=== PATIENT | female | born 2000 | race Caucasian/White ===

== ENCOUNTER 2020-01-30 04:03 | Inpatient (IN) | payer OTHER ==
--- OUTSIDE RECORDS SUMMARY | 2020-01-30 04:05 | XMS REPORT | Continuity of Care Document ---
:2000 Author Organization [facility] t Address [address]. [address] [place] [address] Care Team Providers Name Role Phone Pcp, Does Not Have A Attending Clinician Donnell Mota MD Attending Clinician [place], Sherita Main Attending Clinician Unavailable Doctor Unassigned, Name Attending Clinician Unavailable 2, Lab Attending Clinician Unavailable Nurse, Women's Health Attending Clinician Unavailable Eliecer FAULKNER Attending Clinician Problems This patient has no known problems. Allergies, Adverse Reactions, Alerts This patient has no known allergies or adverse reactions. Medications This patient has no known medications. Procedures This patient has no known procedures. Encounters Start End Encounter Admission Attending Care Care Encounter Source Date/Time Date/Time Type Type Clinicians Facility Department ID 2019-06-13 2019-06-13 Telephone Pcp, [facility] [id number] 00:00:00 00:00:00 Patient [place] [id number] Does Not [place] [id number] Have A Professio [phone] [address] 2019-06-13 2019-06-13 Case Verena Mota [facility] [id number] 00:00:00 00:00:00 Management Cam [place] [id number] [place] [id number] Professio [phone] [address] 2019-06-11 2019-06-11 [employer] Bhavna Narayanan [facility] [id number] 10:45:08 11:00:08 Visit Lab Main [place] [id number] [place] [id number] Professio [phone] [address] 2019-06-11 2019-06-11 Orders Doctor JENNIFER [id number] 00:00:00 00:00:00 Only Unassigned, [place] [id number] [facility] [id number] 2019-06-09 2019-06-09 [employer] 2, [facility] [place] [id number] 13:04:36 13:19:36 Visit Julien [id number] [place] [id number] Professio [phone] [address] 2019-06-09 2019-06-09 Telemedici Verena Mota [facility] [id number] 08:07:08 10:52:20 ne Visit Donnell [place] [id number] [place] [id number] Professio [phone] [address] 2019-05-31 2019-05-31 Telephone Nurse, [facility] [id number] 00:00:00 00:00:00 Women's Julien [id number] Health [place] [id number] Professio [phone] [address] 2019-05-03 2019-05-03 Office Eliecer [facility] [id number] 10:44:19 11:28:14 Visit Nano [place] [id number] [place] [id number] Professio [phone] [address] Results This patient has no known results.
[2020-01-30] MEDS ORDERED: MEPERIDINE HCL 25 MG/ML SYR IV PRN (04:09)
[2020-01-30] MEDS ORDERED: Ringers Lactate 1,000 ML IV PRN (04:09)
[2020-01-30] MEDS ORDERED: PROMETHAZINE INJ 25 MG/ML AMP IM PRN (04:09)
[2020-01-30] MEDS ORDERED: BUTORPHANOL 1 MG/ML INJ IV PRN (04:09)
[2020-01-30] MEDS ORDERED: CARBOPROST TROME 250 MCG/ML IM PRN (04:09)
[2020-01-30] MEDS ORDERED: METHYLERGONOVINE 0.2MG/ML AMP IM PRN (04:09)
[2020-01-30] MEDS ORDERED: OXYTOCIN/LR 20 UNIT/1,000 ML BAG IV SCH (05:00)
[2020-01-30] MEDS ORDERED: Ringers Lactate 1,000 ML IV SCH (05:00)
[2020-01-30 05:56] LABS: Urine Appearance TURBID; Urine Bilirubin NEGATIVE (NEG); Urine Blood NEGATIVE (NEG); Urine Color YELLOW; Urine Glucose NEGATIVE (NEG); Urine Protein 1+ (NEG)
[2020-01-30 05:57] LABS: Basophils % 0.2 % (0-1.3); Hematocrit 40.4 % (36.0-45.0); Lymphocytes % 39.1 % (15.3-44.8); RBC Red Blood Cell Count 4.53 M/uL (3.86-4.86)
[2020-01-30 06:18] LABS: Urine Bacteria >50 /HPF (<20); Urine RBC <5 /HPF (NONE SEEN); Urine Urothelial Cells <5 /HPF (NONE SEEN)
[2020-01-30 06:32] VITALS: BMI 4780.4
[2020-01-30 07:47] LABS: Urine Appearance CLEAR; Urine Bilirubin NEGATIVE (NEG); Urine Blood NEGATIVE (NEG); Urine Color YELLOW; Urine Glucose NEGATIVE (NEG); Urine Protein NEGATIVE (NEG); Urine Specific Gravity <=1.005 (1.005-1.030); Urine Urobilinogen 0.2 mg/dL (0.2-1.0); Urine pH 7.5 (5.0-7.0)
[2020-01-30 08:02] LABS: Urine Bacteria <20 /HPF (<20); Urine RBC <5 /HPF (NONE SEEN)
[2020-01-30 08:03] LABS: Urine Urothelial Cells <5 /HPF (NONE SEEN)
--- NOTE | 2020-01-30 11:47 | PREOPHP ---
Date of Admission: 01/30/2020 History Of Present Illness: A 19-year-old 2, para 0, now at 39 weeks, followed antepartum wi thout complications. Family History: The patient is a twin, but otherwise no significant family history. Past Medical History: She has had her wisdom teeth removed. Had chlamydia in the past, but that was treated. Medications: She is on vitamins. Social History: Does not smoke. Allergies: NO ALLERGIES. Physical Examination: HEENT: Clear. Pupils equal, round, reactive to light and accommodation. Conjunctivae well perfused . No oral, lingual, or buccal lesions. Chest and Lungs: Clear. Heart: Without murmurs, thrills, heaves, or rubs. Breasts: Not examined. Abdomen: Term size. Baby is vertex. Cervix is 2 cm, possibly 2.5, 60 to 70% effaced, vertex well a pplied, -1 station. FHTs normal reactive. Rupture of membranes, clear fluid. Assessment And Plan: The patient is COVID positive. She will merit wearing her mask throughout the labor. She has absolutely no symptoms. Thorough discussion today. Labor talk given. Anticipate delivery sometime later today. LUIS ARMANDO/WISAM Voice ID: [id number]
[2020-01-30] MEDS ORDERED: FENTANYL/BUPIVACAINE/NS/PF 200 MCG/100 ML BAG EP PRN (11:54)
[2020-01-30] MEDS ORDERED: FENTANYL CITR 100 MCG/2 ML IV ONE (11:54)
[2020-01-30] MEDS ORDERED: BUPIVACAINE 0.25% PF 10 ML VIAL IV PRN (11:54)
--- NOTE | 2020-01-30 12:33 | PN ---
The patient is now on 18 milliunits, jose regularly. FHTs normal. She has had 1 dose of stad ol. The patient is now 3 to possibly 3.5 cm, 60%, -1 station. She is requesting epidural. We will start hydration and begin her preparation for the epidural. Blood pressures are normal at this point . When she came in, she had +1 protein on the urine, but that was plain catheterized specimen showed negative. I do not believe she has preeclampsia at this point. Follow closely, but I think while s he reaches 5 cm, she will start making more rapid progress. LUIS ARMANDO/WISAM Voice ID: [id number] Report ID: [id number]
[2020-01-30] MEDS ORDERED: FENTANYL CITR 100 MCG/2 ML ONE (18:46)
[2020-01-30] MEDS ORDERED: BUPIVACAINE 0.25% PF 10 ML VIAL ONE (18:47)
--- NOTE | 2020-01-30 20:28 | PN ---
Bridgette aKt is jose every 2-3 minutes. She is on 20 milliunits of Pitocin. We will move her to 22. She is so numb she cannot feel her contractions, can barely move her legs, will go from 10 to 8 on the epidural maintenance. Baby looks good. Vital signs are all normal, well within the n ormal range. No suspicion of preeclampsia. Pelvic rocks suggested, but since the patient is unable to tell when she is having contractions, this may be somewhat problematic. She knows that if she guy s not make progress in the next 2-3 hours, then we will consider , but she does not have a re ally large baby and at this point, there is no castellanos, so we will see what happens over the next 2-3 ho felix. LUIS ARMANDO/WISAM Voice ID: [id number] Report ID: [id number]
[2020-01-30] MEDS ORDERED: LIDOCAINE 1% MPF 30 ML VIAL ONE (21:34)
[2020-01-30] MEDS ORDERED: CARBOPROST TROME 250 MCG/ML IM ONE (21:34)
[2020-01-30] MEDS ORDERED: METHYLERGONOVINE 0.2MG/ML AMP IM ONE (21:34)
[2020-01-30] MEDS ORDERED: METOCLOPRAMIDE 10 MG/2mL INJ ONE (23:25)
[2020-01-30] MEDS ORDERED: FAMOTIDINE 20 MG/2 ML VIAL IV ONE (23:25)
[2020-01-30] MEDS ORDERED: CEFAZOLIN/SWI 2gm 2 GM/20 ML SYR ONE (23:25)
[2020-01-30] MEDS ORDERED: NA CIT/CITRIC AC 30 ML ORAL UDC ONE (23:25)
[2020-01-30] MEDS ORDERED: LIDOCAINE 2% W/EPI 1:200,000 MPF 20 ML VIAL IM ONE (23:48)
[2020-01-30 23:49] LABS: RPR (Rapid Plasma Reagin) NON-REACT (NON-REACT)
--- NOTE | 2020-01-31 00:02 | PN ---
The patient has been re-dosed with her epidural. She is now comfortable, in fact again a little bit too comfortable. She has progressed to 8 cm. I think the baby is still posterior. She was having m inimal firm contractions as the Pitocin was earlier turned off and never turned back on. I put on a scalp electrode. Baby reacted very well, good variability, probably sleeping, but we have to have brown rder contractions. We will start the contraction pattern back and see if she makes progress. Otherw ise, we will talk about operative delivery. Right now, I think she has a good chance of vaginal deli very if we can just get some good firm contractions. LUIS ARMANDO/WISAM Voice ID: [id number] Report ID: [id number]
[2020-01-31] MEDS ORDERED: OXYTOCIN 10 UNIT/ML ML IV ONE (00:05)
[2020-01-31] MEDS ORDERED: MORPHINE SULFATE/PF 1 MG/ML (10 ML AMP) ONE (00:21)
--- NOTE | 2020-01-31 00:22 | PN ---
The patient has progressed to 7.5 to 8. Baby is straight occiput posterior. She is requesting maty tracie at this point. Baby is showing tachycardia, still has good variability. I suggested the patient wait another hour to see if she dilates rest of the way and she says no, she wishes to proceed. Inf ection, blood loss, anesthetic complications, injury to bladder, bowel, ureter discussed. We will tr y to use the epidural. Dr. Garcia will be notified. Will start preparations now for at ma ternal request. A 2 g of Ancef ordered for prophylaxis. MEAGANC/MODL Voice ID: [id number] Report ID: [id number]
[2020-01-31] MEDS ORDERED: Oxycodone HCl/Acetaminophen 1 TAB TAB PO PRN ×2 (00:41)
[2020-01-31] MEDS ORDERED: KETOROLAC 30 MG/ML INJ IM PRN (00:41)
[2020-01-31] MEDS ORDERED: METHYLERGONOVINE 0.2MG/ML AMP IM PRN (00:41)
[2020-01-31] MEDS ORDERED: BISACODYL 10 MG RECTAL SUPP PR PRN (00:41)
[2020-01-31] MEDS ORDERED: ONDANSETRON 4 MG/2 ML VIAL IV PRN (00:41)
[2020-01-31] MEDS ORDERED: DIPHENHYDRAMINE 25 MG TAB/CAP PO PRN (00:41)
[2020-01-31] MEDS ORDERED: CEFAZOLIN 1GM (PREMIX IV) 50 ML IV ONE (00:41)
[2020-01-31] MEDS ORDERED: ONDANSETRON 4 MG (ODT) TAB PO PRN (00:41)
[2020-01-31] MEDS ORDERED: IBUPROFEN 600 MG TAB PO PRN (00:41)
[2020-01-31] MEDS ORDERED: ACETAMINOPHEN 500 MG TAB PO PRN ×2 (00:41)
[2020-01-31] MEDS ORDERED: OXYTOCIN/LR 20 UNIT/1,000 ML BAG IV SCH (01:00)
[2020-01-31] MEDS ORDERED: D5LR 1,000 ML with OXYTOCIN 20 UNIT IV SCH ×2 (01:00)
[2020-01-31] MEDS ORDERED: METHYLERGONOVINE 0.2 MG TAB PO ONE ×3 (02:30→12:10)
[2020-01-31] MEDS ORDERED: OXYTOCIN/LR 20 UNIT/1,000 ML BAG IV ONE (05:01)
--- NOTE | 2020-01-31 05:25 | OP ---
Surgeon: Mati Johnson MD Indication And Procedure: Pippa Kat, 19-year-old 2, para 0, at 39 weeks came in for induction this morning, noted to be 3 cm rupture of membranes, clear fluid. Had Stadol and Phen ergan initially followed by epidural anesthesia at her request at approximately 3.5 to 4 cm. Progres sed slowly during the day. Finally, achieved approximately 7 cm. Baby was noted to be occiput poste rior. After approximately 2 hours to 2.5 hours with no progress, the patient requested . S he was informed that she could wait another hour if she wish because the baby was in good shape and e verything was normal, but she insisted on at that point. Infection; blood loss; anesthetic complications; injury to bladder, bowel, ureter; postoperative complications; clots in legs; and pne umonia discussed. The patient knows fully well this does not constitute all the possible problems th at could occur during or following the surgery. Dr. Garcia, who had done the epidural prior was andreina led Dr. 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 The epidural was reinjected and was very effective. Time-out was performed. After prepping and draping, a Pfannenstiel incision was created. The incision was c arried to the fascia. The fascia was incised and incision carried transversely bilaterally. Anterio r and posterior fascial planes were developed with both blunt and sharp dissections underlying rectus muscle, peritoneum, and entered. Low transverse bladder flap developed. Low transverse u terine incision created. An approximately 7-pound male infant was delivered straight occiput posteri or with molding of the head. Apgars 9 and 9. Cord blood specimen obtained. Placenta was removed ma nually. Uterus cleared of clot and blood and exteriorized. Uterus mildly hypotonic. 0.2 mg of Meth ergine as well as IV drip Pitocin and massage. Estimated blood loss during the procedure 1000 cc. U terus was closed with a running lock stitch of 1 chromic. Inspection of the suture line showed no fu rther bleeding. The cul-de-sac was cleared of clot and blood. The uterus was replaced in the perito trenton cavity and gutters were cleared of any clot and blood which was minimal. The incision line was again reinspected, no further bleeding. Muscles were reapproximated with 2 stitches of 0 Vicryl. Th e fascia was closed with 1 Vicryl running from either angle to the midline. Subcutaneous tissue clos ed with 2-0 plain. Dario used for the skin. The patient had been given 2 g of Ancef prior to the procedure. Tolerated all procedures well. Transferred back to her room in good condition. Final Diagnoses: Term intrauterine . Failure to progress in labor. Maternal request, prim wliliam section. Epidural anesthesia. Mild uterine hypotonus. Straight occiput posterior posi tion of baby. MEAGANC/MODL Voice ID: [id number] Report ID: [id number]
[2020-01-31 06:29] LABS: Urine Appearance CLEAR; Urine Bilirubin NEGATIVE (NEG); Urine Blood 2+ (NEG); Urine Color YELLOW; Urine Glucose NEGATIVE (NEG); Urine Protein TRACE (NEG); Urine Specific Gravity <=1.005 (1.005-1.030); Urine pH 7.5 (5.0-7.0)
[2020-01-31 06:36] LABS: Urine Bacteria NONE SEEN /HPF (<20); Urine RBC <5 /HPF (NONE SEEN)
[2020-01-31] MEDS ORDERED: CEFAZOLIN/SWI 1gm 1 GM/10 ML SYR IV ONE (08:00)
--- NOTE | 2020-01-31 08:02 | PN ---
Postoperatively, patient has done well. Output is good. H and H with basically no change. She has no AUDIT CONTROL CLERK symptoms. No post spinal block. No post epidural problems. Full postop talk given. I have offered to discontinue patient's [place] at noon or 4 p.m. she says she may want it in until tomorrow. We will let her decide herself. We will put her on liquids at this point. We will start regular fo od tomorrow. Her blood pressures have been elevated at times. Admission urine showed +1 protein, bu t that was a clean-catch catheterized specimen during the labor was negative. Specimen from her Fole y bag last night showed trace. I think that the chance for significant preeclampsia is minimal, but we will start her on phenobarbital every 8 hours for the time she is here and maybe for 2-3 days when she goes home. Full postoperative talk given. I will go over it again tomorrow. The patient shoul d be eligible to go home tomorrow afternoon if she continues to progress well. She is nonimmune to r ubella and will offer rubella immunization before she leaves. LUIS ARMANDO/ANUJAL Voice ID: [id number] Report ID: [id number]
[2020-01-31] MEDS: KETOROLAC 30 MG/ML INJ IV PRN ×2 (09:20→18:25)
[2020-01-31] MEDS: METHYLERGONOVINE 0.2 MG TAB PO PRN ×2 (12:00→16:00)
[2020-01-31] MEDS: PHENOBARBITAL 32.4 MG TABLET PO SCH (22:09)
[2020-02-01] MEDS: PHENOBARBITAL 32.4 MG TABLET PO SCH (06:09)
--- NOTE | 2020-02-01 07:24 | PN ---
The patient had her catheter removed last night and is voiding well. IV is out. She is ambulating. Full postop talk given because she delivered around midnight. We will keep her until course tomorro w, the locum physician will dismiss her at that point. We have gone over full dismissal instructions . She knows to call the office, come back and see me Thursday if next week for incision inspection, to report any temperature elevation of 100 degrees or greater, severe pain, bleeding problems, or any o ther type of difficulties. Blood pressures this morning slightly elevated, but all the others have b een normal. Her protein was negative even in the urine, I do not think she has preeclampsia. No com plaints or problems this morning. Tdap and flu shots again suggested. She is nonimmune to rubella a nd this has been discussed with the patient and nurses been instructed to offer patient immunization before she leaves. LUIS ARMANDO/WISAM Voice ID: [id number] Report ID: [id number]
--- NOTE | 2020-02-01 09:28 | PN ---
Patient told the nurses she does not want to go home this afternoon. If the baby is dismissed and if the patient's blood pressures are good today, and she is ambulating and voiding, which so far she is , she can go home around 4 or 5 this afternoon. She will let the nurses know if she wishes to go [place] e today. Otherwise, she will go home tomorrow morning when the on-call doctor sees her at that point . LUIS ARMANDO/WISAM Voice ID: [id number] Report ID: [id number]
[2020-02-01] MEDS ORDERED: PHENOBARBITAL 32.4 MG TABLET PO SCH ×2 (14:00→17:00)
[2020-02-01] MEDS ORDERED: MEASLES,MUMPS,RUBELLA VAC 0.5ML SQVAC ONE ×2 (16:25→16:30)
[2020-02-01 17:58] VITALS: BP 153/96; TEMP 97.3
[2020-02-02 20:37] LABS: HBsAG Nonreactive (Nonreactive)
--- NOTE | 2020-02-09 12:11 | DS ---
Date of Discharge: 02/01/2020 Hospital Course: 19-year-old 2, para 0, at 39 weeks, underwent primary section for failure to progress. Epidural anesthesia was used. Mild uterine hypotonus. Estimated blood loss 10 00 cc. Postoperatively, did well, was dismissed to return to my office in 1 week for followup to rep ort any temperature elevation of 100 degrees or greater, severe pain, heavy bleeding, or any other ty pe of abnormalities. Dismissed with tramadol for analgesia. She knows this goes through the breast milk. Offered Tdap and flu shots. No post epidural problems. Final Diagnoses: Term intrauterine 39 weeks. Primary section. Mild uterine hype rtonus. Epidural anesthesia. Tdap and flu shots offered. LUIS ARMANDO/WISAM Voice ID: [id number] Report ID: [id number]
== END 2020-02-01 17:25 | disposition home or self-care (01) | DRG 786 ==
LOC: 2ND-WC 04:03
PROVIDERS: ADMIT Specialist; ATTEND Specialist
PROC: 10907ZC Drainage of Amniotic Fluid, Therapeutic from Products of Conception, Via Natural or Artificial Opening (ICD-10-PCS; 2020-01-31)
PROC: 10D00Z1 Extraction of Products of Conception, Low, Open Approach (ICD-10-PCS; principal; 2020-01-31 00:05)
DX: O61.0 Failed medical induction of labor (principal); U07.1 COVID-19; O98.52 Other viral diseases complicating childbirth; O62.2 Other uterine inertia; Z3A.39 39 weeks gestation of pregnancy; Z37.0 Single live birth; Z23 Encounter for immunization
CPT/HCPCS: 36415; 81001; 85014; 85025; 86592; 86901; 87086; 87088; 87340; 88307; 90471; 90707; J0595; J0690; J2210; J2550; J2590; J2765; J3010; J7120; J7121; U0003

== ENCOUNTER 2021-06-27 11:54 | Emergency (ER) | payer OTHER ==
[2021-06-27] MEDS ORDERED: MORPHINE 4 MG/ML SYR ONE (12:22)
[2021-06-27] MEDS ORDERED: FAMOTIDINE 20 MG/2 ML VIAL IV ONE (12:22)
[2021-06-27] MEDS ORDERED: NA CHLORIDE 0.9% 1,000 ML ONE ×2 (12:22→14:19)
[2021-06-27] MEDS ORDERED: ONDANSETRON 4 MG/2 ML VIAL ONE (12:22)
[2021-06-27 12:45] LABS: Absolute Lymphocytes (CBC) 1.1 K/uL (0.7-4.9); Hematocrit 42.4 % (36.0-45.0); Lymphocytes % 31.5 % (15.3-44.8); MPV 7.7 fL (7.6-11.3); RBC Red Blood Cell Count 4.89 M/uL (3.86-4.86)
[2021-06-27 13:08] LABS: ALT/SGPT 28 U/L (12-78); AST/SGOT 15 U/L (15-37); Albumin 3.5 g/dL (3.4-5.0); Alkaline Phosphatase 83 U/L (45-117); BUN Blood Urea Nitrogen 11 mg/dL (7-18); Bicarbonate 24 mmol/L (21-32); Bilirubin Total 0.5 mg/dL (0.2-1.0); Glucose Level 88 mg/dL (74-106); Lipase 99 U/L (73-393); Potassium 3.5 mmol/L (3.5-5.1); Protein, Total 7.2 g/dL (6.4-8.2); Sodium Level 137 mmol/L (136-145)
[2021-06-27 14:47] LABS: Urine Blood Negative (Negative); Urine Glucose Negative (Negative); Urine Protein Negative (Negative); Urine Specific Gravity 1.015 (1.005-1.030); Urine pH 6.5 (5.0-7.0)
[2021-06-27 14:49] LABS: Urine Specific Gravity/Preg 1.015 (1.005-1.030)
[2021-06-27 14:58] LABS: Urine Bacteria <20 /HPF (<20); Urine RBC NONE SEEN /HPF (NONE SEEN)
--- NOTE | 2021-06-27 15:21 | RAD REPORT ---
EXAM DESCRIPTION: CTAbdomen Pelvis W Contrast - 06/27/2021 3:14 pm CLINICAL HISTORY: Epigastric pain COMPARISON: No comparisons TECHNIQUE: CT of the abdomen and pelvis was performed. All CT scans are performed using dose optimization technique as appropriate and may include automated exposure control or mA/KV adjustment according to patient size. FINDINGS: Lower chest: No acute abnormality. Liver: No acute abnormality or suspicious lesions. Biliary: No biliary ductal dilatation. Stomach: No significant focal abnormality. Duodenum: No significant focal abnormality. Pancreas: No significant abnormality. Spleen: No significant abnormality. Adrenal: No suspicious lesions. Kidney/ureter: No hydronephrosis. No renal calculi. Retroperitoneum: No retroperitoneal adenopathy. Vascular: No aneurysm. Bowel: No significant focal abnormality. Normal appendix. Peritoneum: No ascites or free air. Bladder: Grossly unremarkable. Reproductive: No adnexal masses. Bones: No acute fracture. Other: n/a IMPRESSION: No acute intra-abdominal or pelvic finding. Normal appendix.
[2021-06-27] MEDS ORDERED: LIDOCAINE VISCOUS 2% SOLN 15 ML UDC ONE (15:48)
[2021-06-27] MEDS ORDERED: MAGNES/ALUMIN/SIMET 30ML UCUP ONE (15:48)
--- NOTE | 2021-06-27 16:09 | ER ---
Nurse's Notes [facility] Name: Pippa Lopez Age: 21 yrs Sex: Female : 2000 Arrival Date: 06/27/2021 Time: 11:55 Bed 4 Private MD: Diagnosis: Nausea with vomiting, unspecified Presentation: 06/27 12:08 Chief complaint: Patient states: NV and Epigastric pain x 2 days; started Thursday night vg1 into Thursday, states noticed a fever as well and "not having any energy at all" ; also stated intolerance to food/fluids. Coronavirus screen: Vaccine status: Patient reports receiving the 2nd dose of the covid vaccine. Client denies travel out of the [place] in the last 14 days. Ebola Screen: Patient denies exposure to infectious person. Patient denies travel to an Ebola-affected area in the 21 days before illness onset. Initial Sepsis Screen: Does the patient meet any 2 criteria? No. Patient's initial sepsis screen is negative. Does the patient have a suspected source of infection? No. Patient's initial sepsis screen is negative. Risk Assessment: Do you want to hurt yourself or someone else? Patient reports no desire to harm self or others. Onset of symptoms was June 25, 2021. 12:08 Method Of Arrival: Ambulatory vg1 12:08 Acuity: ELVIRA 3 vg1 Triage Assessment: 12:10 General: Appears in no apparent distress. uncomfortable, Behavior is calm, cooperative. vg1 Pain: Complains of pain in epigastric area Pain currently is 6 out of 10 on a pain scale. Pain began 2-3 days ago. EENT: No signs and/or symptoms were reported regarding the EENT system. Neuro: Mckoen Agitation-Sedation Scale (RASS): 0 - Alert and Calm Level of Consciousness is awake, alert, obeys commands, Oriented to person, place, time, situation. Cardiovascular: Patient's skin is warm and dry. Respiratory: Airway is patent Respiratory effort is even, unlabored. GI: Abdomen is flat, non-distended, Last BM was June 24, 2021. Abdomen is tender to palpation in epigastric area Reports intolerance of fluids, intolerance of food, nausea, vomiting. : No signs and/or symptoms were reported regarding the genitourinary system. Derm: Skin is intact, is healthy with good turgor. Musculoskeletal: Circulation, motion, and sensation intact. 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 - Social history:: Smoking status: Reported history of juuling and/or vaping. Screenin:13 Abuse screen: Denies threats or abuse. Nutritional screening: No deficits noted. vg1 Tuberculosis screening: No symptoms or risk factors identified. Fall Risk No fall in past 12 months (0 pts). No secondary diagnosis (0 pts). IV access (20 points). Ambulatory Aid- None/Bed Rest/Nurse Assist (0 pts). Gait- Normal/Bed Rest/Wheelchair (0 pts) Mental Status- Oriented to own ability (0 pts). Total Vicente Fall Scale indicates No Risk (0-24 pts). Assessment: 12:13 Reassessment: SEE TRIAGE. vg1 13:15 Reassessment: Patient appears in no apparent distress at this time. Patient and/or vg1 family updated on plan of care and expected duration. Pain level reassessed. Patient is alert, oriented x 3, equal unlabored respirations, skin warm/dry/pink. 15:32 Reassessment: Patient appears in no apparent distress at this time. No changes from vg1 previously documented assessment. Patient and/or family updated on plan of care and expected duration. Pain level reassessed. Patient is alert, oriented x 3, equal unlabored respirations, skin warm/dry/pink. 17:03 Reassessment: Patient appears in no apparent distress at this time. Patient and/or vg1 family updated on plan of care and expected duration. Pain level reassessed. Patient is alert, oriented x 3, equal unlabored respirations, skin warm/dry/pink. Patient states feeling better. Vital Signs: 12:08 BP 128 / 87; Pulse 80; Resp 16; Temp 98.2(O); Pulse Ox 100% on R/A; Weight 70.76 kg; vg1 Height 5 ft. 1 in. (154.94 cm); Pain 6/10; 13:34 BP 108 / 74; Pulse 58; Resp 15; Pulse Ox 96% ; jl7 14:21 BP 102 / 67; Pulse 63; Resp 15; Pulse Ox 100% ; jl7 15:32 BP 106 / 68; Pulse 65; Resp 15; Pulse Ox 98% on R/A; vg1 12:08 Body Mass Index 29.48 (70.76 kg, 154.94 cm) vg1 ED Course: 11:55 Patient arrived in ED. as 12:00 Violet Puente FNP is PHCP. jh7 12:00 Carlos Rodriguez MD is Attending Physician. jh7 12:08 Cintia Ventura, CHITRA is Primary Nurse. vg1 12:10 Triage completed. vg1 12:10 Arm band placed on. vg1 12:13 Patient has correct armband on for positive identification. Bed in low position. Call vg1 light in reach. Side rails up X 1. 12:25 Initial lab(s) drawn, by ny, sent to lab. Inserted saline lock: 20 gauge in right vg1 antecubital area, using aseptic technique. Blood collected. 15:16 CT Abd/Pelvis - IV Contrast Only In Process Unspecified. EDMS 17:03 No provider procedures requiring assistance completed. IV discontinued, intact, vg1 bleeding controlled, No redness/swelling at site. Pressure dressing applied. Administered Medications: 12:27 Drug: NS 0.9% 1000 ml Route: IV; Rate: 1 bolus; Site: right antecubital; vg1 14:48 Follow up: IV Status: Completed infusion; IV Intake: 1000ml vg1 12:27 Drug: Zofran (Ondansetron) 4 mg Route: IVP; Site: right antecubital; vg1 14:48 Follow up: Response: No adverse reaction; Marked relief of symptoms vg1 12:29 Drug: Pepcid (famotidine) 20 mg Route: IVP; Site: right antecubital; vg1 14:48 Follow up: Response: No adverse reaction; Marked relief of symptoms vg1 12:31 Drug: morphine 4 mg {Note: RASS 0.} Route: IVP; Site: right antecubital; vg1 14:48 Follow up: Response: No adverse reaction; Pain is decreased vg1 14:17 Drug: NS 0.9% 1000 ml Route: IV; Rate: 1 bolus; Site: right antecubital; vg1 17:04 Follow up: IV Status: Completed infusion; IV Intake: 1000ml vg1 15:52 Drug: GI Cocktail without - (Maalox Suspension 30 ml, Lidocaine Liquid 2 % 15 vg1 ml) Route: PO; 17:04 Follow up: Response: No adverse reaction; Marked relief of symptoms vg1 Intake: 14:48 IV: 1000ml; Total: 1000ml. vg1 17:04 IV: 1000ml; Total: 2000ml. vg1 Outcome: 16:09 Discharge ordered by . [email or web address] 17:03 Discharged to home ambulatory, with family. vg1 17:03 Condition: good 17:03 Discharge instructions given to patient, Instructed on discharge instructions, follow up and referral plans. medication usage, Demonstrated understanding of instructions, follow-up care, medications, Prescriptions given X 1. 17:04 Patient left the ED. vg1 Signatures: Dispatcher [employer] Jaqueline Villa Jahala, RN RN 7 Cintia Ventura RN RN vg1 Violet Puente, OFFICE REP OFFICE REP [facility]
--- NOTE | 2021-06-27 16:10 | EDPHYS ---
Physician Documentation [facility] Name: Pippa Lopez Age: 21 yrs Sex: Female : 2000 Arrival Date: 06/27/2021 Time: 11:55 Bed 4 Private MD: ELENI Physician Carlos Rodriguez HPI: 06/27 12:58 This 21 yrs old Female presents to ER via Ambulatory with complaints of Epigastric Pain.jh7 12:58 The patient presents with abdominal pain in the epigastric area. Onset: The jh7 symptoms/episode began/occurred 2.5 day(s) ago. Associated signs and symptoms: Pertinent positives: nausea and vomiting, fever. Patient presents with nausea, vomiting, and intermittent fever for 2 1/2 days. She reports that she has not been able to hold anything down. Last BM 3 days ago. She is currently on her menstrual cycle now.. 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 - Social history:: Smoking status: Reported history of juuling and/or vaping. ROS: 12:58 Constitutional: Negative for fever, chills, and weight loss, Cardiovascular: Negative jh7 for chest pain, palpitations, and edema, Respiratory: Negative for shortness of breath, cough, wheezing, and pleuritic chest pain, Back: Negative for injury and pain, Skin: Negative for injury, rash, and discoloration, Neuro: Negative for headache, weakness, numbness, tingling, and seizure. 12:58 Abdomen/GI: Positive for abdominal pain, nausea and vomiting, Negative for diarrhea, black/tarry stool. 12:58 All other systems are negative. Exam: 13:15 Constitutional: This is a well developed, well nourished patient who is awake, alert, jh7 and in no acute distress. ENT: Oropharynx with no redness, swelling, or masses, exudates, or evidence of obstruction, uvula midline. Mucous membranes moist. Cardiovascular: Regular rate and rhythm with a normal S1 and S2. No gallops, murmurs, or rubs. Normal PMI, no JVD. No pulse deficits. Respiratory: Lungs have equal breath sounds bilaterally, clear to auscultation and percussion. No rales, rhonchi or wheezes noted. No increased work of breathing, no retractions or nasal flaring. Back: No spinal tenderness. No costovertebral tenderness. Full range of motion. Skin: Warm, dry with normal turgor. Normal color with no rashes, no lesions, and no evidence of cellulitis. Neuro: Awake and alert, GCS 15, oriented to person, place, time, and situation. Normal gait. 13:15 Abdomen/GI: Inspection: abdomen appears normal, Bowel sounds: normal, Palpation: soft, moderate abdominal tenderness, in the epigastric area. Vital Signs: 12:08 BP 128 / 87; Pulse 80; Resp 16; Temp 98.2(O); Pulse Ox 100% on R/A; Weight 70.76 kg; vg1 Height 5 ft. 1 in. (154.94 cm); Pain 6/10; 13:34 BP 108 / 74; Pulse 58; Resp 15; Pulse Ox 96% ; jl7 14:21 BP 102 / 67; Pulse 63; Resp 15; Pulse Ox 100% ; jl7 15:32 BP 106 / 68; Pulse 65; Resp 15; Pulse Ox 98% on R/A; vg1 12:08 Body Mass Index 29.48 (70.76 kg, 154.94 cm) 1 MDM: 12:00 Patient medically screened. [facility] 13:20 ED course: The patient reports feeling much better after medication administration. [facility] Informed her that her labs are all normal. Currently awaiting CT scan.. 16:00 Differential diagnosis: cholecystitis, gastritis, Peptic Ulcer Disease. Data reviewed: [facility] vital signs, nurses notes, lab test result(s), radiologic studies, CT scan. Data interpreted: Pulse oximetry: is 98 %. Interpretation: normal. Counseling: I had a detailed discussion with the patient and/or guardian regarding: the historical points, exam findings, and any diagnostic results supporting the discharge/admit diagnosis, lab results. Response to treatment: the patient's symptoms have markedly improved after treatment. Special discussion: I discussed with the patient/guardian in detail that at this point there is no indication for admission to the hospital. It is understood, however, that if the symptoms persist or worsen the patient needs to return immediately for re-evaluation. 16:00 ED course: The patient remained hemodynamically stable throughout the ER visit. Her [facility] labs and her CT scan were negative. Her symptoms significantly improved after medication, and the patient was able to drink water and eat a sandwich before discharge. She was advised to increase her p.o. fluid intake at home, rest, and take prescribed medication as directed. If her symptoms return, worsen, or any new concerning symptoms develop, she is to return to the ER. The patient understood the plan of care.. 06/27 12:11 Order name: CBC with Diff; Complete Time: 12:58 [facility] 06/27 12:11 Order name: CMP; Complete Time: 13:14 [facility] 06/27 12:11 Order name: Lipase; Complete Time: 13:14 [facility] 06/27 12:11 Order name: Urine Microscopic Only; Complete Time: 15:00 [facility] 06/27 14:47 Order name: Urine Dipstick-Ancillary; Complete Time: 14:53 [facility] 06/27 14:48 Order name: Urine --Ancillary (enter results) 06/27 12:11 Order name: CT Abd/Pelvis - IV Contrast Only [facility] 06/27 14:50 Order name: Urine --Ancillary; Complete Time: 14:53 [facility] 06/27 12:11 Order name: IV Saline Lock; Complete Time: 12:36 [facility] 06/27 12:11 Order name: Labs collected and sent; Complete Time: 12:36 [facility] 06/27 12:11 Order name: Urine Dipstick-Ancillary (obtain specimen); Complete Time: 14:48 [facility] 06/27 12:11 Order name: Urine Test (obtain specimen); Complete Time: 14:48 [facility] 06/27 15:41 Order name: PO challenge; Complete Time: 16:17 [facility] Administered Medications: 12:27 Drug: NS 0.9% 1000 ml Route: IV; Rate: 1 bolus; Site: right antecubital; vg1 14:48 Follow up: IV Status: Completed infusion; IV Intake: 1000ml vg1 12:27 Drug: Zofran (Ondansetron) 4 mg Route: IVP; Site: right antecubital; vg1 14:48 Follow up: Response: No adverse reaction; Marked relief of symptoms vg1 12:29 Drug: Pepcid (famotidine) 20 mg Route: IVP; Site: right antecubital; vg1 14:48 Follow up: Response: No adverse reaction; Marked relief of symptoms vg1 12:31 Drug: morphine 4 mg {Note: RASS 0.} Route: IVP; Site: right antecubital; vg1 14:48 Follow up: Response: No adverse reaction; Pain is decreased vg1 14:17 Drug: NS 0.9% 1000 ml Route: IV; Rate: 1 bolus; Site: right antecubital; vg1 17:04 Follow up: IV Status: Completed infusion; IV Intake: 1000ml vg1 15:52 Drug: GI Cocktail without - (Maalox Suspension 30 ml, Lidocaine Liquid 2 % 15 vg1 ml) Route: PO; 17:04 Follow up: Response: No adverse reaction; Marked relief of symptoms vg1 Disposition Summary: 06/27/21 16:09 Discharge Ordered Location: Home [facility] Problem: new [facility] Symptoms: are resolved [facility] Condition: Stable [facility] Diagnosis - Nausea with vomiting, unspecified [facility] Followup: [facility] - With: Private Physician - When: 2 - 3 days - Reason: Recheck today's complaints Discharge Instructions: - Discharge Summary Sheet [facility] - Nausea and Vomiting, Adult [facility] Forms: - Medication Reconciliation Form [facility] - Thank You Letter [facility] Prescriptions: - ondansetron 4 mg Oral tablet,disintegrating - place 1 tablet by TRANSLINGUAL route 4 times per day; 15 tablet; Refills: 0, jh7 Product Selection Permitted Signatures: Dispatcher [employer] Cintia Lima, RN RN vg1 Violet Puente, HEARING THERAPY TEACHER HEARING THERAPY TEACHER [facility]
[2021-06-27 17:24] VITALS: TEMP 98.2
[2021-06-27 17:27] VITALS: BP 106/68; O2SAT 98
== END 2021-06-27 17:04 | disposition home or self-care (01) ==
LOC: ER 11:54
DX: R11.2 Nausea with vomiting, unspecified (principal); R10.13 Epigastric pain; R50.9 Fever, unspecified
CPT/HCPCS: 96361; 85025; 36415; 81025; 83690; 80053; 74177; 96375; 96374; 99284; Q9967; J7030 ×2; J2405; J3490; 81003; 81015

== ENCOUNTER 2021-10-01 08:50 | Emergency (ER) | payer OTHER ==
--- OUTSIDE RECORDS SUMMARY | 2021-10-01 08:55 | XMS REPORT | Continuity of Care Document ---
:[address] [facility] t Address [address] [place] [address] Care Team Providers Name Role Phone NANO GONZÁLES Attending Clinician Unavailable Pcp, Patient Does Not Have A Attending Clinician [phone] Andreia James MD Attending Clinician Pob, [facility] Main Attending Clinician Unavailable Doctor Unassigned, [place] Attending Clinician Unavailable 2, [facility] Attending Clinician Unavailable ANDREIA JAMES Attending Clinician Unavailable Nurse, [facility] Attending Clinician Unavailable Nano Gonzáles PA-C Attending Clinician Payers Payer Name Policy Type Policy Number Effective Date Expiration Date S itzel [employer] CHOICE POS [id number] 2018 00:00:00 II Problems Condition Condition Condition Status Onset Resolution Last Treating Co mments Source Name Details Category Date Date Treatment Clinician Date Pelvic Pelvic Disease Active Univers cramping cramping 4-16 ity of in in 00:00: [place] antepartum antepartum 00 Me dical period period Branch Mild Mild Disease Active Univers intermitte intermitte 4-16 [place] of nt asthma [place] asthma [place] without [place] Medical complicati complicati Br anch on on Need for Need for Disease Active Unive rs HPV HPV 7-27 ity of vaccine vaccine 00:00: [place] 00 Medical Branch Vaginal Vaginal Disease Active Univers irritation irritation 7-27 it y of 00:00: [place] 00 Medical Branch History of History of Disease Active U nivers urinary urinary 7-27 ity of tract tract 00:00: [place] infection infection 00 [facility] Branch [facility] leslie use leslie use 00:00: [place] 00 Medical [place] Allergies, Adverse Reactions, Alerts Allergy Allergy Status Severity Reaction(s) Onset Inactive Treating Comm ents Source Name Type Date Date Clinician Sulfa Propensi Active Rash Univers (Sulfona ty to 3-28 ity of mide adverse 00:00: [place] Antibiot reaction 00 Medica l ics) s Branch SULFA Drug Active Rash Univers (SULFONA Class 3-28 ity of MIDE 00:00: [place] ANTIBIOT 00 Medical ICS) Branch Social History Social Habit Start Date Stop Date Quantity Comments Source ASSERTION 2019-05-15 [facility] 00:00:00 [facility] Sex Assigned At Universit y of [facility] Alcohol intake 2019-06-09 2019-06-09 [facility] 00:00:00 00:00:00 [facility] Alcohol Comment 2018-12-06 2018-12-06 every thursday [facility] 00:00:00 [facility] Smoking Status Start Date Stop Date Source Never smoker General acute hospital Medications Ordered Filled Start Stop Current Ordering Indication Dosage Frequency Signature Comments Components Source Medication Medication Date Date Medication? Clinician (SIG) Name Name 2020- No Take by Unive rs vits62/FA/o 4-16 04-16 mouth. ity o f m3/dha/epa 21:12: 00:00 [place] ( 59 :00 Medical GUMMY ORAL) Branch Yes Take by Univer s vits62/FA/o 4-16 mouth. ity of m3/dha/epa 14:00: [place] ( 08 Medical GUMMY ORAL) Branch 2020-0 Yes Take by Univer s vit 4-16 mouth. ity of calc,iron,f 14:00: [place] [address] Medical ( Branch VITAMIN ORAL) 2020-0 Yes Take by Univer s vit 4-16 mouth. ity of calc,iron,[facility] 2020-0 Yes Take by Univer s vit 4-16 mouth. ity of calc,iron,f 14:00: [place] [address] Medical ( Branch VITAMIN ORAL) 2020-0 Yes Take by Univer s vit 4-16 mouth. ity of calc,iron,f 14:00: [address] ( Branch VITAMIN ORAL) Yes Take by [facility] vit 4-16 mouth. ity of calc,iron,f 14:00: [address] ( Branch VITAMIN ORAL) Yes Take by [facility] vit 4-16 mouth. ity of calc,iron,f 14:00: [address] ( Branch VITAMIN ORAL) albuterol Yes [id number] 2{puff} Inhale 2 Univers 90 4-16 Puffs ity of mcg/actuati 00:00: every 6 Alber[place] as on inhaler 00 (six) Medical hours as Branch needed for Wheezing, Shortness of Breath, Bronchospa sm or Chest tightness. albuterol Yes [id number] 2{puff} Inhale 2 Univers 90 4-16 Puffs ity of mcg/actuati 00:00: every 6 [place] as on inhaler 00 (six) Medical hours as Branch needed for Wheezing, Shortness of Breath, Bronchospa sm or Chest tightness. albuterol Yes [id number] 2{puff} Inhale 2 Univers 90 4-16 Puffs ity of mcg/actuati 00:00: every 6 [place] as on inhaler 00 (six) Medical hours as Branch needed for Wheezing, Shortness of Breath, Bronchospa sm or Chest tightness. albuterol Yes [id number] 2{puff} Inhale 2 Univers 90 4-16 Puffs ity of mcg/actuati 00:00: every 6 [place] as on inhaler 00 (six) Medical hours as Branch needed for Wheezing, Shortness of Breath, Bronchospa sm or Chest tightness. albuterol Yes [id number] 2{puff} Inhale 2 Univers 90 4-16 Puffs ity of mcg/actuati 00:00: every 6 [place] as on inhaler 00 (six) Medical hours as Branch needed for Wheezing, Shortness of Breath, Bronchospa sm or Chest tightness. proMETHazin 2018-02 Yes 1 tablet Un rashmi e 25 mg 0-16 po 30 min ity of tablet 00:00: before azithromyc Medical in dose Branch proMETHazin 2018-02 Yes 1 tablet Un rashmi e 25 mg 0-16 po 30 min ity of tablet 00:00: before [place] azithromyc Medical in dose Branch proMETHazin 2018-02 Yes 1 tablet Un rashmi e 25 mg 0-16 po 30 min ity of tablet 00:00: before azithromyc Medical in dose Branch proMETHazin 2018-02 Yes 1 tablet Un rashmi e 25 mg 0-16 po 30 min ity of tablet 00:00: before azithromyc Medical in dose Branch proMETHazin 2018-02 Yes 1 tablet Un rashmi e 25 mg 0-16 po 30 min ity of tablet 00:00: before azithromyc Medical in dose Branch proMETHazin 2018-02 Yes 1 tablet Un rashmi e 25 mg 0-16 po 30 min ity of tablet 00:00: before [place] azithromyc Medical in dose Branch proMETHazin 2018-02 Yes 1 tablet Un rashmi e 25 mg 0-16 po 30 min ity of tablet 00:00: before [place] azithromyc Medical in dose Branch proMETHazin 2018-02 Yes 1 tablet Un rashmi e 25 mg 0-16 po 30 min ity of tablet 00:00: before azithromyc Medical in dose Branch proMETHazin 2018-02 Yes 1 tablet Un rashmi e 25 mg 0-16 po 30 min ity of tablet 00:00: before [place] azithromyc Medical in dose Branch norgestimat Yes [id number] 1{tbl} Take 1 Univers e-ethinyl 8-24 tablet by ity o f estradiol 00:00: mouth [place] (TRINESSA 00 daily. Medical LO) Branch 0.18/0.215/ 0.25 mg-25 mcg tablet norgestimat 2017- Yes [id number] 1{tbl} Take 1 Univers e-ethinyl 8-24 tablet by ity o f estradiol 00:00: mouth [place] (TRINESSA 00 daily. Medical LO) Branch 0.18/0.215/ 0.25 mg-25 mcg tablet norgestimat 2017- Yes [id number] 1{tbl} Take 1 Univers e-ethinyl 8-24 tablet by ity o f estradiol 00:00: mouth [place] (TRINESSA 00 daily. Medical LO) Branch 0.18/0.215/ 0.25 mg-25 mcg tablet norgestimat 2017- Yes [id number] 1{tbl} Take 1 Univers e-ethinyl 8-24 tablet by ity o f estradiol 00:00: mouth [place] (TRINESSA 00 daily. Medical LO) Branch 0.18/0.215/ 0.25 mg-25 mcg tablet norgestimat 2020- No [id number] 1{tbl} Take 1 Univers e-ethinyl 8-24 04-16 tablet by ity of estradiol 00:00: 00:00 mouth [place] (TRINESSA 00 :00 daily. Medical LO) Branch 0.18/0.215/ 0.25 mg-25 mcg tablet Immunizations Ordered Immunization Filled Immunization Date Status Commen ts Source Name Name HPV9 2019-05-03 Completed University of 00:00:00 [facility] HPV9 2019-05-03 Completed University of 00:00:00 [facility] HPV9 2019-05-03 Completed University of 00:00:00 [facility] HPV9 2019-05-03 Completed University of 00:00:00 [facility] HPV9 2019-05-03 Completed University of 00:00:00 [facility] HPV9 2019-05-03 Completed University of 00:00:00 [facility] HPV9 2019-05-03 Completed University of 00:00:00 [facility] HPV9 2019-05-03 Completed University of 00:00:00 [facility] HPV9 2019-05-03 Completed University of 00:00:00 [facility] HPV9 2018-12-06 Completed University of 00:00:00 [facility] HPV9 2018-12-06 Completed University of 00:00:00 [facility] HPV9 2018-12-06 Completed University of 00:00:00 [facility] HPV9 2018-12-06 Completed University of 00:00:00 [facility] HPV9 2018-12-06 Completed University of 00:00:00 [facility] HPV9 2018-12-06 Completed University of 00:00:00 [facility] HPV9 2018-12-06 Completed University of 00:00:00 [facility] HPV9 2018-12-06 Completed University of 00:00:00 [facility] HPV9 2018-12-06 Completed University of 00:00:00 [facility] HPV9 2015-09-19 Completed University of 00:00:00 [facility] Branch HPV9 2015-09-19 Completed University of 00:00:00 [place] [facility] HPV9 2015-09-19 Completed University of 00:00:00 [place] [facility] HPV9 2015-09-19 Completed University of 00:00:00 [facility] Branch HPV9 2015-09-19 Completed University of 00:00:00 [place] [facility] HPV9 2015-09-19 Completed University of 00:00:00 [place] [facility] HPV9 2015-09-19 Completed University of 00:00:00 [place] [facility] HPV9 2015-09-19 Completed University of 00:00:00 [facility] Branch HPV9 2015-09-19 Completed University of 00:00:00 [facility] Meningococcal 2011-07-16 Completed University of Polysaccharide 00:00:00 [place] Medi andreina (groups A, C, Y and Branc h W-135) conjugate vaccine (MCV4P) TDAP (ADACEL) VACCINE 2011-07-16 Completed Uni versity of 00:00:00 [facility] Meningococcal 2011-07-16 Completed University of Polysaccharide 00:00:00 [place] Medi andreina (groups A, C, Y and Branc h W-135) conjugate vaccine (MCV4P) TDAP (ADACEL) VACCINE 2011-07-16 Completed Uni versity of 00:00:00 [facility] TDAP (ADACEL) VACCINE 2011-07-16 Completed Uni versity of 00:00:00 [facility] Meningococcal 2011-07-16 Completed University of Polysaccharide 00:00:00 [place] Medi andreina (groups A, C, Y and Branc h W-135) conjugate vaccine (MCV4P) TDAP (ADACEL) VACCINE 2011-07-16 Completed Uni versity of 00:00:00 [facility] Meningococcal 2011-07-16 Completed University of Polysaccharide 00:00:00 [place] Medi andreina (groups A, C, Y and Branc h W-135) conjugate vaccine (MCV4P) TDAP (ADACEL) VACCINE 2011-07-16 Completed Uni versity of 00:00:00 [facility] Meningococcal 2011-07-16 Completed University of Polysaccharide 00:00:00 [place] Medi andreina (groups A, C, Y and Branc h W-135) conjugate vaccine (MCV4P) TDAP (ADACEL) VACCINE 2011-07-16 Completed Uni versity of 00:00:00 [facility] Meningococcal 2011-07-16 Completed University of Polysaccharide 00:00:00 [place] Medi andreina (groups A, C, Y and Branc h W-135) conjugate vaccine (MCV4P) Meningococcal 2011-07-16 Completed University of Polysaccharide 00:00:00 [place] Medi andreina (groups A, C, Y and Branc h W-135) conjugate vaccine (MCV4P) TDAP (ADACEL) VACCINE 2011-07-16 Completed Uni versity of 00:00:00 [facility] Meningococcal 2011-07-16 Completed University of Polysaccharide 00:00:00 [place] Medi andreina (groups A, C, Y and Branc h W-135) conjugate vaccine (MCV4P) TDAP (ADACEL) VACCINE 2011-07-16 Completed Uni versity of 00:00:00 [facility] Meningococcal 2011-07-16 Completed University of Polysaccharide 00:00:00 [place] Medi andreina (groups A, C, Y and Branc h W-135) conjugate vaccine (MCV4P) TDAP (ADACEL) VACCINE 2011-07-16 Completed Uni versity of 00:00:00 [facility] HEPATITIS A 2008-08-16 Completed University of 00:00:00 [facility] Varicella 2008-08-16 Completed University of (varivax)(chicken 00:00:00 [place] M edical pox) Branch HEPATITIS A 2008-08-16 Completed University of 00:00:00 [facility] Varicella 2008-08-16 Completed University of (varivax)(chicken 00:00:00 [place] M [facility]ical pox) Branch HEPATITIS A 2008-08-16 Completed University of 00:00:00 [facility] Varicella 2008-08-16 Completed University of (varivax)(chicken 00:00:00 [place] M [facility]ical pox) Branch HEPATITIS A 2008-08-16 Completed University of 00:00:00 [facility] Varicella 2008-08-16 Completed University of (varivax)(chicken 00:00:00 [place] M edical pox) Branch HEPATITIS A 2008-08-16 Completed University of 00:00:00 [facility] HEPATITIS A 2008-08-16 Completed University of 00:00:00 [facility] Varicella 2008-08-16 Completed University of (varivax)(chicken 00:00:00 [place] M [facility]ical pox) Branch HEPATITIS A 2008-08-16 Completed University of 00:00:00 [facility] Varicella 2008-08-16 Completed University of (varivax)(chicken 00:00:00 [place] M [facility]ical pox) Branch HEPATITIS A 2008-08-16 Completed University of 00:00:00 [facility] Varicella 2008-08-16 Completed University of (varivax)(chicken 00:00:00 [place] M [facility]ical pox) Branch Varicella 2008-08-16 Completed University of (varivax)(chicken 00:00:00 [place] M edical pox) Branch HEPATITIS A 2008-08-16 Completed University of 00:00:00 [facility] Varicella 2008-08-16 Completed University of (varivax)(chicken 00:00:00 [place] M edical pox) Branch MMR 2003-05-24 Completed University of 00:00:00 [facility] Polio (IPV/OPV) 2003-05-24 Completed Universit y of 00:00:00 [facility] Varicella 2003-05-24 Completed University of (varivax)(chicken 00:00:00 [place] M edical pox) Branch DTAP 2003-05-24 Completed University of 00:00:00 [facility] MMR 2003-05-24 Completed University of 00:00:00 [facility] Polio (IPV/OPV) 2003-05-24 Completed Universit y of 00:00:00 [facility] Varicella 2003-05-24 Completed University of (varivax)(chicken 00:00:00 [place] M [facility]ical pox) Branch DTAP 2003-05-24 Completed University of 00:00:00 [facility] MMR 2003-05-24 Completed University of 00:00:00 [facility] Polio (IPV/OPV) 2003-05-24 Completed Universit y of 00:00:00 [facility] Varicella 2003-05-24 Completed University of (varivax)(chicken 00:00:00 [place] M edical pox) Branch DTAP 2003-05-24 Completed University of 00:00:00 [facility] DTAP 2003-05-24 Completed University of 00:00:00 [facility] MMR 2003-05-24 Completed University of 00:00:00 [facility] Polio (IPV/OPV) 2003-05-24 Completed Universit y of 00:00:00 [facility] Varicella 2003-05-24 Completed University of (varivax)(chicken 00:00:00 [place] M [facility]ical pox) Branch DTAP 2003-05-24 Completed University of 00:00:00 [facility] MMR 2003-05-24 Completed University of 00:00:00 [facility] Polio (IPV/OPV) 2003-05-24 Completed Universit y of 00:00:00 [facility] Varicella 2003-05-24 Completed University of (varivax)(chicken 00:00:00 [place] M [facility]ical pox) Branch DTAP 2003-05-24 Completed University of 00:00:00 [facility] MMR 2003-05-24 Completed University of 00:00:00 [facility] Polio (IPV/OPV) 2003-05-24 Completed Universit y of 00:00:00 [facility] Varicella 2003-05-24 Completed University of (varivax)(chicken 00:00:00 [facility] edical pox) Branch MMR 2003-05-24 Completed University of 00:00:00 [facility] DTAP 2003-05-24 Completed University of 00:00:00 [facility] MMR 2003-05-24 Completed University of 00:00:00 [facility] Polio (IPV/OPV) 2003-05-24 Completed Universit y of 00:00:00 [facility] Varicella 2003-05-24 Completed University of (varivax)(chicken 00:00:00 [facility] edical pox) Branch Polio (IPV/OPV) 2003-05-24 Completed Universit y of 00:00:00 [facility] Varicella 2003-05-24 Completed University of (varivax)(chicken 00:00:00 [place] M edical pox) Branch DTAP 2003-05-24 Completed University of 00:00:00 [facility] MMR 2003-05-24 Completed University of 00:00:00 [facility] Polio (IPV/OPV) 2003-05-24 Completed Universit y of 00:00:00 [facility] Varicella 2003-05-24 Completed University of (varivax)(chicken 00:00:00 [facility] edical pox) Branch DTAP 2003-05-24 Completed University of 00:00:00 [facility] HIB 4 Dose Schedule 2001-01-22 Completed Unive rsity of 00:00:00 [facility] Pneumococcal 13 2001-01-22 Completed Universit y of Conjugate, PCV13 00:00:00 [place] Me dical (Prevnar 13) Branch HIB 4 Dose Schedule 2001-01-22 Completed Unive rsity of 00:00:00 [place] [facility] Pneumococcal 13 2001-01-22 Completed Universit y of Conjugate, PCV13 00:00:00 [place] Me dical (Prevnar 13) Branch HIB 4 Dose Schedule 2001-01-22 Completed Unive rsity of 00:00:00 [facility] Pneumococcal 13 2001-01-22 Completed Universit y of Conjugate, PCV13 00:00:00 [place] Me dical (Prevnar 13) Branch HIB 4 Dose Schedule 2001-01-22 Completed Unive rsity of 00:00:00 [facility] Pneumococcal 13 2001-01-22 Completed Universit y of Conjugate, PCV13 00:00:00 [place] Me dical (Prevnar 13) Branch HIB 4 Dose Schedule 2001-01-22 Completed Unive rsity of 00:00:00 [facility] HIB 4 Dose Schedule 2001-01-22 Completed Unive rsity of 00:00:00 [facility] Pneumococcal 13 2001-01-22 Completed Universit y of Conjugate, PCV13 00:00:00 [place] Me dical (Prevnar 13) Branch HIB 4 Dose Schedule 2001-01-22 Completed Unive rsity of 00:00:00 [facility] Pneumococcal 13 2001-01-22 Completed Universit y of Conjugate, PCV13 00:00:00 [place] Me dical (Prevnar 13) Branch HIB 4 Dose Schedule 2001-01-22 Completed Unive rsity of 00:00:00 [facility] Pneumococcal 13 2001-01-22 Completed Universit y of Conjugate, PCV13 00:00:00 [place] Me dical (Prevnar 13) Branch Pneumococcal 13 2001-01-22 Completed Universit y of Conjugate, PCV13 00:00:00 [place] Me dical (Prevnar 13) Branch HIB 4 Dose Schedule 2001-01-22 Completed Unive rsity of 00:00:00 [facility] Pneumococcal 13 2001-01-22 Completed Universit y of Conjugate, PCV13 00:00:00 [place] Me dical (Prevnar 13) Branch Polio (IPV/OPV) 2000-11-27 Completed Universit y of 00:00:00 [facility] DTAP 2000-11-27 Completed University of 00:00:00 [facility] Polio (IPV/OPV) 2000-11-27 Completed Universit y of 00:00:00 [place] [facility] DTAP 2000-11-27 Completed University of 00:00:00 [place] [facility] Polio (IPV/OPV) 2000-11-27 Completed Universit y of 00:00:00 [place] [facility] DTAP 2000-11-27 Completed University of 00:00:00 [place] [facility] DTAP 2000-11-27 Completed University of 00:00:00 [place] [facility] Polio (IPV/OPV) 2000-11-27 Completed Universit y of 00:00:00 [place] [facility] DTAP 2000-11-27 Completed University of 00:00:00 [place] [facility] Polio (IPV/OPV) 2000-11-27 Completed Universit y of 00:00:00 [place] [facility] DTAP 2000-11-27 Completed University of 00:00:00 [place] [facility] Polio (IPV/OPV) 2000-11-27 Completed Universit y of 00:00:00 [place] [facility] DTAP 2000-11-27 Completed University of 00:00:00 [place] [facility] Polio (IPV/OPV) 2000-11-27 Completed Universit y of 00:00:00 [place] [facility] Polio (IPV/OPV) 2000-11-27 Completed Universit y of 00:00:00 [place] [facility] DTAP 2000-11-27 Completed University of 00:00:00 [place] [facility] Polio (IPV/OPV) 2000-11-27 Completed Universit y of 00:00:00 [facility] DTAP 2000-11-27 Completed University of 00:00:00 [place] [facility] MMR 2000-08-20 Completed University of 00:00:00 [place] [facility] MMR 2000-08-20 Completed University of 00:00:00 [place] [facility] MMR 2000-08-20 Completed University of 00:00:00 [place] [facility] MMR 2000-08-20 Completed University of 00:00:00 [place] [facility] MMR 2000-08-20 Completed University of 00:00:00 [place] [facility] MMR 2000-08-20 Completed University of 00:00:00 [place] [facility] MMR 2000-08-20 Completed University of 00:00:00 [place] [facility] MMR 2000-08-20 Completed University of 00:00:00 [place] [facility] MMR 2000-08-20 Completed University of 00:00:00 [place] [facility] HIB 4 Dose Schedule 2000-06-03 Completed Unive rsity of 00:00:00 [facility] Hep B, Adol or Pedi 2000-06-03 Completed Unive rsity of Dosage 00:00:00 [facility] Pneumococcal 13 2000-06-03 Completed Universit y of Conjugate, PCV13 00:00:00 [place] Me [facility]ical (Prevnar 13) Branch HIB 4 Dose Schedule 2000-06-03 Completed Unive rsity of 00:00:00 [facility] Hep B, Adol or Pedi 2000-06-03 Completed Unive rsity of Dosage 00:00:00 [facility] Pneumococcal 13 2000-06-03 Completed Universit y of Conjugate, PCV13 00:00:00 [place] Me [facility]ical (Prevnar 13) Branch HIB 4 Dose Schedule 2000-06-03 Completed Unive rsity of 00:00:00 [facility] Hep B, Adol or Pedi 2000-06-03 Completed Unive rsity of Dosage 00:00:00 [facility] Pneumococcal 13 2000-06-03 Completed Universit y of Conjugate, PCV13 00:00:00 [place] Me [facility]ical (Prevnar 13) Branch HIB 4 Dose Schedule 2000-06-03 Completed Unive rsity of 00:00:00 [facility] Hep B, Adol or Pedi 2000-06-03 Completed Unive rsity of Dosage 00:00:00 [facility] Pneumococcal 13 2000-06-03 Completed Universit y of Conjugate, PCV13 00:00:00 [place] Me [facility]ical (Prevnar 13) Branch HIB 4 Dose Schedule 2000-06-03 Completed Unive rsity of 00:00:00 [facility] HIB 4 Dose Schedule 2000-06-03 Completed Unive rsity of 00:00:00 [facility] Hep B, Adol or Pedi 2000-06-03 Completed Unive rsity of Dosage 00:00:00 [facility] Pneumococcal 13 2000-06-03 Completed Universit y of Conjugate, PCV13 00:00:00 [place] Me [facility]ical (Prevnar 13) Branch HIB 4 Dose Schedule 2000-06-03 Completed Unive rsity of 00:00:00 [facility] Hep B, Adol or Pedi 2000-06-03 Completed Unive rsity of Dosage 00:00:00 [facility] Hep B, Adol or Pedi 2000-06-03 Completed Unive rsity of Dosage 00:00:00 [facility] Pneumococcal 13 2000-06-03 Completed Universit y of Conjugate, PCV13 00:00:00 [place] [facility] (Prevnar 13) Branch HIB 4 Dose Schedule 2000-06-03 Completed Unive rsity of 00:00:00 [facility] Hep B, Adol or Pedi 2000-06-03 Completed Unive rsity of Dosage 00:00:00 [facility] Pneumococcal 13 2000-06-03 Completed Universit y of Conjugate, PCV13 00:00:00 [place] Me [facility]ical (Prevnar 13) Branch Pneumococcal 13 2000-06-03 Completed Universit y of Conjugate, PCV13 00:00:00 [place] [facility] (Prevnar 13) Branch HIB 4 Dose Schedule 2000-06-03 Completed Unive rsity of 00:00:00 [facility] Hep B, Adol or Pedi 2000-06-03 Completed Unive rsity of Dosage 00:00:00 [facility] Pneumococcal 13 2000-06-03 Completed Universit y of Conjugate, PCV13 00:00:00 [place] Me [facility]ical (Prevnar 13) Branch Pneumococcal 13 2000-03-11 Completed Universit y of Conjugate, PCV13 00:00:00 [place] [facility] (Prevnar 13) Branch Pneumococcal 13 2000-03-11 Completed Universit y of Conjugate, PCV13 00:00:00 [place] [facility] (Prevnar 13) Branch Pneumococcal 13 2000-03-11 Completed Universit y of Conjugate, PCV13 00:00:00 [place] [facility] (Prevnar 13) Branch Pneumococcal 13 2000-03-11 Completed Universit y of Conjugate, PCV13 00:00:00 [place] [facility] (Prevnar 13) Branch Pneumococcal 13 2000-03-11 Completed Universit y of Conjugate, PCV13 00:00:00 [place] [facility] (Prevnar 13) Branch Pneumococcal 13 2000-03-11 Completed Universit y of Conjugate, PCV13 00:00:00 [place] [facility] (Prevnar 13) Branch Pneumococcal 13 2000-03-11 Completed Universit y of Conjugate, PCV13 00:00:00 [place] [facility] (Prevnar 13) Branch Pneumococcal 13 2000-03-11 Completed Universit y of Conjugate, PCV13 00:00:00 [place] [facility] (Prevnar 13) Branch Pneumococcal 13 2000-03-11 Completed Universit y of Conjugate, PCV13 00:00:00 [place] [facility] (Prevnar 13) Branch Pneumococcal 13 1999 Completed Universit y of Conjugate, PCV13 00:00:00 [facility] dical (Prevnar 13) Branch DTAP 1999 Completed University of 00:00:00 [facility] Pneumococcal 13 1999 Completed Universit y of Conjugate, PCV13 00:00:00 [facility] dical (Prevnar 13) Branch DTAP 1999 Completed University of 00:00:00 [facility] Pneumococcal 13 1999 Completed Universit y of Conjugate, PCV13 00:00:00 [facility] dical (Prevnar 13) Branch DTAP 1999 Completed University of 00:00:00 [facility] DTAP 1999 Completed University of 00:00:00 [facility] Pneumococcal 13 1999 Completed Universit y of Conjugate, PCV13 00:00:00 [facility] dical (Prevnar 13) Branch DTAP 1999 Completed University of 00:00:00 [facility] Pneumococcal 13 1999 Completed Universit y of Conjugate, PCV13 00:00:00 [facility] dical (Prevnar 13) Branch DTAP 1999 Completed University of 00:00:00 [facility] Pneumococcal 13 1999 Completed Universit y of Conjugate, PCV13 00:00:00 [facility] dical (Prevnar 13) Branch DTAP 1999 Completed University of 00:00:00 [facility] Pneumococcal 13 1999 Completed Universit y of Conjugate, PCV13 00:00:00 [facility] dical (Prevnar 13) Branch Pneumococcal 13 1999 Completed Universit y of Conjugate, PCV13 00:00:00 [facility] dical (Prevnar 13) Branch DTAP 1999 Completed University of 00:00:00 [facility] Pneumococcal 13 1999 Completed Universit y of Conjugate, PCV13 00:00:00 [facility] dical (Prevnar 13) Branch DTAP 1999 Completed University of 00:00:00 [facility] HIB 4 Dose Schedule 1999 Completed Unive rsity of 00:00:00 [facility] Hep B, Adol or Pedi 1999 Completed Unive rsity of Dosage 00:00:00 [facility] Polio (IPV/OPV) 1999 Completed Universit y of 00:00:00 [facility] DTAP 1999 Completed University of 00:00:00 [facility] HIB 4 Dose Schedule 1999 Completed Unive rsity of 00:00:00 [facility] Hep B, Adol or Pedi 1999 Completed Unive rsity of Dosage 00:00:00 [facility] Polio (IPV/OPV) 1999 Completed Universit y of 00:00:00 [facility] DTAP 1999 Completed University of 00:00:00 [facility] HIB 4 Dose Schedule 1999 Completed Unive rsity of 00:00:00 [facility] Hep B, Adol or Pedi 1999 Completed Unive rsity of Dosage 00:00:00 [facility] DTAP 1999 Completed University of 00:00:00 [facility] Polio (IPV/OPV) 1999 Completed Universit y of 00:00:00 [facility] DTAP 1999 Completed University of 00:00:00 [facility] HIB 4 Dose Schedule 1999 Completed Unive rsity of 00:00:00 [facility] Hep B, Adol or Pedi 1999 Completed Unive rsity of Dosage 00:00:00 [facility] Polio (IPV/OPV) 1999 Completed Universit y of 00:00:00 [facility] HIB 4 Dose Schedule 1999 Completed Unive rsity of 00:00:00 [facility] DTAP 1999 Completed University of 00:00:00 [facility] HIB 4 Dose Schedule 1999 Completed Unive rsity of 00:00:00 [facility] Hep B, Adol or Pedi 1999 Completed Unive rsity of Dosage 00:00:00 [facility] Polio (IPV/OPV) 1999 Completed Universit y of 00:00:00 [facility] DTAP 1999 Completed University of 00:00:00 [facility] Hep B, Adol or Pedi 1999 Completed Unive rsity of Dosage 00:00:00 [facility] HIB 4 Dose Schedule 1999 Completed Unive rsity of 00:00:00 [facility] Hep B, Adol or Pedi 1999 Completed Unive rsity of Dosage 00:00:00 [facility] Polio (IPV/OPV) 1999 Completed Universit y of 00:00:00 [facility] DTAP 1999 Completed University of 00:00:00 [facility] HIB 4 Dose Schedule 1999 Completed Unive rsity of 00:00:00 [facility] Hep B, Adol or Pedi 1999 Completed Unive rsity of Dosage 00:00:00 [facility] Polio (IPV/OPV) 1999 Completed Universit y of 00:00:00 [facility] Polio (IPV/OPV) 1999 Completed Universit y of 00:00:00 [facility] DTAP 1999 Completed University of 00:00:00 [facility] HIB 4 Dose Schedule 1999 Completed Unive rsity of 00:00:00 [facility] Hep B, Adol or Pedi 1999 Completed Unive rsity of Dosage 00:00:00 [facility] Polio (IPV/OPV) 1999 Completed Universit y of 00:00:00 [facility] DTAP 1999 Completed University of 00:00:00 [facility] Hep B, Adol or Pedi 1999 Completed Unive rsity of Dosage 00:00:00 [facility] Polio (IPV/OPV) 1999 Completed Universit y of 00:00:00 [facility] DTAP 1999 Completed University of 00:00:00 [facility] HIB 4 Dose Schedule 1999 Completed Unive rsity of 00:00:00 [facility] Hep B, Adol or Pedi 1999 Completed Unive rsity of Dosage 00:00:00 [facility] Polio (IPV/OPV) 1999 Completed Universit y of 00:00:00 [facility] DTAP 1999 Completed University of 00:00:00 [facility] DTAP 1999 Completed University of 00:00:00 [facility] HIB 4 Dose Schedule 1999 Completed Unive rsity of 00:00:00 [facility] Hep B, Adol or Pedi 1999 Completed Unive rsity of Dosage 00:00:00 [facility] Polio (IPV/OPV) 1999 Completed Universit y of 00:00:00 [facility] DTAP 1999 Completed University of 00:00:00 [facility] HIB 4 Dose Schedule 1999 Completed Unive rsity of 00:00:00 [facility] Hep B, Adol or Pedi 1999 Completed Unive rsity of Dosage 00:00:00 [facility] HIB 4 Dose Schedule 1999 Completed Unive rsity of 00:00:00 [facility] Polio (IPV/OPV) 1999 Completed Universit y of 00:00:00 [facility] DTAP 1999 Completed University of 00:00:00 [facility] HIB 4 Dose Schedule 1999 Completed Unive rsity of 00:00:00 [facility] Hep B, Adol or Pedi 1999 Completed Unive rsity of Dosage 00:00:00 [facility] Polio (IPV/OPV) 1999 Completed Universit y of 00:00:00 [facility] Hep B, Adol or Pedi 1999 Completed Unive rsity of Dosage 00:00:00 [facility] DTAP 1999 Completed University of 00:00:00 [facility] HIB 4 Dose Schedule 1999 Completed Unive rsity of 00:00:00 [facility] Hep B, Adol or Pedi 1999 Completed Unive rsity of Dosage 00:00:00 [facility] Polio (IPV/OPV) 1999 Completed Universit y of 00:00:00 [facility] DTAP 1999 Completed University of 00:00:00 [facility] HIB 4 Dose Schedule 1999 Completed Unive rsity of 00:00:00 [facility] Hep B, Adol or Pedi 1999 Completed Unive rsity of Dosage 00:00:00 [facility] Polio (IPV/OPV) 1999 Completed Universit y of 00:00:00 [facility] Polio (IPV/OPV) 1999 Completed Universit y of 00:00:00 [facility] DTAP 1999 Completed University of 00:00:00 [facility] HIB 4 Dose Schedule 1999 Completed Unive rsity of 00:00:00 [facility] Hep B, Adol or Pedi 1999 Completed Unive rsity of Dosage 00:00:00 [facility] Polio (IPV/OPV) 1999 Completed Universit y of 00:00:00 [facility] DTAP 1999 Completed University of 00:00:00 [facility] HIB 4 Dose Schedule 1999 Completed Unive rsity of 00:00:00 [facility] Vital Signs Vital Name Observation Time Observation Value Comments Source Body height 2019-06-09 13:56:00 154.9 cm Universi ty of [facility] Body weight 2019-06-09 13:56:00 61.236 kg Universi ty of [facility] BMI 2019-06-09 13:56:00 25.51 kg/m2 Universi ty of [facility] Body height 2019-06-09 13:56:00 154.9 cm Universi ty of [facility] Body weight 2019-06-09 13:56:00 61.236 kg Universi ty of [facility] BMI 2019-06-09 13:56:00 25.51 kg/m2 Universi ty of [facility] Systolic blood 2019-05-03 15:48:00 118 mm[Hg] Univer sity of pressure [facility] Diastolic blood 2019-05-03 15:48:00 76 mm[Hg] Unive rsity of pressure [facility] Heart rate 2019-05-03 15:48:00 68 /min Universi ty of [facility] Body temperature 2019-05-03 15:48:00 36.83 Shelley Univ ersity of [facility] Respiratory rate 2019-05-03 15:48:00 16 /min Univ ersity of [facility] Body weight 2019-05-03 15:48:00 61.236 kg Universi ty of [facility] Systolic blood 2019-05-03 15:48:00 118 mm[Hg] Univer sity of pressure [facility] Diastolic blood 2019-05-03 15:48:00 76 mm[Hg] Unive rsity of pressure [facility] Heart rate 2019-05-03 15:48:00 68 /min [facility] Body temperature 2019-05-03 15:48:00 36.83 [facility] [place] [place] Respiratory rate 2019-05-03 15:48:00 16 /min [facility] Body weight 2019-05-03 15:48:00 61.236 kg [facility] Procedures Procedure Date / Time Performed Performing Clinician [facility] e ASSIGNMENT OF BENEFITS 2019-06-11 15:41:03 Doctor Unassigned, No [facility] Name [facility] GARDASIL 9 (HPV 9V) 2019-05-03 16:26:[address] [facility] Encounters Start End Encounter Admission Attending Care Care Encounter Source Date/Time Date/Time Type Type Clinicians Facility Department ID 2020-01-02 2020-01-02 Outpatient Yu GONZÁLES [facility] [id number] Univers 10:00:00 10:00:[address] [facility] [place] [place] 2020-01-02 2020-01-02 Outpatient R JOLYNN [facility] [id number] Univers 10:00:00 10:00:[address] [facility] [place] [place] 2019-12-28 2019-12-28 Outpatient R JOLYNN [facility] [id number] Univers 13:45:00 13:45:[address] [facility] [place] [place] 2019-12-28 2019-12-28 Outpatient R JOLYNN [facility] [id number] Univers 13:45:00 13:45:[address] [facility] [place] [place] 2019-12-07 2019-12-07 Outpatient R JOLYNN [facility] [id number] Univers 13:00:00 13:00:[address] [facility] [place] [place] 2019-06-13 2019-06-13 Outpatient R [facility] [id number] Univers 14:00:00 14:00:[facility] [id number] [facility] 2019-06-13 Outpatient R [facility] [id number] Univers 14:00:00 [facility]-13 2019-06-13 Telephone Pcp, [facility] [id number] 00:00:00 00:00:00 Patient [place] [id number] Does Not [place] [id number] Have A Professio [phone] [address] 2019-06-13 2019-06-13 Case Andreia James [facility] [id number] 00:00:00 00:00:00 Management Cam [place] [id number] [place] [id number] Professio [phone] [address] 2019-06-13 2019-06-13 Telephone Pcp, [facility] [id number] Univers 00:00:00 00:00:00 Patient [place] [id number] i ty of Does Not [place] [id number] Alberto as Have A Professio [phone] Ma dical [address] 2019-06-13 2019-06-13 Case Andreia James [facility] [id number] Univers 00:00:00 00:00:00 Management Cam [place] [id number] [place]y [id number] [phone] [place] dical [address] 2019-06-11 2019-06-11 Outpatient R [facility] [id number] Univers 11:30:00 11:30:00 [id number] ity [facility] 2019-06-11 2019-06-11 Outpatient R [facility] [id number] Univers 11:30:00 11:30:00 ity [facility] 2019-06-11 2019-06-11 Director Of Home Care Hospice Bhavna Narayanan [facility] [id number] 10:45:08 11:00:08 Visit Lab Main [place] [id number] [place] [id number] Professio [phone] [address] 2019-06-11 2019-06-11 Director Of Home Care Hospice Bhavna Narayanan Lab Main [facility] [id number] Univers 10:45:08 11:00:08 Visit Andreia [place] [id number] ity [id number] [phone] Ma dic[address] 2019-06-11 2019-06-11 Orders Doctor JENNIFER [id number] 00:00:00 00:00:00 Only Unassigned, EDMUNDO [id number] [facility] [phone] [facility] 2019-06-11 2019-06-11 Orders Doctor JENNIFER [id number] Univers 00:00:00 00:00:00 Only Unassigned, EDMUNDO [id number] ity of [facility] [id number] Alberto as [phone] [address] 2019-06-09 2019-06-09 Director Of Home Care Hospice 2, Adc Lab [facility] [id number] 13:04:36 13:19:36 Visit [place] [id number] [place] [id number] Professio [phone] [address] 2019-06-09 2019-06-09 Director Of Home Care Hospice 2, Adc Lab [facility] [id number] [facility] 13:04:36 13:19:36 Visit Andreia [place] [id number] ity [id number] [phone] Ma dic[address] 2019-06-09 2019-06-09 Telemedici Andreia James [facility] [id number] 08:07:08 10:52:20 ne Visit Donnell [place] [id number] [place] [id number] Professio [phone] [address] 2019-06-09 2019-06-09 Telemedici Andreia James [facility] [id number] [facility] 08:07:08 10:52:20 ne Visit Donnell [place] [id number] ity of [place] [id number] [phone] [address] 2019-06-09 2019-06-09 Outpatient R ANDREIA JAMES [facility] [id number] Univers 10:00:00 10:00:[id number] [facility] [place] [place] 2019-06-09 2019-06-09 Outpatient R ANDREIA JAMES [facility] [id number] Univers 10:00:00 10:00:[address] [facility] [place] [place] 2019-05-31 2019-05-31 Telephone Nurse, [facility] [id number] 00:00:00 00:00:00 [facility] [place] [id number] Health [place] [id number] Professio [phone] [address] 2019-05-31 2019-05-31 Telephone Nurse, [facility] [id number] [facility] 00:00:00 00:00:00 [facility] [place] [id number] i ty of [facility] [id number] [phone] [address] 2019-05-03 2019-05-03 [facility] [id number] [facility] 10:44:19 11:28:14 Visit Nano [place] [id number] i ty [place] [id number] [phone] [address] 2019-05-03 2019-05-03 [facility] [id number] 10:44:19 11:28:14 Visit [facility] [id number] [place] [id number] Professio [phone] [address] 2019-05-03 2019-05-03 Outpatient R JOLYNN [facility] [id number] Univers 10:45:00 10:45:[id number] [facility] [place] [place] 2019-05-03 2019-05-03 Outpatient R JOLYNN [facility] [id number] Univers 10:45:00 10:45:[address] [facility] [place] [place] 2019-01-18 2019-01-18 Outpatient R ANDREIA JAMES [facility] [id number] Univers 15:00:00 15:29:[address] [facility] [place] [place] 2018-12-06 2018-12-06 Outpatient R JOLYNN [facility] [id number] Univers 10:30:00 12:05:[address] [facility] [place] [place] Results This patient has no known results.
[2021-10-01 09:33] LABS: Urine Blood 1+ (Negative); Urine Glucose Negative (Negative); Urine Protein Negative (Negative); Urine Specific Gravity 1.025 (1.005-1.030)
[2021-10-01 09:48] LABS: Absolute Lymphocytes (CBC) 1.8 K/uL (0.7-4.9); Hematocrit 41.4 % (36.0-45.0); Lymphocytes % 23.8 % (15.3-44.8); MCV 85.6 fL (80-100); MPV 7.8 fL (7.6-11.3); RBC Red Blood Cell Count 4.83 M/uL (3.86-4.86)
[2021-10-01] MEDS ORDERED: ONDANSETRON 4 MG/2 ML VIAL ONE (10:10)
[2021-10-01] MEDS ORDERED: CEFTRIAXONE 1000 MG/VIAL ONE (10:10)
[2021-10-01] MEDS ORDERED: MORPHINE 2 MG/ML SYR ONE (10:10)
[2021-10-01] MEDS ORDERED: NA CHLORIDE 0.9% 1,000 ML ONE (10:10)
[2021-10-01 10:12] LABS: Bilirubin Direct 0.1 mg/dL (0-0.2); Bilirubin Total 0.5 mg/dL (0.2-1.0); Potassium 3.6 mmol/L (3.5-5.1); Protein, Total 7.6 g/dL (6.4-8.2)
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
[2021-10-01 10:25] LABS: Urine Specific Gravity/Preg 1.025 (1.005-1.030)
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
[2021-10-01 12:50] VITALS: BP 118/76; TEMP 97.9; O2SAT 99
== END 2021-10-01 12:04 | disposition home or self-care (01) ==
LOC: ER 08:50
DX: S00.83XA Contusion of other part of head, initial encounter (principal); N39.0 Urinary tract infection, site not specified; V47.5XXA Car driver injured in collision with fixed or stationary object in traffic accident, initial encounter
CPT/HCPCS: 85025; 80048; 36415; 86900; 86850; 81025; 86901; 80076; 81003; 83690; 70450; 72125; 71260; 70486; 76377; 74177; Q9967; J2270; J7030; J2405; 96361; 96365; 96375; 99284

== ENCOUNTER 2022-02-21 15:41 | Emergency (ER) | payer OTHER ==
--- OUTSIDE RECORDS SUMMARY | 2022-02-21 15:45 | XMS REPORT | Continuity of Care Document ---
:2000 Author Organization [facility] t Address [address] [place] [address] Care Team Providers Name Role Phone NANO GONZÁLES Attending Clinician Unavailable Pcp, Patient Does Not Have A Attending Clinician [phone] Andreia James MD Attending Clinician Pob, [facility] Attending Clinician Unavailable Doctor Unassigned, [place] Attending Clinician Unavailable 2, [facility] Attending Clinician Unavailable ANDREIA JAMES Attending Clinician Unavailable Nurse, [facility] Attending Clinician Unavailable Nano Gonzáles PA-C Attending Clinician Payers Payer Name Policy Type Policy Number Effective Date Expiration Date S itzel [employer] CHOICE POS [id number] 2018 00:00:00 II Problems Condition Condition Condition Status Onset Resolution Last Treating Co mments Source Name Details Category Date Date Treatment Clinician Date Pelvic Pelvic Disease Active [facility] cramping cramping 4-16 ity of in in 00:00: [place] antepartum antepartum 00 Me dical period period [...] tract tract 00:00: [place] infection infection 00 [facility] Branch Oral Oral Disease Active [place] [facility] y of leslie use leslie use 00:00: [place] 00 Medical [place] Allergies, Adverse Reactions, Alerts Allergy Allergy Status [...] Stop Date Quantity Comments Source ASSERTION 2019-05-15 [facility] 00:00:00 [facility] Sex Assigned At Universit y of [facility] Alcohol intake 2019-06-09 2019-06-09 [facility] 00:00:00 00:00:00 [facility] Alcohol Comment 2018-12-06 2018-12-06 every thursday [facility] 00:[facility] 00:00:00 [facility] Smoking Status Start Date Stop Date Source Never smoker [facility] Medications Ordered Filled Start Stop Current Ordering Indication Dosage Frequency Signature Comments Components Source Medication Medication Date Date Medication? Clinician (SIG) Name Name 2020- No Take by Unive rs vits62/FA/o 4-16 04-16 mouth. ity o f m3/dha/epa 21:12: 00:00 [place] ( 59 :00 Medical GUMMY ORAL) Branch Yes Take by Univer s vits62/FA/o 4-16 mouth. ity of m3/dha/epa 14:00: [place] ( 08 Medical GUMMY ORAL) Branch 2020-0 Yes Take by Univer s vit 4-16 mouth. ity of calc,iron,f 14:00: [place] [address] Medical ( Branch VITAMIN ORAL) 2020-0 Yes Take by Univer s vit 4-16 mouth. ity of calc,iron,f 14:[facility]: [facility]) 2020-0 Yes Take by Univer s vit 4-16 mouth. ity of calc,iron,f 14:00: [place] [address] Medical ( Branch VITAMIN ORAL) 2020-0 Yes Take by Univer s vit 4-16 mouth. ity of calc,iron,f 14:00: [address] ( Branch VITAMIN ORAL) Yes Take by [facility] vit 4-16 mouth. ity of calc,iron,f 14:00: [address] ( Branch VITAMIN ORAL) Yes Take by [facility] vit 4-16 mouth. ity of calc,iron,f 14:00: [address] ( Branch VITAMIN ORAL) albuterol Yes [id number] 2{puff} Inhale 2 Univers 90 4-16 Puffs ity of mcg/actuati 00:00: every 6 Alberto as on inhaler 00 (six) Medical hours as Branch needed for Wheezing, Shortness of Breath, Bronchospa sm or Chest tightness. albuterol Yes [id number] 2{puff} Inhale 2 Univers 90 4-16 Puffs ity of mcg/actuati 00:00: every 6 [place] as on inhaler 00 (six) Medical hours as Branch needed for Wheezing, Shortness of Breath, Bronchospa sm or Chest tightness. albuterol Yes [id number] 2{puff} Inhale 2 Univers 90 4-16 Puffs ity of mcg/actuati 00:00: every 6 [place] as on inhaler 00 (six) Medical hours as Branch needed for Wheezing, Shortness of Breath, Bronchospa sm or Chest tightness. albuterol Yes [id number] 2{puff} Inhale 2 Univers 90 4-16 Puffs ity of mcg/actuati 00:00: every 6 [place] as on inhaler 00 (six) Medical hours as Branch needed for Wheezing, Shortness of Breath, Bronchospa sm or Chest tightness. albuterol Yes [id number] 2{puff} Inhale 2 Univers 90 4-16 Puffs [...] 30 min ity of tablet 00:00: before [place] azithromyc Medical in dose Branch proMETHazin 2018-02 [...] 30 min ity of tablet 00:00: before [place] azithromyc Medical in dose Branch proMETHazin 2018-02 Yes 1 tablet Un rashmi e 25 mg 0-16 po 30 min ity of tablet 00:00: before [place] azithromyc Medical in dose Branch proMETHazin 2018-02 Yes 1 tablet Un rashmi e 25 mg 0-16 po 30 min ity of tablet 00:00: before azithromyc Medical in dose Branch proMETHazin 2018-02 Yes 1 tablet Un rashmi e 25 mg 0-16 po 30 min ity of tablet 00:00: before [place] azithromyc Medical in dose Branch norgestimat Yes [id number] 1{tbl} Take 1 Univers e-ethinyl 8-24 tablet by ity o f estradiol 00:00: mouth [place] (TRINESSA 00 daily. Medical LO) Branch 0.18/0.215/ 0.25 mg-25 mcg tablet norgestimat 2017- Yes [id number] 1{tbl} Take 1 Univers e-ethinyl 8-24 tablet by ity o f estradiol 00:00: mouth [place] (TRINESSA 00 daily. Medical LO) Branch 0.18/0.215/ 0.25 mg-25 mcg tablet norgestimat 2017- Yes [id number] 1{tbl} Take 1 Univers e-ethinyl 8-24 tablet by ity o f estradiol 00:00: mouth [place] (TRINESSA 00 daily. Medical LO) Branch 0.18/0.215/ 0.25 mg-25 mcg tablet norgestimat 2017- Yes [id number] 1{tbl} Take 1 Univers e-ethinyl 8-24 tablet by ity o f estradiol 00:00: mouth [place] (TRINESSA 00 daily. Medical LO) Branch 0.18/0.215/ 0.25 mg-25 mcg tablet norgestimat 2020- No [id number] 1{tbl} Take 1 Univers e-ethinyl 8-24 04-16 tablet by ity of estradiol 00:00: 00:00 mouth [place] (TRINESSA 00 :00 daily. Medical LO) Branch 0.18/0.215/ 0.25 mg-25 mcg tablet Immunizations Ordered Immunization Filled Immunization Date Status Commen ts Source Name Name HPV9 2019-05-03 Completed University of 00:00:00 [facility] HPV9 2019-05-03 Completed University of 00:00:00 [facility] HPV9 2019-05-03 Completed University of 00:00:00 [facility] HPV9 2019-05-03 Completed University of 00:00:00 [facility] HPV9 2019-05-03 Completed University of 00:00:00 [facility] HPV9 2019-05-03 Completed University of 00:00:00 [facility] HPV9 2019-05-03 Completed University of 00:00:00 [facility] HPV9 2019-05-03 Completed University of 00:00:00 [facility] HPV9 2019-05-03 Completed University of 00:00:00 [facility] HPV9 2018-12-06 Completed University of 00:00:00 [facility] HPV9 2018-12-06 Completed University of 00:00:00 [facility] HPV9 2018-12-06 Completed University of 00:00:00 [facility] HPV9 2018-12-06 Completed University of 00:00:00 [facility] HPV9 2018-12-06 Completed University of 00:00:00 [facility] HPV9 2018-12-06 Completed University of 00:00:00 [facility] HPV9 2018-12-06 Completed University of 00:00:00 [facility] HPV9 2018-12-06 Completed University of 00:00:00 [facility] HPV9 2018-12-06 Completed University of 00:00:00 [facility] HPV9 2015-09-19 Completed University of 00:00:00 [facility] Branch HPV9 2015-09-19 Completed University of 00:00:00 [place] [facility] HPV9 2015-09-19 Completed University of 00:00:00 [place] [facility] HPV9 2015-09-19 Completed University of 00:00:[address] [facility] HPV9 2015-09-19 Completed University of 00:00:00 [place] [facility] HPV9 2015-09-19 Completed University of 00:00:00 [place] [facility] HPV9 2015-09-19 Completed University of 00:00:00 [place] [facility] HPV9 2015-09-19 Completed University of 00:00:[address] [facility] HPV9 2015-09-19 Completed University of 00:00:00 [facility] Meningococcal 2011-07-16 Completed University of Polysaccharide 00:00:00 [place] [facility]i andreina (groups A, C, Y and Branc h W-135) conjugate vaccine (MCV4P) TDAP (ADACEL) VACCINE 2011-07-16 Completed Uni versity of 00:00:00 [facility] Meningococcal 2011-07-16 Completed University of Polysaccharide 00:00:00 [place] Medi andreina (groups A, C, Y and Branc h W-135) conjugate vaccine (MCV4P) TDAP (ADACEL) VACCINE 2011-07-16 Completed Uni versity of 00:00:00 [facility] TDAP (ADACEL) VACCINE 2011-07-16 Completed Uni versity of 00:00:00 [facility] Meningococcal 2011-07-16 Completed University of Polysaccharide 00:00:00 [place] Medi andreina (groups A, C, Y and Branc h W-135) conjugate vaccine (MCV4P) TDAP (ADACEL) VACCINE 2011-07-16 Completed Uni versity of 00:00:00 [facility] Meningococcal 2011-07-16 Completed University of Polysaccharide 00:00:00 [place] Medi andreina (groups A, C, Y and Branc h W-135) conjugate vaccine (MCV4P) TDAP (ADACEL) VACCINE 2011-07-16 Completed Uni versity of 00:00:00 [facility] Meningococcal 2011-07-16 Completed University of Polysaccharide 00:00:00 [place] Medi andreina (groups A, C, Y and Branc h W-135) conjugate vaccine (MCV4P) TDAP (ADACEL) VACCINE 2011-07-16 Completed Uni versity of 00:00:00 [facility] Meningococcal 2011-07-16 Completed University of Polysaccharide 00:00:00 [place] Medi andreina (groups A, C, Y and Branc h W-135) conjugate vaccine (MCV4P) Meningococcal 2011-07-16 Completed University of Polysaccharide 00:00:00 [place] Medi andreina (groups A, C, Y and Branc h W-135) conjugate vaccine (MCV4P) TDAP (ADACEL) VACCINE 2011-07-16 Completed Uni versity of 00:00:00 [facility] Meningococcal 2011-07-16 Completed University of Polysaccharide 00:00:00 [place] Medi andreina (groups A, C, Y and Branc h W-135) conjugate vaccine (MCV4P) TDAP (ADACEL) VACCINE 2011-07-16 Completed Uni versity of 00:00:00 [facility] Meningococcal 2011-07-16 Completed University of Polysaccharide 00:00:00 [place] Medi andreina (groups A, C, Y and Branc h W-135) conjugate vaccine (MCV4P) TDAP (ADACEL) VACCINE 2011-07-16 Completed Uni versity of 00:00:00 [facility] HEPATITIS A 2008-08-16 Completed University of 00:00:00 [facility] Varicella 2008-08-16 Completed University of (varivax)(chicken 00:00:00 [place] M edical pox) Branch HEPATITIS A 2008-08-16 Completed University of 00:00:00 [facility] Varicella 2008-08-16 Completed University of (varivax)(chicken 00:00:00 [place] M edical pox) Branch HEPATITIS A 2008-08-16 Completed University of 00:00:00 [facility] Varicella 2008-08-16 Completed University of (varivax)(chicken 00:00:00 [place] M [facility]ical pox) Branch HEPATITIS A 2008-08-16 Completed University of 00:00:00 [facility] Varicella 2008-08-16 Completed University of (varivax)(chicken 00:00:00 [place] M edical pox) Branch HEPATITIS A 2008-08-16 Completed University of 00:00:00 [facility] HEPATITIS A 2008-08-16 Completed University of 00:00:00 [facility] Varicella 2008-08-16 Completed University of (varivax)(chicken 00:00:00 [place] M [facility]ical pox) Branch HEPATITIS A 2008-08-16 Completed University of 00:00:00 [facility] Varicella 2008-08-16 Completed University of (varivax)(chicken 00:00:00 [place] M [facility]ical pox) Branch HEPATITIS A 2008-08-16 Completed University of 00:00:00 [facility] Varicella 2008-08-16 Completed University of (varivax)(chicken 00:00:00 [place] M [facility]ical pox) Branch Varicella 2008-08-16 Completed University of (varivax)(chicken 00:00:00 [place] M [facility]ical pox) Branch HEPATITIS A 2008-08-16 Completed University of 00:00:00 [facility] Varicella 2008-08-16 Completed University of (varivax)(chicken 00:00:00 [place] M edical pox) Branch MMR 2003-05-24 Completed University of 00:00:00 [facility] Polio (IPV/OPV) 2003-05-24 Completed Universit y of 00:00:00 [facility] Varicella 2003-05-24 Completed University of (varivax)(chicken 00:00:00 [place] M edical pox) Branch DTAP 2003-05-24 Completed University of 00:00:00 [facility] MMR 2003-05-24 Completed University of 00:00:00 [facility] Polio (IPV/OPV) 2003-05-24 Completed Universit y of 00:00:00 [facility] Varicella 2003-05-24 Completed University of (varivax)(chicken 00:00:00 [place] M edical pox) Branch DTAP 2003-05-24 Completed University of 00:00:00 [facility] MMR 2003-05-24 Completed University of 00:00:00 [facility] Polio (IPV/OPV) 2003-05-24 Completed Universit y of 00:00:00 [facility] Varicella 2003-05-24 Completed University of (varivax)(chicken 00:00:00 [place] M edical pox) Branch DTAP 2003-05-24 Completed University of 00:00:00 [facility] DTAP 2003-05-24 Completed University of 00:00:00 [facility] MMR 2003-05-24 Completed University of 00:00:00 [facility] Polio (IPV/OPV) 2003-05-24 Completed Universit y of 00:00:00 [facility] Varicella 2003-05-24 Completed University of (varivax)(chicken 00:00:00 [place] M [facility]ical pox) Branch DTAP 2003-05-24 Completed University of 00:00:00 [facility] MMR 2003-05-24 Completed University of 00:00:00 [facility] Polio (IPV/OPV) 2003-05-24 Completed Universit y of 00:00:00 [facility] Varicella 2003-05-24 Completed University of (varivax)(chicken 00:00:00 [place] M edical pox) Branch DTAP 2003-05-24 Completed University of 00:00:00 [facility] MMR 2003-05-24 Completed University of 00:00:00 [facility] Polio (IPV/OPV) 2003-05-24 Completed Universit y of 00:00:00 [facility] Varicella 2003-05-24 Completed University of (varivax)(chicken 00:00:00 [facility] edical pox) Branch MMR 2003-05-24 Completed University of 00:00:00 [facility] DTAP 2003-05-24 Completed University of 00:00:00 [facility] MMR 2003-05-24 Completed University of 00:00:00 [facility] Polio (IPV/OPV) 2003-05-24 Completed Universit y of 00:00:00 [facility] Varicella 2003-05-24 Completed University of (varivax)(chicken 00:00:00 [facility] edical pox) Branch Polio (IPV/OPV) 2003-05-24 Completed Universit y of 00:00:00 [facility] Varicella 2003-05-24 Completed University of (varivax)(chicken 00:00:00 [place] M [facility]ical pox) Branch DTAP 2003-05-24 Completed University of 00:00:00 [facility] MMR 2003-05-24 Completed University of 00:00:00 [facility] Polio (IPV/OPV) 2003-05-24 Completed Universit y of 00:00:00 [facility] Varicella 2003-05-24 Completed University of (varivax)(chicken 00:00:00 [facility] edical pox) Branch DTAP 2003-05-24 Completed University of 00:00:00 [facility] HIB 4 Dose Schedule 2001-01-22 Completed Unive rsity of 00:00:00 [facility] Pneumococcal 13 2001-01-22 Completed Universit y of Conjugate, PCV13 00:00:00 [place] Me dical (Prevnar 13) Branch HIB 4 Dose Schedule 2001-01-22 Completed Unive rsity of 00:00:00 [place] [facility] Pneumococcal 13 2001-01-22 Completed Universit y of Conjugate, PCV13 00:00:00 [place] Me [facility]ical (Prevnar 13) Branch HIB 4 Dose Schedule 2001-01-22 Completed Unive rsity of 00:00:[address] [facility] Pneumococcal 13 2001-01-22 Completed Universit y of Conjugate, PCV13 00:00:00 [place] Me dical (Prevnar 13) Branch HIB 4 Dose Schedule 2001-01-22 Completed Unive rsity of 00:00:00 [facility] Pneumococcal 13 2001-01-22 Completed Universit y of Conjugate, PCV13 00:00:00 [place] Me dical (Prevnar 13) Branch HIB 4 Dose Schedule 2001-01-22 Completed Unive rsity of 00:00:00 [facility] HIB 4 Dose Schedule 2001-01-22 Completed Unive rsity of 00:00:00 [facility] Pneumococcal 13 2001-01-22 Completed Universit y of Conjugate, PCV13 00:00:00 [place] Me [facility]ical (Prevnar 13) Branch HIB 4 Dose Schedule 2001-01-22 Completed Unive rsity of 00:00:00 [facility] Pneumococcal 13 2001-01-22 Completed Universit y of Conjugate, PCV13 00:00:00 [place] Me dical (Prevnar 13) Branch HIB 4 Dose Schedule 2001-01-22 Completed Unive rsity of 00:00:00 [facility] Pneumococcal 13 2001-01-22 Completed Universit y of Conjugate, PCV13 00:00:00 [place] Me dical (Prevnar 13) Branch Pneumococcal 13 2001-01-22 Completed Universit y of Conjugate, PCV13 00:00:00 [place] Me [facility]ical (Prevnar 13) Branch HIB 4 Dose Schedule 2001-01-22 Completed Unive rsity of 00:00:00 [facility] Pneumococcal 13 2001-01-22 Completed Universit y of Conjugate, PCV13 00:00:00 [place] Me dical (Prevnar 13) Branch Polio (IPV/OPV) 2000-11-27 Completed Universit y of 00:00:00 [facility] DTAP 2000-11-27 Completed University of 00:00:00 [facility] Polio (IPV/OPV) 2000-11-27 Completed Universit y of 00:00:00 [place] [facility] DTAP 2000-11-27 Completed University of 00:00:00 [place] [facility] Polio (IPV/OPV) 2000-11-27 Completed Universit y of 00:00:00 [place] [facility] DTAP 2000-11-27 Completed University of 00:00:00 [place] [facility] DTAP 2000-11-27 Completed University of 00:00:00 [place] [facility] Polio (IPV/OPV) 2000-11-27 Completed Universit y of 00:00:00 [place] [facility] DTAP 2000-11-27 Completed University of 00:00:00 [place] [facility] Polio (IPV/OPV) 2000-11-27 Completed Universit y of 00:00:00 [place] [facility] DTAP 2000-11-27 Completed University of 00:00:00 [place] [facility] Polio (IPV/OPV) 2000-11-27 Completed Universit y of 00:00:00 [place] [facility] DTAP 2000-11-27 Completed University of 00:00:00 [place] [facility] Polio (IPV/OPV) 2000-11-27 Completed Universit y of 00:00:00 [place] [facility] Polio (IPV/OPV) 2000-11-27 Completed Universit y of 00:00:00 [place] [facility] DTAP 2000-11-27 Completed University of 00:00:00 [place] [facility] Polio (IPV/OPV) 2000-11-27 Completed Universit y of 00:00:00 [facility] DTAP 2000-11-27 Completed University of 00:00:00 [place] [facility] MMR 2000-08-20 Completed University of [...] Branch MMR 2000-08-20 Completed University of 00:00:00 [place] [facility] HIB 4 Dose Schedule 2000-06-03 Completed Unive rsity of 00:00:00 [facility] Hep B, Adol or Pedi 2000-06-03 Completed Unive rsity of Dosage 00:00:00 [facility] Pneumococcal 13 2000-06-03 Completed Universit y of Conjugate, PCV13 00:00:00 [place] Me [facility]ical (Prevnar 13) Branch HIB 4 Dose Schedule 2000-06-03 Completed Unive rsity of 00:00:00 [facility] Hep B, Adol or Pedi 2000-06-03 Completed Unive rsity of Dosage 00:00:00 [facility] Pneumococcal 13 2000-06-03 Completed Universit y of Conjugate, PCV13 00:00:00 [place] [facility]ical (Prevnar 13) Branch HIB 4 Dose Schedule 2000-06-03 Completed Unive rsity of 00:00:00 [facility] Hep B, Adol or Pedi 2000-06-03 Completed Unive rsity of Dosage 00:00:00 [facility] Pneumococcal 13 2000-06-03 Completed Universit y of Conjugate, PCV13 00:00:00 [place] [facility]ical (Prevnar 13) Branch HIB 4 Dose Schedule 2000-06-03 Completed Unive rsity of 00:00:00 [facility] Hep B, Adol or Pedi 2000-06-03 Completed Unive rsity of Dosage 00:00:00 [facility] Pneumococcal 13 2000-06-03 Completed Universit y of Conjugate, PCV13 00:00:00 [place] [facility]ical (Prevnar 13) Branch HIB 4 Dose Schedule 2000-06-03 Completed Unive rsity of 00:00:00 [facility] HIB 4 Dose Schedule 2000-06-03 Completed Unive rsity of 00:00:00 [facility] Hep B, Adol or Pedi 2000-06-03 Completed Unive rsity of Dosage 00:00:00 [facility] Pneumococcal 13 2000-06-03 Completed Universit y of Conjugate, PCV13 00:00:00 [place] [facility] (Prevnar 13) Branch HIB 4 Dose Schedule 2000-06-03 Completed Unive rsity of 00:00:00 [facility] Hep B, Adol or Pedi 2000-06-03 Completed Unive rsity of Dosage 00:00:00 [facility] Hep B, Adol or Pedi 2000-06-03 Completed Unive rsity of Dosage 00:00:00 [facility] Pneumococcal 13 2000-06-03 Completed Universit y of Conjugate, PCV13 00:00:00 [place] [facility] (Prevnar 13) Branch HIB 4 Dose Schedule 2000-06-03 Completed Unive rsity of 00:00:00 [facility] Hep B, Adol or Pedi 2000-06-03 Completed Unive rsity of Dosage 00:00:00 [facility] Pneumococcal 13 2000-06-03 Completed Universit y of Conjugate, PCV13 00:00:00 [place] [facility] (Prevnar 13) Branch Pneumococcal 13 2000-06-03 Completed Universit y of Conjugate, PCV13 00:00:00 [place] [facility] (Prevnar 13) Branch HIB 4 Dose Schedule 2000-06-03 Completed Unive rsity of 00:00:00 [facility] Hep B, Adol or Pedi 2000-06-03 Completed Unive rsity of Dosage 00:00:00 [facility] Pneumococcal 13 2000-06-03 Completed Universit y [...] Completed Universit y of Conjugate, PCV13 00:00:00 [facility] dical (Prevnar 13) Branch DTAP 1999 Completed University of 00:00:00 [facility] Pneumococcal 13 1999 Completed Universit y of Conjugate, PCV13 00:00:00 [facility] dical (Prevnar 13) Branch DTAP 1999 Completed University of 00:00:00 [facility] Pneumococcal 13 1999 Completed Universit y of Conjugate, PCV13 00:00:00 [facility] dical (Prevnar 13) Branch DTAP 1999 Completed University of 00:00:00 [facility] DTAP 1999 Completed University of 00:00:00 [facility] Pneumococcal 13 1999 Completed Universit y of Conjugate, PCV13 00:00:00 [facility] dical (Prevnar 13) Branch DTAP 1999 Completed University of 00:00:00 [facility] Pneumococcal 13 1999 Completed Universit y of Conjugate, PCV13 00:00:00 [facility] dical (Prevnar 13) Branch DTAP 1999 Completed University of 00:00:00 [facility] Pneumococcal 13 1999 Completed Universit y of Conjugate, PCV13 00:00:00 [facility] dical (Prevnar 13) Branch DTAP 1999 Completed University of 00:00:00 [facility] Pneumococcal 13 1999 Completed Universit y of Conjugate, PCV13 00:00:00 [facility] dical (Prevnar 13) Branch Pneumococcal 13 1999 Completed Universit y of Conjugate, PCV13 00:00:00 [facility] dical (Prevnar 13) Branch DTAP 1999 Completed University of 00:00:00 [facility] Pneumococcal 13 1999 Completed Universit y of Conjugate, PCV13 00:00:00 [facility] dical (Prevnar 13) Branch DTAP 1999 Completed University of 00:00:00 [facility] HIB 4 Dose Schedule 1999 Completed Unive rsity of 00:00:00 [facility] [facility] Hep B, Adol or Pedi 1999 Completed Unive rsity of Dosage 00:00:00 [facility] Polio (IPV/OPV) 1999 Completed [facility] y of 00:00:00 [facility] DTAP 1999 Completed University of 00:00:00 [facility] HIB 4 Dose Schedule 1999 Completed Unive rsity of 00:00:00 [facility] Hep B, Adol or Pedi 1999 Completed Unive rsity of Dosage 00:00:00 [facility] Polio (IPV/OPV) 1999 Completed [facility]it y of 00:00:00 [facility] DTAP 1999 Completed University of 00:00:00 [facility] HIB 4 Dose Schedule 1999 Completed Unive rsity of 00:00:00 [facility] Hep B, Adol or Pedi 1999 Completed Unive rsity of Dosage 00:00:00 [facility] DTAP 1999 Completed University of 00:00:00 [facility] Polio (IPV/OPV) 1999 Completed [facility]it y of 00:00:00 [facility] DTAP 1999 Completed University of 00:00:00 [facility] HIB 4 Dose Schedule 1999 Completed Unive rsity of 00:00:00 [facility] Hep B, Adol or Pedi 1999 Completed Unive rsity of Dosage 00:00:00 [facility] Polio (IPV/OPV) 1999 Completed [facility] 00:00:00 [facility] HIB 4 Dose Schedule 1999 Completed [facility]ive rsity of 00:00:00 [facility] DTAP 1999 Completed University of 00:00:00 [facility] HIB 4 Dose Schedule 1999 Completed Unive rsity of 00:00:00 [facility] Hep B, Adol or Pedi 1999 Completed Unive rsity of Dosage 00:00:00 [facility] Polio (IPV/OPV) 1999 Completed [facility] 00:00:00 [facility] DTAP 1999 Completed [facility] 00:00:00 [facility] Hep B, Adol or Pedi 1999 Completed Unive rsity of Dosage 00:00:00 [facility] HIB 4 Dose Schedule 1999 Completed Unive rsity of 00:00:00 [facility] Hep B, Adol or Pedi 1999 Completed Unive rsity of Dosage 00:00:00 [facility] Polio (IPV/OPV) 1999 Completed [facility]it [facility] 00:00:00 [facility] DTAP 1999 Completed [facility] of 00:00:00 [facility] HIB 4 Dose Schedule 1999 Completed [facility]ive rsity of 00:00:00 [facility] Hep B, Adol or Pedi 1999 Completed [facility]ive rsity of Dosage 00:00:00 [facility] Polio (IPV/OPV) 1999 Completed [facility] 00:00:00 [facility] Polio (IPV/OPV) 1999 Completed [facility] of 00:00:00 [facility] DTAP 1999 Completed [facility] of 00:00:00 [facility] HIB 4 Dose Schedule 1999 Completed [facility] rsity of 00:00:00 [facility] Hep B, Adol or Pedi 1999 Completed Unive rsity of Dosage 00:00:00 [facility] Polio (IPV/OPV) 1999 Completed [facility] 00:00:00 [facility] DTAP 1999 Completed [facility] of 00:00:00 [facility] Hep B, Adol or Pedi 1999 Completed [facility]ive rsity of Dosage 00:00:00 [facility] Polio (IPV/OPV) 1999 Completed [facility] 00:00:00 [facility] DTAP 1999 Completed [facility] of 00:00:00 [facility] HIB 4 Dose Schedule 1999 Completed [facility] rsity of 00:00:00 [facility] Hep B, Adol or Pedi 1999 Completed [facility]ive rsity of Dosage 00:00:00 [facility] Polio (IPV/OPV) 1999 Completed [facility] 00:00:00 [facility] DTAP 1999 Completed [facility] of 00:00:00 [facility] DTAP 1999 Completed [facility] of 00:00:00 [facility] HIB 4 Dose Schedule 1999 Completed [facility]ive rsity of 00:00:00 [facility] Hep B, Adol or Pedi 1999 Completed [facility]ive rsity of Dosage 00:00:00 [facility] Polio (IPV/OPV) 1999 Completed [facility] 00:00:[address] [facility] DTAP 1999 Completed [facility] of 00:00:00 [facility] HIB 4 Dose Schedule 1999 Completed [facility] rsity of 00:00:00 [facility] Hep B, Adol or Pedi 1999 Completed Unive rsity of Dosage 00:00:00 [facility] HIB 4 Dose Schedule 1999 Completed Unive rsity of 00:00:00 [facility] Polio (IPV/OPV) 1999 Completed [facility] of 00:00:00 [facility] DTAP 1999 Completed [facility] of 00:00:00 [facility] HIB 4 Dose Schedule 1999 Completed [facility] rsity of 00:00:00 [facility] Hep B, Adol or Pedi 1999 Completed Unive rsity of Dosage 00:00:00 [facility] Polio (IPV/OPV) 1999 Completed [facility] of 00:00:00 [facility] Hep B, Adol or Pedi 1999 Completed [facility]ive rsity of Dosage 00:00:00 [facility] DTAP 1999 Completed [facility] of 00:00:00 [facility] HIB 4 Dose Schedule 1999 Completed [facility]ive rsity of 00:00:00 [facility] Hep B, Adol or Pedi 1999 Completed [facility]ive rsity of Dosage 00:00:00 [facility] Polio (IPV/OPV) 1999 Completed [facility] 00:00:00 [facility] DTAP 1999 Completed University of 00:00:00 [facility] HIB 4 Dose Schedule 1999 Completed [facility]ive rsity of 00:00:00 [facility] Hep B, Adol or Pedi 1999 Completed [facility]ive rsity of Dosage 00:00:00 [facility] Polio (IPV/OPV) 1999 Completed [facility] 00:00:00 [facility] Polio (IPV/OPV) 1999 Completed [facility] 00:00:00 [facility] DTAP 1999 Completed [facility] 00:00:00 [facility] HIB 4 Dose Schedule 1999 Completed [facility]ive rsity of 00:00:00 [facility] Hep B, Adol or Pedi 1999 Completed [facility]ive rsity of Dosage 00:00:00 [facility] Polio (IPV/OPV) 1999 Completed [facility] 00:00:00 [facility] DTAP 1999 Completed [facility] of 00:00:00 [facility] HIB 4 Dose Schedule 1999 Completed Unive rsity of 00:00:00 [facility] Vital Signs Vital Name Observation Time Observation Value Comments Source Body height 2019-06-09 13:56:00 154.9 cm Universi ty of [facility] Body weight 2019-06-09 13:56:00 61.236 kg Universi ty of [facility] BMI 2019-06-09 13:56:00 25.51 kg/m2 Universi ty of [facility] Body height 2019-06-09 13:56:00 154.9 cm [facility] ty of [facility] Body weight 2019-06-09 13:56:00 61.236 kg Universi ty of [facility] BMI 2019-06-09 13:56:00 25.51 kg/m2 Universi ty of [facility] Systolic blood 2019-05-03 15:48:00 118 mm[Hg] Univer sity of pressure [facility] Diastolic blood 2019-05-03 15:48:00 76 mm[Hg] Unive rsity of pressure [facility] Heart rate 2019-05-03 15:48:00 68 /min Universi ty of [facility] Body temperature 2019-05-03 15:48:00 36.83 [address] [facility] Respiratory rate 2019-05-03 15:48:00 16 /min Univ ersity of [facility] Body weight 2019-05-03 15:48:00 61.236 kg Universi ty of [facility] Systolic blood 2019-05-03 15:48:00 118 mm[Hg] Univer sity of pressure [facility] Diastolic blood 2019-05-03 15:48:00 76 mm[Hg] Unive rsity of pressure [facility] Heart rate 2019-05-03 15:48:00 68 /min [facility] Body temperature 2019-05-03 15:48:00 36.83 Shelley [facility] rate 2019-05-03 15:48:00 16 /min [facility] Body weight 2019-05-03 15:48:00 61.236 kg [facility] Procedures Procedure Date / Time Performed Performing Clinician Sour e ASSIGNMENT OF BENEFITS 2019-06-11 15:41:03 Doctor Unassigned, No [facility] GARDASIL 9 (HPV 9V) 2019-05-03 16:26:10 [facility] Encounters Start End Encounter Admission Attending Care Care Encounter Source Date/Time Date/Time Type Type Clinicians Facility Department ID 2020-02-13 2020-02-13 Outpatient [facility] PDPFFIB QWI COH 00:00:00 00:00:00 [id number] 2020-01-02 2020-01-02 Outpatient R JOLYNN [facility] [id number] Univers 10:00:00 10:00:00 [facility] 2019-12-28 2019-12-28 [facility] [id number] Univers 13:45:00 13:45:00 [facility] 2019-12-07 2019-12-07 Outpatient R JOLYNN [facility] [id number] Univers 13:00:00 13:00:00 [facility] 2019-06-13 2019-06-13 Outpatient R [facility] [id number] Univers 14:00:00 14:00:00 [facility] 2019-06-13 2019-06-13 Telephone Pcp [facility] [id number] 00:00:00 00:00:00 Patient Julien [id number] Does Not Sahil [id number] Have A Professio [phone] [place] [address] Building 2019-06-13 2019-06-13 Case Andreia James [facility] [id number] 00:00:00 00:00:00 Management [place] [id number] [place] [id number] Professio [phone] [address] 2019-06-13 2019-06-13 Telephone Pcp, [facility] [id number] Univers 00:00:00 00:00:00 Patient [place] [id number] i ty of Does Not [place] 4.2.7.2.686 Alberto as Have A Professio [phone] Va dical [address] 2019-06-13 2019-06-13 Case Andreia James [facility] [id number] Univers 00:00:00 00:00:00 Management [place] [id number] [place] [phone] [address] 2019-06-11 2019-06-11 Outpatient R [facility] [id number] Univers 11:30:00 11:30:00 ity of [facility] 2019-06-11 2019-06-11 Delivery Helper Lady, [facility] [id number] 10:45:08 11:00:08 Visit Lab Main [place] [id number] [place] 4.2.7.2.[address] Profess[phone] 2019-06-11 2019-06-11 Delivery Helper Lady, Adc Lab Main [facility] [id number] [facility] 10:45:08 11:00:08 Visit Andreia James Donnell [place] [id number] [place]y [place] Profess[place] [phone] [address] dic[address] 2019-06-11 2019-06-11 Orders Doctor RODRIGUEZ [id number] 00:00:00 00:00:00 Only Unassigned, EDMUNDO 350.1.13.10 [facility] 4.2.7.2.686 [phone] [id number] 2019-06-11 2019-06-11 Orders Doctor RODRIGUEZ [id number] Univers 00:00:00 00:00:00 Only Unassigned, EDMUNDO 350.1.13.10 ity of [place] [facility] 4.2.7.2.686 Alberto as [phone] [address] 2019-06-09 2019-06-09 Delivery Helper 2, Adc Lab [facility] [id number] 13:04:36 13:19:36 Visit [place] 350.1.13.10 [place] 4.2.7.2.686 Professio [phone] [address] 2019-06-09 2019-06-09 Delivery Helper 2, [facility] [id number] [facility] 13:04:36 13:19:36 Visit Andreia James Donnell [place] 350.1.13.10 [place]y [place] [phone] [address] dic[address] 2019-06-09 2019-06-09 [facility] [id number] 08:07:08 10:52:20 ne Visit Donnell [place] 350.1.13.10 [place] 4.2.7.2.686 Professio [phone] [address] 2019-06-09 2019-06-09 Telemedici James Andreia [facility] [id number] [facility] 08:07:08 10:52:20 ne Visit Donnell [place] 350.1.13.10 [place]y [place] [phone] [address] 2019-06-09 2019-06-09 Outpatient R ERIKA ANDREIA [facility] [id number] Univers 10:00:00 10:00:00 ity of [facility] 2019-05-31 2019-05-31 Telephone Nurse, [facility] [id number] 00:00:00 00:00:00 Women's [place] 350.1.13.10 Health [place] 4.2.7.2.686 Professio [phone] [address] 2019-05-31 2019-05-31 Telephone Nurse, Bhavna [facility] [id number] [facility] 00:00:00 00:00:00 Women's [place] 350.1.13.10 i ty of Health [place] [phone] [address] 2019-05-03 2019-05-03 Office Jolynn [facility] [id number] 10:44:19 11:28:14 Visit Nano [place] [id number] [place] 4.2.7.2.686 Professio [phone] [address] 2019-05-03 2019-05-03 Office Jolynn [facility] [id number] [facility] 10:44:19 11:28:14 Visit Nano [place] 350.1.13.10 i ty [place] [phone] [address] 2019-05-03 2019-05-03 Outpatient R JOLYNN [facility] [id number] Univers 10:45:00 10:45:00 NANO maldonado [facility] 2019-01-18 2019-01-18 Outpatient R ANDREIA JAMES [facility] [id number] Univers 15:00:00 15:29:41 joel [facility] 2018-12-06 2018-12-06 Outpatient R JOLYNN [facility] [id number] Univers 10:30:00 12:05:26 NANO brant [facility] Results This patient has no known results.
[2022-02-21 16:28] LABS: Urine Blood Negative (Negative); Urine Glucose Negative (Negative); Urine Protein Negative (Negative)
[2022-02-21 16:36] LABS: Urine Bacteria <20 /HPF (<20); Urine Crystals Unidentified Few /HPF (None Seen); Urine Mucus Slight /HPF (None Seen); Urine RBC <5 /HPF (None Seen)
[2022-02-21 16:45] LABS: Urine Blood Negative (Negative); Urine Glucose Negative (Negative); Urine Protein Negative (Negative); Urine Specific Gravity 1.015 (1.005-1.030); Urine pH 7.5 (5.0-7.0)
--- NOTE | 2022-02-21 17:52 | RAD REPORT ---
EXAM DESCRIPTION: US - OB Limited - 02/21/2022 5:33 pm CLINICAL HISTORY: Abdominal pain/ COMPARISON: None FINDINGS: Limited ultrasound performed to assess for viability, placenta, amniotic fluid and c ervix Single live intrauterine is in cephalic presentation. The placenta is posterior. No subchorionic/retroplacental bleed Amniotic fluid within normal limits. Cardiac activity 135 beats per minute. The cervix is closed measuring 3.5 centimeters The right and left adnexal unremarkable BPD 4 centimeters 18 weeks 1 day HC 15.1 centimeters 18 weeks 1 day AC 12.4 centimeters 18 weeks 0 days FL 2.4 centimeters 17 weeks 2 days IMPRESSION: Single live intrauterine in cephalic presentation Estimated gestational age 17 weeks 6 days YARON 07/26/2022
--- NOTE | 2022-02-21 18:00 | ER ---
Nurse's Notes [facility] Name: Pippa Lopez Age: 21 yrs Sex: Female : 2000 Arrival Date: 02/21/2022 Time: 15:44 Bed 17 Private MD: Diagnosis: 18 weeks gestation of Presentation: 02/21 16:07 Chief complaint: Abdominal cramping since this morning. Pt is 18 weeks . hb Coronavirus screen: At this time, the client does not indicate any symptoms associated with coronavirus-19. Ebola Screen: No symptoms or risks identified at this time. Initial Sepsis Screen: Does the patient meet any 2 criteria? No. Patient's initial sepsis screen is negative. Does the patient have a suspected source of infection? No. Patient's initial sepsis screen is negative. Risk Assessment: Do you want to hurt yourself or someone else? Patient reports no desire to harm self or others. Onset of symptoms was February 21, 2022. 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 - Social history:: Smoking status: Reported history of juuling and/or vaping. Screenin:47 [facility] ED Fall Risk Assessment (Adult) History of falling in the last 3 months, mb9 including since admission No falls in past 3 months (0 pts) Confusion or Disorientation No (0 pts) Intoxicated or Sedated No (0 pts) Impaired Gait No (0 pts) Mobility Assist Device Used No (0 pt) Altered Elimination No (0 pt) Score/Fall Risk Level 0 - 2 = Low Risk Maintained a safe environment. Abuse screen: Denies threats or abuse. Nutritional screening: No deficits noted. Tuberculosis screening: No symptoms or risk factors identified. Assessment: 16:28 General: Appears in no apparent distress. Behavior is anxious. Pain: Complains of pain mb9 in abdomen Pain does not radiate. Quality of pain is described as aching. Neuro: Level of Consciousness is awake, alert, obeys commands, Oriented to person, place, time, situation, Appropriate for age. Cardiovascular: Rhythm is regular. Respiratory: Airway is patent Respiratory effort is even, unlabored, Respiratory pattern is regular, symmetrical, Breath sounds are clear bilaterally. GI: Abdomen is round non-distended, Bowel sounds present X 4 quads. Abdomen is tender to palpation in right lower quadrant and left lower quadrant Reports cramping. : Urine is clear. EENT: No signs and/or symptoms were reported regarding the EENT system. Derm: Skin is pink, warm \T\ dry. Musculoskeletal: Range of motion: intact in all extremities. 17:00 Reassessment: ultrasound at bedside. mb9 17:39 Reassessment: No changes from previously documented assessment. Respiratory: Airway is mb9 patent. Derm: Skin is pink, warm \T\ dry. 18:15 Neuro: Level of Consciousness is awake, alert, obeys commands, Oriented to person, mb9 place, time, situation. Respiratory: Airway is patent. Derm: Skin is pink, warm \T\ dry. Vital Signs: 16:07 BP 134 / 82; Pulse 83; Resp 16; Temp 98.1(TE); Pulse Ox 98% on R/A; Pain 4/10; hb 16:47 BP 114 / 65; Pulse 74; Resp 18; Pulse Ox 100% on R/A; mb9 17:53 BP 100 / 51; Pulse 86; Resp 18; Pulse Ox 100% on R/A; mb9 ED Course: 15:44 Patient arrived in ED. mr 15:44 [facility] kb 15:44 Oracio Russell MD is Attending Physician. kb 16:09 Triage completed. hb 16:09 Arm band placed on. hb 16:09 Placed in gown. Bed in low position. Call light in reach. Side rails up X 1. mb9 16:22 Shelby Chow RN is Primary Nurse. mb9 16:27 Urine Microscopic Only Sent. mb9 16:48 No provider procedures requiring assistance completed. mb9 17:35 US OB Limited In Process Unspecified. EDMS 18:15 Patient did not have IV access during this emergency room visit. mb9 Administered Medications: No medications were administered Medication: 16:48 VIS not applicable for this client. mb9 Outcome: 17:59 Discharge ordered by MD. moe 18:15 Discharged to home ambulatory. mb9 18:15 Condition: stable 18:15 Discharge instructions given to patient, Instructed on discharge instructions, follow up and referral plans. Demonstrated understanding of instructions, follow-up care. 18:16 Patient left the ED. mb9 Signatures: Dispatcher [employer] EDMS Camila Crum, LACE WINDER-Viktoriya LACE WINDER-Shelby Nava Heather RN RN Shelby Chow RN RN mb9 Corrections: (The following items were deleted from the chart) 16:10 16:07 BP 134 / 82; Pulse 77bpm; Resp 16bpm; Pulse Ox 98% RA; Temp 98.1F Temporal; hb hb 16:11 16:07 BP 134 / 82; Pulse 83bpm; Resp 16bpm; Pulse Ox 98% RA; Temp 98.1F Temporal; Pain hb 4/10; hb
--- NOTE | 2022-02-21 18:00 | EDPHYS ---
Physician Documentation [facility] Name: Pippa Lopez Age: 21 yrs Sex: Female : 2000 Arrival Date: 02/21/2022 Time: 15:44 Bed 17 Private MD: ED Physician Oracio Russell HPI: 02/21 17:27 This 21 yrs old Female presents to ER via Ambulatory with complaints of 18 wks kb , Abdominal Cramping. 17:27 The patient presents to the emergency department with abdominal pain, of the suprapubic kb area, that started 5 hour(s) ago, described as crampy. The estimated gestational age is 18 weeks. course: care: private OB physician. Previous pregnancies: in previous pregnancies patient has had. Associated signs and symptoms: Pertinent positives: abdominal pain, Pertinent negatives: vaginal bleeding. The patient has not experienced similar symptoms in the past. The patient has not recently seen a physician. 17:27 Pt reports lower abd cramping that started around 1130. 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 - Social history:: Smoking status: Reported history of juuling and/or vaping. ROS: 17:26 Constitutional: Negative for fever, chills, and weight loss. kb 17:26 Abdomen/GI: Positive for abdominal cramps, Negative for nausea, vomiting, and diarrhea. 17:26 All other systems are negative. Exam: 17:26 Constitutional: This is a well developed, well nourished patient who is awake, alert, kb and in no acute distress. Head/Face: Normocephalic, atraumatic. ENT: Moist Mucous membranes Cardiovascular: Regular rate and rhythm with a normal S1 and S2. No gallops, murmurs, or rubs. No pulse deficits. Respiratory: Respirations even and unlabored. No increased work of breathing. Talking in full sentences Abdomen/GI: Soft, non-tender. No distention Skin: Warm, dry with normal turgor. Normal color. MS/ Extremity: Pulses equal, no cyanosis. Neurovascular intact. Full, normal range of motion. Neuro: Awake and alert, GCS 15, oriented to person, place, time, and situation. Moves all extremities. Normal gait. Psych: Awake, alert, with orientation to person, place and time. Behavior, mood, and affect are within normal limits. Vital Signs: 16:07 BP 134 / 82; Pulse 83; Resp 16; Temp 98.1(TE); Pulse Ox 98% on R/A; Pain 4/10; hb 16:47 BP 114 / 65; Pulse 74; Resp 18; Pulse Ox 100% on R/A; mb9 17:53 BP 100 / 51; Pulse 86; Resp 18; Pulse Ox 100% on R/A; mb9 MDM: 16:05 Patient medically screened. kb 16:56 Data reviewed: vital signs, nurses notes. Data interpreted: Pulse oximetry: on room air kb is 100 %. Interpretation: normal. 17:59 Counseling: I had a detailed discussion with the patient and/or guardian regarding: the kb historical points, exam findings, and any diagnostic results supporting the discharge/admit diagnosis, lab results, radiology results, the need for outpatient follow up, an OB/Gyne specialist, to return to the emergency department if symptoms worsen or persist or if there are any questions or concerns that arise at home. 02/21 16:12 Order name: Urine Microscopic Only; Complete Time: 16:37 kb 02/21 16:28 Order name: Urine Dipstick-Ancillary; Complete Time: 16:31 EDMS 02/21 16:12 Order name: Urine Dipstick-Ancillary (obtain specimen); Complete Time: 16:27 kb 02/21 16:12 Order name: US OB Limited; Complete Time: 17:53 kb 02/21 16:45 Order name: Urine Dipstick-Ancillary; Complete Time: 16:50 EDMS Administered Medications: No medications were administered Disposition: 18:43 Co-signature as Attending Physician, Oracio Russell MD. rn Disposition Summary: 02/21/22 17:59 Discharge Ordered Location: Home kb Condition: Stable kb Diagnosis - 18 weeks gestation of kb Followup: kb - With: Emergency Department - When: As needed - Reason: Worsening of condition Followup: kb - With: Private Physician - When: 2 - 3 days - Reason: Recheck today's complaints, Continuance of care, Re-evaluation by your physician Discharge Instructions: - Discharge Summary Sheet kb - Abdominal Pain During kb Forms: - Medication Reconciliation Form kb - Thank You Letter kb - Antibiotic Education kb - Prescription Opioid Use kb Signatures: Dispatcher [employer] EDMS Radames Camila, SALT REFINER-C SALT REFINER-Oracio Yuan MD MD rn Baxter, Heather RN RN Shelby Chow RN RN mb9 Corrections: (The following items were deleted from the chart) 17:34 16:13 OB Complete+US.RAD.BRZ ordered. EDMS EDMS
[2022-02-21 18:51] VITALS: TEMP 98.1
[2022-02-21 18:52] VITALS: O2SAT 100
[2022-02-21 18:53] VITALS: BP 100/51
== END 2022-02-21 18:16 | disposition home or self-care (01) ==
LOC: ER 15:41
DX: O26.892 Other specified pregnancy related conditions, second trimester (principal); Z3A.18 18 weeks gestation of pregnancy
CPT/HCPCS: 76815; 81003; 81015; 99283

== ENCOUNTER 2022-02-28 20:27 | Emergency (ER) | payer OTHER ==
--- OUTSIDE RECORDS SUMMARY | 2022-02-28 20:51 | XMS REPORT | Continuity of Care Document ---
:2000 Author Organization [facility] t Address [address] [place] [address] Care Team Providers Name Role Phone NANO GONZÁLES Attending Clinician Unavailable Pcp, Patient Does Not Have A Attending Clinician [phone] Andreia James MD Attending Clinician Pob, [facility] Attending Clinician Unavailable Doctor Unassigned, [place] Attending Clinician Unavailable 2, [facility] Attending Clinician Unavailable ANDREIA JAMES Attending Clinician Unavailable Nurse, [facility] Attending Clinician Unavailable Nano Gonzáles PA-C Attending Clinician Payers Payer Name Policy Type Policy Number Effective Date Expiration Date S itzel [employer] CHOICE POS [id number] 2018 00:00:00 II Problems Condition Condition Condition Status Onset Resolution Last Treating Co mments Source Name Details Category Date Date Treatment Clinician Date Pelvic Pelvic Disease Active [facility] cramping cramping 4-16 ity of in in 00:00: [place] antepartum antepartum 00 Me dical period period [...] tract tract 00:00: [place] infection infection 00 [facility] Oral Oral Disease Active [facility] [place] [facility] [place] [facility] 7[facility]27 it y of leslie use leslie use 00:00: [place] 00 [facility] Allergies, Adverse Reactions, Alerts Allergy Allergy Status [...] Stop Date Quantity Comments Source ASSERTION 2019-05-15 [facility] 00:00:00 [facility] Sex Assigned At [facility] of [facility] Alcohol intake 2019-06-09 2019-06-09 [facility] 00:00:00 00:00:00 [facility] Alcohol Comment 2018-12-06 2018-12-06 every thursday [facility] 00:[facility]00 00:00:00 [facility] Smoking Status Start Date Stop Date Source Never smoker [facility] Medications Ordered Filled Start Stop Current Ordering Indication Dosage Frequency Signature Comments Components Source Medication Medication Date Date Medication? Clinician (SIG) Name Name 2020- No Take by Unive rs vits62/FA/o 4-16 04-16 mouth. ity o f m3/dha/epa 21:12: 00:00 [place] ( 59 :00 Medical GUMMY ORAL) Branch Yes Take by Univer s vits62/FA/o 4-16 mouth. ity of m3/dha/epa 14:00: [place] ( 08 Medical GUMMY ORAL) Branch 2020-0 Yes Take by Univer s vit 4-16 mouth. ity of calc,iron,f 14:00: [place] [address] Medical ( Branch VITAMIN ORAL) 2020-0 Yes Take by Univer s vit 4-16 mouth. ity of calc,iron,f 14:[facility]: [facility] Branch V[facility]) 2020-0 Yes Take by Univer s vit 4-16 mouth. ity of calc,iron,f 14:00: [place] [address] Medical ( Branch VITAMIN ORAL) 2020-0 Yes Take by Univer s vit 4-16 mouth. ity of calc,iron,f 14:00: [address] ( Branch VITAMIN ORAL) Yes Take by [facility] vit 4-16 mouth. ity of calc,iron,f 14:00: [address] ( Branch VITAMIN ORAL) Yes Take by [facility] vit 4-16 mouth. ity of calc,iron,f 14:00: [address] ( Branch VITAMIN ORAL) albuterol Yes [id number] 2{puff} Inhale 2 Univers 90 4-16 Puffs ity of mcg/actuati 00:00: every 6 [place] as on inhaler 00 (six) Medical hours as Branch needed for Wheezing, Shortness of Breath, Bronchospa sm or Chest tightness. albuterol Yes [id number] 2{puff} Inhale 2 Univers 90 4-16 Puffs ity of mcg/actuati 00:00: every 6 [place] as on inhaler 00 (six) Medical hours as Branch needed for Wheezing, Shortness of Breath, Bronchospa sm or Chest tightness. albuterol Yes [id number] 2{puff} Inhale 2 Univers 90 4-16 Puffs ity of mcg/actuati 00:00: every 6 [place] as on inhaler 00 (six) Medical hours as Branch needed for Wheezing, Shortness of Breath, Bronchospa sm or Chest tightness. albuterol Yes [id number] 2{puff} Inhale 2 Univers 90 4-16 Puffs ity of mcg/actuati 00:00: every 6 [place] as on inhaler 00 (six) Medical hours as Branch needed for Wheezing, Shortness of Breath, Bronchospa sm or Chest tightness. albuterol Yes [id number] 2{puff} Inhale 2 Univers 90 4-16 Puffs [...] 30 min ity of tablet 00:00: before [place] azithromyc Medical in dose Branch proMETHazin 2018-02 [...] 30 min ity of tablet 00:00: before [place] azithromyc Medical in dose Branch proMETHazin 2018-02 Yes 1 tablet Un rashmi e 25 mg 0-16 po 30 min ity of tablet 00:00: before [place] azithromyc Medical in dose Branch proMETHazin 2018-02 Yes 1 tablet Un rashmi e 25 mg 0-16 po 30 min ity of tablet 00:00: before azithromyc Medical in dose Branch proMETHazin 2018-02 Yes 1 tablet Un rashmi e 25 mg 0-16 po 30 min ity of tablet 00:00: before [place] azithromyc Medical in dose Branch norgestimat Yes [id number] 1{tbl} Take 1 Univers e-ethinyl 8-24 tablet by ity o f estradiol 00:00: mouth [place] (TRINESSA 00 daily. Medical LO) Branch 0.18/0.215/ 0.25 mg-25 mcg tablet norgestimat 2017- Yes [id number] 1{tbl} Take 1 Univers e-ethinyl 8-24 tablet by ity o f estradiol 00:00: mouth [place] (TRINESSA 00 daily. Medical LO) Branch 0.18/0.215/ 0.25 mg-25 mcg tablet norgestimat 2017- Yes [id number] 1{tbl} Take 1 Univers e-ethinyl 8-24 tablet by ity o f estradiol 00:00: mouth [place] (TRINESSA 00 daily. Medical LO) Branch 0.18/0.215/ 0.25 mg-25 mcg tablet norgestimat 2017- Yes [id number] 1{tbl} Take 1 Univers e-ethinyl 8-24 tablet by ity o f estradiol 00:00: mouth [place] (TRINESSA 00 daily. Medical LO) Branch 0.18/0.215/ 0.25 mg-25 mcg tablet norgestimat 2020- No [id number] 1{tbl} Take 1 Univers e-ethinyl 8-24 04-16 tablet by ity of estradiol 00:00: 00:00 mouth [place] (TRINESSA 00 :00 daily. Medical LO) Branch 0.18/0.215/ 0.25 mg-25 mcg tablet Immunizations Ordered Immunization Filled Immunization Date Status Commen ts Source Name Name HPV9 2019-05-03 Completed University of 00:00:00 [facility] HPV9 2019-05-03 Completed University of 00:00:00 [facility] HPV9 2019-05-03 Completed University of 00:00:00 [facility] HPV9 2019-05-03 Completed University of 00:00:00 [facility] HPV9 2019-05-03 Completed University of 00:00:00 [facility] HPV9 2019-05-03 Completed University of 00:00:00 [facility] HPV9 2019-05-03 Completed University of 00:00:00 [facility] HPV9 2019-05-03 Completed University of 00:00:00 [facility] HPV9 2019-05-03 Completed University of 00:00:00 [facility] HPV9 2018-12-06 Completed University of 00:00:00 [facility] HPV9 2018-12-06 Completed University of 00:00:00 [facility] HPV9 2018-12-06 Completed University of 00:00:00 [facility] HPV9 2018-12-06 Completed University of 00:00:00 [facility] HPV9 2018-12-06 Completed University of 00:00:00 [facility] HPV9 2018-12-06 Completed University of 00:00:00 [facility] HPV9 2018-12-06 Completed University of 00:00:00 [facility] HPV9 2018-12-06 Completed University of 00:00:00 [facility] HPV9 2018-12-06 Completed University of 00:00:00 [facility] HPV9 2015-09-19 Completed University of 00:00:00 [facility] Branch HPV9 2015-09-19 Completed University of 00:00:00 [place] [facility] HPV9 2015-09-19 Completed University of 00:00:00 [place] [facility] HPV9 2015-09-19 Completed University of 00:00:00 [facility] Branch HPV9 2015-09-19 Completed University of 00:00:00 [place] [facility] HPV9 2015-09-19 Completed University of 00:00:00 [place] [facility] HPV9 2015-09-19 Completed University of 00:00:00 [place] [facility] HPV9 2015-09-19 Completed University of 00:00:00 [facility] Branch HPV9 2015-09-19 Completed University of 00:00:00 [facility] Meningococcal 2011-07-16 Completed University of Polysaccharide 00:00:00 [place] [facility]re[facility] (groups A, C, Y and Branc h W-135) conjugate vaccine (MCV4P) TDAP (ADACEL) VACCINE 2011-07-16 Completed Uni versity of 00:00:00 [facility] Meningococcal 2011-07-16 Completed University of Polysaccharide 00:00:00 [place] [facility] (groups A, C, Y and Branc h W-135) conjugate vaccine (MCV4P) TDAP (ADACEL) VACCINE 2011-07-16 Completed Uni versity of 00:00:00 [facility] TDAP (ADACEL) VACCINE 2011-07-16 Completed Uni versity of 00:00:00 [facility] Meningococcal 2011-07-16 Completed University of Polysaccharide 00:00:00 [place] [facility] (groups A, C, Y and Branc h W-135) conjugate vaccine (MCV4P) TDAP (ADACEL) VACCINE 2011-07-16 Completed Uni versity of 00:00:00 [facility] Meningococcal 2011-07-16 Completed University of Polysaccharide 00:00:00 [place] [facility] (groups A, C, Y and Branc h W-135) conjugate vaccine (MCV4P) TDAP (ADACEL) VACCINE 2011-07-16 Completed Uni versity of 00:00:00 [facility] Meningococcal 2011-07-16 Completed University of Polysaccharide 00:00:00 [place] [facility]re[facility] (groups A, C, Y and Branc h W-135) conjugate vaccine (MCV4P) TDAP (ADACEL) VACCINE 2011-07-16 Completed Uni versity of 00:00:00 [facility] Meningococcal 2011-07-16 Completed University of Polysaccharide 00:00:00 [place] [facility]re[facility] (groups A, C, Y and Branc h W-135) conjugate vaccine (MCV4P) Meningococcal 2011-07-16 Completed University of Polysaccharide 00:00:00 [place] Medi andreina (groups A, C, Y and Branc h W-135) conjugate vaccine (MCV4P) TDAP (ADACEL) VACCINE 2011-07-16 Completed Uni versity of 00:00:00 [facility] Meningococcal 2011-07-16 Completed University of Polysaccharide 00:00:00 [place] Medi andreina (groups A, C, Y and Branc h W-135) conjugate vaccine (MCV4P) TDAP (ADACEL) VACCINE 2011-07-16 Completed Uni versity of 00:00:00 [facility] Meningococcal 2011-07-16 Completed University of Polysaccharide 00:00:00 [place] Medi [facility]reina (groups A, C, Y and Branc h W-135) conjugate vaccine (MCV4P) TDAP (ADACEL) VACCINE 2011-07-16 Completed Uni versity of 00:00:00 [facility] HEPATITIS A 2008-08-16 Completed University of 00:00:00 [facility] Varicella 2008-08-16 Completed University of (varivax)(chicken 00:00:00 [place] [facility] pox) Branch HEPATITIS A 2008-08-16 Completed University of 00:00:00 [facility] Varicella 2008-08-16 Completed University of (varivax)(chicken 00:00:00 [place] M [facility] pox) Branch HEPATITIS A 2008-08-16 Completed University of 00:00:00 [facility] Varicella 2008-08-16 Completed University of (varivax)(chicken 00:00:00 [place] M [facility] pox) Branch HEPATITIS A 2008-08-16 Completed University of 00:00:00 [facility] Varicella 2008-08-16 Completed University of (varivax)(chicken 00:00:00 [place] M [facility] pox) Branch HEPATITIS A 2008-08-16 Completed University of 00:00:00 [facility] HEPATITIS A 2008-08-16 Completed University of 00:00:00 [facility] Varicella 2008-08-16 Completed University of (varivax)(chicken 00:00:00 [place] M [facility] pox) Branch HEPATITIS A 2008-08-16 Completed University of 00:00:00 [facility] Varicella 2008-08-16 Completed University of (varivax)(chicken 00:00:00 [place] M [facility] pox) Branch HEPATITIS A 2008-08-16 Completed University of 00:00:00 [facility] Varicella 2008-08-16 Completed University of (varivax)(chicken 00:00:00 [place] [facility] pox) Branch Varicella 2008-08-16 Completed University of (varivax)(chicken 00:00:00 [place] [facility] pox) Branch HEPATITIS A 2008-08-16 Completed University of 00:00:00 [facility] Varicella 2008-08-16 Completed University of (varivax)(chicken 00:00:00 [place] M [facility] pox) Branch MMR 2003-05-24 Completed University of 00:00:00 [facility] Polio (IPV/OPV) 2003-05-24 Completed Universit y of 00:00:00 [facility] Varicella 2003-05-24 Completed University of (varivax)(chicken 00:00:00 [place] M edical pox) Branch DTAP 2003-05-24 Completed University of 00:00:00 [facility] MMR 2003-05-24 Completed University of 00:00:00 [facility] Polio (IPV/OPV) 2003-05-24 Completed Universit y of 00:00:00 [facility] Varicella 2003-05-24 Completed University of (varivax)(chicken 00:00:00 [place] [facility] pox) Branch DTAP 2003-05-24 Completed University of 00:00:00 [facility] MMR 2003-05-24 Completed University of 00:00:00 [facility] Polio (IPV/OPV) 2003-05-24 Completed Universit y of 00:00:00 [facility] Varicella 2003-05-24 Completed University of (varivax)(chicken 00:00:00 [place] [facility] pox) Branch DTAP 2003-05-24 Completed University of 00:00:00 [facility] DTAP 2003-05-24 Completed University of 00:00:00 [facility] MMR 2003-05-24 Completed University of 00:00:00 [facility] Polio (IPV/OPV) 2003-05-24 Completed Universit y of 00:00:00 [facility] Varicella 2003-05-24 Completed University of (varivax)(chicken 00:00:00 [place] M [facility] pox) Branch DTAP 2003-05-24 Completed University of 00:00:00 [facility] MMR 2003-05-24 Completed University of 00:00:00 [facility] Polio (IPV/OPV) 2003-05-24 Completed Universit y of 00:00:00 [facility] Varicella 2003-05-24 Completed University of (varivax)(chicken 00:00:00 [place] M edical pox) Branch DTAP 2003-05-24 Completed University of 00:00:00 [facility] MMR 2003-05-24 Completed University of 00:00:00 [facility] Polio (IPV/OPV) 2003-05-24 Completed Universit y of 00:00:00 [facility] Varicella 2003-05-24 Completed University of (varivax)(chicken 00:00:00 [facility] edical pox) Branch MMR 2003-05-24 Completed University of 00:00:00 [facility] DTAP 2003-05-24 Completed University of 00:00:00 [facility] MMR 2003-05-24 Completed University of 00:00:00 [facility] Polio (IPV/OPV) 2003-05-24 Completed Universit y of 00:00:00 [facility] Varicella 2003-05-24 Completed University of (varivax)(chicken 00:00:00 [facility] edical pox) Branch Polio (IPV/OPV) 2003-05-24 Completed Universit y of 00:00:00 [facility] Varicella 2003-05-24 Completed University of (varivax)(chicken 00:00:00 [place] M [facility] pox) Branch DTAP 2003-05-24 Completed University of 00:00:00 [facility] MMR 2003-05-24 Completed University of 00:00:00 [facility] Polio (IPV/OPV) 2003-05-24 Completed Universit y of 00:00:00 [facility] Varicella 2003-05-24 Completed University of (varivax)(chicken 00:00:00 [facility] edical pox) Branch DTAP 2003-05-24 Completed University of 00:00:00 [facility] HIB 4 Dose Schedule 2001-01-22 Completed Unive rsity of 00:00:00 [facility] Pneumococcal 13 2001-01-22 Completed Universit y of Conjugate, PCV13 00:00:00 [place] Me dical (Prevnar 13) Branch HIB 4 Dose Schedule 2001-01-22 Completed Unive rsity of 00:00:00 [place] [facility] Pneumococcal 13 2001-01-22 Completed Universit y of Conjugate, PCV13 00:00:00 [place] Me d[facility] (Prevnar 13) Branch HIB 4 Dose Schedule 2001-01-22 Completed Unive rsity of 00:00:00 [facility] Branch Pneumococcal 13 2001-01-22 Completed Universit y of Conjugate, PCV13 00:00:00 [place] Me dical (Prevnar 13) Branch HIB 4 Dose Schedule 2001-01-22 Completed Unive rsity of 00:00:00 [facility] Branch Pneumococcal 13 2001-01-22 Completed Universit y of Conjugate, PCV13 00:00:00 [place] Me dical (Prevnar 13) Branch HIB 4 Dose Schedule 2001-01-22 Completed Unive rsity of 00:00:00 [facility] Branch HIB 4 Dose Schedule 2001-01-22 Completed Unive rsity of 00:00:00 [facility] Branch Pneumococcal 13 2001-01-22 Completed Universit y of Conjugate, PCV13 00:00:00 [place] Me [facility] (Prevnar 13) Branch HIB 4 Dose Schedule 2001-01-22 Completed Unive rsity of 00:00:00 [facility] Pneumococcal 13 2001-01-22 Completed Universit y of Conjugate, PCV13 00:00:00 [place] Me dical (Prevnar 13) Branch HIB 4 Dose Schedule 2001-01-22 Completed Unive rsity of 00:00:00 [facility] Pneumococcal 13 2001-01-22 Completed Universit y of Conjugate, PCV13 00:00:00 [place] Me dical (Prevnar 13) Branch Pneumococcal 13 2001-01-22 Completed Universit y of Conjugate, PCV13 00:00:00 [place] Me [facility] (Prevnar 13) Branch HIB 4 Dose Schedule 2001-01-22 Completed Unive rsity of 00:00:00 [facility] Pneumococcal 13 2001-01-22 Completed Universit y of Conjugate, PCV13 00:00:00 [place] Me d[facility] (Prevnar 13) Branch Polio (IPV/OPV) 2000-11-27 Completed Universit y of 00:00:00 [facility] DTAP 2000-11-27 Completed University of 00:00:00 [facility] Polio (IPV/OPV) 2000-11-27 Completed Universit y of 00:00:00 [place] [facility] DTAP 2000-11-27 Completed University of 00:00:00 [place] [facility] Polio (IPV/OPV) 2000-11-27 Completed Universit y of 00:00:00 [place] [facility] DTAP 2000-11-27 Completed University of 00:00:00 [place] [facility] DTAP 2000-11-27 Completed University of 00:00:00 [place] [facility] Polio (IPV/OPV) 2000-11-27 Completed Universit y of 00:00:00 [place] [facility] DTAP 2000-11-27 Completed University of 00:00:00 [place] [facility] Polio (IPV/OPV) 2000-11-27 Completed Universit y of 00:00:00 [place] [facility] DTAP 2000-11-27 Completed University of 00:00:00 [place] [facility] Polio (IPV/OPV) 2000-11-27 Completed Universit y of 00:00:00 [place] [facility] DTAP 2000-11-27 Completed University of 00:00:00 [place] [facility] Polio (IPV/OPV) 2000-11-27 Completed Universit y of 00:00:00 [place] [facility] Polio (IPV/OPV) 2000-11-27 Completed Universit y of 00:00:00 [place] [facility] DTAP 2000-11-27 Completed University of 00:00:00 [place] [facility] Polio (IPV/OPV) 2000-11-27 Completed Universit y of 00:00:00 [facility] Branch DTAP 2000-11-27 Completed University of 00:00:00 [place] [facility] MMR 2000-08-20 Completed University of [...] Branch MMR 2000-08-20 Completed University of 00:00:00 [place] [facility] HIB 4 Dose Schedule 2000-06-03 Completed Unive rsity of 00:00:00 [facility] Hep B, Adol or Pedi 2000-06-03 Completed Unive rsity of Dosage 00:00:00 [facility] Branch Pneumococcal 13 2000-06-03 Completed Universit y of Conjugate, PCV13 00:00:00 [place] [facility] (Prevnar 13) Branch HIB 4 Dose Schedule 2000-06-03 Completed Unive rsity of 00:00:00 [facility] Hep B, Adol or Pedi 2000-06-03 Completed Unive rsity of Dosage 00:00:00 [facility] Pneumococcal 13 2000-06-03 Completed Universit y of Conjugate, PCV13 00:00:00 [place] [facility] (Prevnar 13) Branch HIB 4 Dose Schedule 2000-06-03 Completed Unive rsity of 00:00:00 [facility] Hep B, Adol or Pedi 2000-06-03 Completed Unive rsity of Dosage 00:00:00 [facility] Pneumococcal 13 2000-06-03 Completed Universit y of Conjugate, PCV13 00:00:00 [place] [facility] (Prevnar 13) Branch HIB 4 Dose Schedule 2000-06-03 Completed Unive rsity of 00:00:00 [facility] Hep B, Adol or Pedi 2000-06-03 Completed Unive rsity of Dosage 00:00:00 [facility] Pneumococcal 13 2000-06-03 Completed Universit y of Conjugate, PCV13 00:00:00 [place] [facility] (Prevnar 13) Branch HIB 4 Dose Schedule 2000-06-03 Completed Unive rsity of 00:00:00 [facility] Branch HIB 4 Dose Schedule 2000-06-03 Completed Unive rsity of 00:00:00 [facility] Hep B, Adol or Pedi 2000-06-03 Completed Unive rsity of Dosage 00:00:00 [facility] Branch Pneumococcal 13 2000-06-03 Completed Universit y of Conjugate, PCV13 00:00:00 [place] [facility] (Prevnar 13) Branch HIB 4 Dose Schedule 2000-06-03 Completed Unive rsity of 00:00:00 [facility] Hep B, Adol or Pedi 2000-06-03 Completed Unive rsity of Dosage 00:00:00 [facility] Hep B, Adol or Pedi 2000-06-03 Completed Unive rsity of Dosage 00:00:00 [facility] Pneumococcal 13 2000-06-03 Completed Universit y of Conjugate, PCV13 00:00:00 [place] [facility] (Prevnar 13) Branch HIB 4 Dose Schedule 2000-06-03 Completed Unive rsity of 00:00:00 [facility] Hep B, Adol or Pedi 2000-06-03 Completed Unive rsity of Dosage 00:00:00 [facility] Pneumococcal 13 2000-06-03 Completed Universit y of Conjugate, PCV13 00:00:00 [place] [facility] (Prevnar 13) Branch Pneumococcal 13 2000-06-03 Completed Universit y of Conjugate, PCV13 00:00:00 [place] [facility] (Prevnar 13) Branch HIB 4 Dose Schedule 2000-06-03 Completed Unive rsity of 00:00:00 [facility] Hep B, Adol or Pedi 2000-06-03 Completed Unive rsity of Dosage 00:00:00 [facility] Pneumococcal 13 2000-06-03 Completed Universit y [...] Completed Universit y of Conjugate, PCV13 00:00:00 [facility] dical (Prevnar 13) Branch DTAP 1999 Completed University of 00:00:00 [facility] Pneumococcal 13 1999 Completed Universit y of Conjugate, PCV13 00:00:00 [facility] dical (Prevnar 13) Branch DTAP 1999 Completed University of 00:00:00 [facility] Pneumococcal 13 1999 Completed Universit y of Conjugate, PCV13 00:00:00 [facility] dical (Prevnar 13) Branch DTAP 1999 Completed University of 00:00:00 [facility] DTAP 1999 Completed University of 00:00:00 [facility] Pneumococcal 13 1999 Completed Universit y of Conjugate, PCV13 00:00:00 [facility] dical (Prevnar 13) Branch DTAP 1999 Completed University of 00:00:00 [facility] Pneumococcal 13 1999 Completed Universit y of Conjugate, PCV13 00:00:00 [facility] dical (Prevnar 13) Branch DTAP 1999 Completed University of 00:00:00 [facility] Pneumococcal 13 1999 Completed Universit y of Conjugate, PCV13 00:00:00 [facility] dical (Prevnar 13) Branch DTAP 1999 Completed University of 00:00:00 [facility] Pneumococcal 13 1999 Completed Universit y of Conjugate, PCV13 00:00:00 [facility] dical (Prevnar 13) Branch Pneumococcal 13 1999 Completed Universit y of Conjugate, PCV13 00:00:00 [facility] dical (Prevnar 13) Branch DTAP 1999 Completed University of 00:00:00 [facility] Pneumococcal 13 1999 Completed Universit y of Conjugate, PCV13 00:00:00 [facility] dical (Prevnar 13) Branch DTAP 1999 Completed University of 00:00:00 [facility] HIB 4 Dose Schedule 1999 Completed Unive rsity of 00:00:00 [facility] Hep B, Adol or Pedi 1999 Completed Unive rsity of Dosage 00:00:00 [facility] Polio (IPV/OPV) 1999 Completed Universit y of 00:00:00 [facility] DTAP 1999 Completed University of 00:00:00 [facility] HIB 4 Dose Schedule 1999 Completed Unive rsity of 00:00:00 [facility] Hep B, Adol or Pedi 1999 Completed Unive rsity of Dosage 00:00:00 [facility] Polio (IPV/OPV) 1999 Completed Universit y of 00:00:00 [facility] DTAP 1999 Completed University of 00:00:00 [facility] HIB 4 Dose Schedule 1999 Completed Unive rsity of 00:00:00 [facility] Hep B, Adol or Pedi 1999 Completed Unive rsity of Dosage 00:00:00 [facility] DTAP 1999 Completed University of 00:00:00 [facility] Polio (IPV/OPV) 1999 Completed Universit y of 00:00:00 [facility] DTAP 1999 Completed University of 00:00:00 [facility] HIB 4 Dose Schedule 1999 Completed Unive rsity of 00:00:00 [facility] Hep B, Adol or Pedi 1999 Completed Unive rsity of Dosage 00:00:00 [facility] Polio (IPV/OPV) 1999 Completed [facility] 00:00:00 [facility] HIB 4 Dose Schedule 1999 Completed [facility] 00:00:00 [facility] DTAP 1999 Completed University of 00:00:00 [facility] HIB 4 Dose Schedule 1999 Completed [facility] of 00:00:00 [facility] Hep B, Adol or Pedi 1999 Completed [facility] rsity of Dosage 00:00:00 [facility] Polio (IPV/OPV) 1999 Completed [facility] 00:00:00 [facility] DTAP 1999 Completed [facility] 00:00:00 [facility] Hep B, Adol or Pedi 1999 Completed [facility] of Dosage 00:00:00 [facility] HIB 4 Dose Schedule 1999 Completed [facility]ity of 00:00:00 [facility] Hep B, Adol or Pedi 1999 Completed [facility] rsity of Dosage 00:00:00 [facility] Polio (IPV/OPV) 1999 Completed [facility] 00:00:00 [facility] DTAP 1999 Completed [facility] of 00:00:00 [facility] HIB 4 Dose Schedule 1999 Completed [facility] of 00:00:00 [facility] Hep B, Adol or Pedi 1999 Completed [facility]ity of Dosage 00:00:00 [facility] Polio (IPV/OPV) 1999 Completed [facility] 00:00:00 [facility] Polio (IPV/OPV) 1999 Completed [facility] 00:00:00 [facility] DTAP 1999 Completed [facility] of 00:00:00 [facility] HIB 4 Dose Schedule 1999 Completed [facility] of 00:00:00 [facility] Hep B, Adol or Pedi 1999 Completed [facility] rs[facility] of Dosage 00:00:00 [facility] Polio (IPV/OPV) 1999 Completed [facility] 00:00:00 [facility] DTAP 1999 Completed [facility] of 00:00:00 [facility] Hep B, Adol or Pedi 1999 Completed [facility] rsity of Dosage 00:00:00 [facility] Polio (IPV/OPV) 1999 Completed [facility] 00:00:00 [facility] DTAP 1999 Completed [facility] 00:00:00 [facility] HIB 4 Dose Schedule 1999 Completed [facility] of 00:00:00 [facility] Hep B, Adol or Pedi 1999 Completed [facility] rsity of Dosage 00:00:00 [facility] Polio (IPV/OPV) 1999 Completed [facility] 00:00:00 [facility] DTAP 1999 Completed [facility] 00:00:00 [facility] DTAP 1999 Completed [facility] of 00:00:00 [facility] HIB 4 Dose Schedule 1999 Completed [facility] of 00:00:00 [facility] Hep B, Adol or Pedi 1999 Completed [facility] of Dosage 00:00:00 [facility] Polio (IPV/OPV) 1999 Completed [facility] 00:00:00 [facility] DTAP 1999 Completed [facility] 00:00:00 [facility] HIB 4 Dose Schedule 1999 Completed [facility] of 00:00:00 [facility] Hep B, Adol or Pedi 1999 Completed [facility] of Dosage 00:00:00 [facility] HIB 4 Dose Schedule 1999 Completed [facility] rsity of 00:00:00 [facility] Polio (IPV/OPV) 1999 Completed [facility] 00:00:00 [facility] DTAP 1999 Completed [facility] of 00:00:00 [facility] HIB 4 Dose Schedule 1999 Completed [facility] of 00:00:00 [facility] Hep B, Adol or Pedi 1999 Completed [facility] of Dosage 00:00:00 [facility] Polio (IPV/OPV) 1999 Completed [facility] 00:00:00 [facility] Hep B, Adol or Pedi 1999 Completed [facility] of Dosage 00:00:00 [facility] DTAP 1999 Completed [facility] of 00:00:00 [facility] HIB 4 Dose Schedule 1999 Completed [facility] of 00:00:00 [facility] Hep B, Adol or Pedi 1999 Completed [facility]ity of Dosage 00:00:00 [facility] Polio (IPV/OPV) 1999 Completed [facility] 00:00:00 [facility] DTAP 1999 Completed [facility] of 00:00:00 [facility] HIB 4 Dose Schedule 1999 Completed [facility] of 00:00:00 [facility] Hep B, Adol or Pedi 1999 Completed [facility] of Dosage 00:00:00 [facility] Polio (IPV/OPV) 1999 Completed [facility] 00:00:00 [facility] Polio (IPV/OPV) 1999 Completed [facility] 00:00:00 [facility] DTAP 1999 Completed [facility] 00:00:00 [facility] HIB 4 Dose Schedule 1999 Completed [facility] rsity of 00:00:00 [facility] Hep B, Adol or Pedi 1999 Completed [facility]ity of Dosage 00:00:00 [facility] Polio (IPV/OPV) 1999 Completed [facility] 00:00:00 [facility] DTAP 1999 Completed [facility] of 00:00:00 [facility] HIB 4 Dose Schedule 1999 Completed [facility]ive rsity of 00:00:00 [facility] Vital Signs Vital Name Observation Time Observation Value Comments Source Body height 2019-06-09 13:56:00 154.9 cm [facility]i ty of [facility] Body weight 2019-06-09 13:56:00 61.236 kg [facility] of [facility] BMI 2019-06-09 13:56:00 25.51 kg/m2 [facility] Body height 2019-06-09 13:56:00 154.9 cm [facility] Body weight 2019-06-09 13:56:00 61.236 kg [facility]i [facility] of [facility] BMI 2019-06-09 13:56:00 25.51 kg/m2 Universi ty of [facility] Systolic blood 2019-05-03 15:48:00 118 mm[Hg] Univer sity of pressure [facility] Diastolic blood 2019-05-03 15:48:00 76 mm[Hg] Unive rsity of pressure [facility] Heart rate 2019-05-03 15:48:00 68 /min [facility] of [facility] Body temperature 2019-05-03 15:48:00 36.83 [place] Univ ers[facility] of [facility] Respiratory rate 2019-05-03 15:48:00 16 /min Univ ersity of [facility] Body weight 2019-05-03 15:48:00 61.236 kg Universi ty of [facility] Systolic blood 2019-05-03 15:48:00 118 mm[Hg] Univer sity of pressure [facility] Diastolic blood 2019-05-03 15:48:00 76 mm[Hg] Unive rsity of pressure [facility] Heart rate 2019-05-03 15:48:00 68 /min [facility] Body temperature 2019-05-03 15:48:00 36.83 [facility] [facility] 2019-05-03 15:48:00 16 /min [facility] Body weight 2019-05-03 15:48:00 61.236 kg [facility] Procedures Procedure Date / Time Performed Performing Clinician Sour e ASSIGNMENT OF BENEFITS 2019-06-11 15:41:03 Doctor Unassigned, No [facility] GARDASIL 9 (HPV 9V) 2019-05-03 16:26:10 Nano Gonzáles [facility] Encounters Start End Encounter Admission Attending Care Care Encounter Source Date/Time Date/Time Type Type Clinicians Facility Department ID 2020-02-13 2020-02-13 Outpatient [facility] PDPFFIB QWI COH 00:00:00 00:00:00 [id number] 2020-01-02 2020-01-02 Outpatient R JOLYNN [facility] [id number] Univers 10:00:00 10:00:00 [facility] 2019-12-28 2019-12-28 [facility] [id number] Univers 13:45:00 13:45:00 [facility] 2019-12-07 2019-12-07 Outpatient R JOLYNN [facility] [id number] Univers 13:00:00 13:00:00 [facility] 2019-06-13 2019-06-13 Outpatient R [facility] [id number] Univers 14:00:00 14:00:00 [facility] 2019-06-13 2019-06-13 Telephone Pcp [facility] [id number] 00:00:00 00:00:00 Patient Julien [id number] Does Not Sahil [id number] Have A Professio [phone] [place] [address] Building 2019-06-13 2019-06-13 Case Andreia James [facility] [id number] 00:00:00 00:00:00 Management Cam [place] [id number] [place] [id number] Professio [phone] [address] 2019-06-13 2019-06-13 Telephone Pcp, [facility] [id number] Univers 00:00:00 00:00:00 Patient [place] [id number] i ty of Does Not [place] [id number] Alberto as Have A Professio [phone] Sc dical [address] 2019-06-13 2019-06-13 Case Andreia James [facility] [id number] Univers 00:00:00 00:00:00 Management Cam [place] [id number] [id number] [phone] [address] 2019-06-11 2019-06-11 Outpatient R [facility] [id number] Univers 11:30:00 11:30:00 ity of [facility] 2019-06-11 2019-06-11 Customer Complaint Clerk Lady, [facility] [id number] 10:45:08 11:00:08 Visit Lab Main [place] [id number] [place] [id number] Professio [phone] [address] 2019-06-11 2019-06-11 Customer Complaint Clerk Lady, Adc Lab Main [facility] [id number] [facility] 10:45:08 11:00:08 Visit Andreia James [place] [id number] [place]y [id number] [phone] Sc dic[address] 2019-06-11 2019-06-11 Orders Doctor RODRIGUEZ [id number] 00:00:00 00:00:00 Only Unassigned, EDMUNDO [id number] [facility] [id number] [id number] 009 2019-06-11 2019-06-11 Orders Doctor RODRIGUEZ [id number] Univers 00:00:00 00:00:00 Only Unassigned, EDMUNDO [id number] ity of [place] [facility] [id number] Alberto as [phone] [address] 2019-06-09 2019-06-09 Customer Complaint Clerk 2, Adc Lab [facility] [id number] 13:04:36 13:19:36 Visit [place] [id number] [place] [id number] Professio [phone] [address] 2019-06-09 2019-06-09 Customer Complaint Clerk 2, [facility] [id number] [facility] 13:04:36 13:19:36 Visit Andreia James [place] [id number] ity [id number] [phone] Sc dic[address] 2019-06-09 2019-06-09 [facility] [id number] 08:07:08 10:52:20 ne Visit Donnell [place] [id number] [place] [id number] Professio [phone] [address] 2019-06-09 2019-06-09 Telemedici James Andreia [facility] [id number] [facility] 08:07:08 10:52:20 ne Visit Donnell [place] [id number] ity [id number] [phone] [address] 2019-06-09 2019-06-09 Outpatient R ERIKA ANDREIA [facility] [id number] Univers 10:00:00 10:00:00 ity of [facility] 2019-05-31 2019-05-31 Telephone Nurse, [facility] [id number] 00:00:00 00:00:00 [facility] [place] [id number] Health [place] [id number] Professio [phone] [address] 2019-05-31 2019-05-31 Telephone Nurse, Bhavna [facility] [id number] [facility] 00:00:00 00:00:00 Women's [place]ien [id number] i ty of Health [id number] [phone] [address] 2019-05-03 2019-05-03 Office Jolynn [facility] [id number] 10:44:19 11:28:14 Visit Nano [place] [id number] [place] [id number] Professio [phone] [address] 2019-05-03 2019-05-03 Office Jolynn [facility] [id number] [facility] 10:44:19 11:28:14 Visit Nano [place] [id number] i ty of [id number] [place] [phone] [address] 2019-05-03 2019-05-03 Outpatient R JOLYNN [facility] [id number] Univers 10:45:00 10:45:00 NANO maldonado [facility] 2019-01-18 2019-01-18 Outpatient R ANDREIA JAMES [facility] [id number] Univers 15:00:00 15:29:41 joel [facility] 2018-12-06 2018-12-06 Outpatient R JOLYNN [facility] [id number] Univers 10:30:00 12:05:26 NANO brant [facility] Results This patient has no known results.
--- NOTE | 2022-02-28 21:48 | RAD REPORT ---
EXAM DESCRIPTION: RAD - Ankle Left 3 View - 02/28/2022 9:36 pm CLINICAL HISTORY: PAIN COMPARISON: No comparisons FINDINGS: No fracture, dislocation or periosteal reaction. No joint effusion seen. No joint space na rrowing. Lateral soft tissue swelling is present. IMPRESSION: Soft tissue swelling with no left ankle fracture.
--- NOTE | 2022-03-01 00:02 | ER ---
Nurse's Notes [facility] Name: Pippa Lopez Age: 21 yrs Sex: Female : 2000 Arrival Date: 02/28/2022 Time: 20:28 Bed 12 Private MD: Diagnosis: Sprain of ankle Presentation: 02/28 21:10 Chief complaint: Patient states: left ankle pain after twisting her ankle while running kb3 after her child. Coronavirus screen: Vaccine status: Patient reports receiving the 2nd dose of the covid vaccine. Client denies travel out of the [place] in the last 14 days. Ebola Screen: Patient negative for fever greater than or equal to 101.5 degrees Fahrenheit, and additional compatible Ebola Virus Disease symptoms Patient denies exposure to infectious person. Patient denies travel to an Ebola-affected area in the 21 days before illness onset. Initial Sepsis Screen: Does the patient meet any 2 criteria? No. Patient's initial sepsis screen is negative. Does the patient have a suspected source of infection? No. Patient's initial sepsis screen is negative. Risk Assessment: Do you want to hurt yourself or someone else? Patient reports no desire to harm self or others. Onset of symptoms was February 28, 2022 at 20:00. 21:10 Method Of Arrival: EMS: [facility] kb3 21:10 Acuity: ELVIRA 4 kb3 Triage Assessment: 21:12 General: Appears in no apparent distress. uncomfortable, Behavior is calm, cooperative. kb3 Pain: Complains of pain in left lateral malleolus, left medial malleolus and dorsum of left foot Pain does not radiate. Pain currently is 10 out of 10 on a pain scale. Injury Description: twisted ankle. 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 - Social history:: Smoking status: Patient/guardian denies using tobacco, Stopped _ months ago 2. Screenin:[address] [facility] ED Fall Risk Assessment (Adult) History of falling in the last 3 months, em6 including since admission Yes- single mechanical fall (1 pt) Confusion or Disorientation No (0 pts) Intoxicated or Sedated No (0 pts) Impaired Gait Yes (1 pt) Mobility Assist Device Used Yes (1 pt) Altered Elimination No (0 pt) Score/Fall Risk Level 3 or more points = High Risk Oriented to surroundings, Maintained a safe environment, Educated pt \T\ family on fall prevention, incl call for assistance when getting out of bed, Assessed \T\ reinforced patient's understanding of fall precautions, Provided non-skid footwear, Hourly rounding (assess needs \T\ fall precautionary measures) done, Used ambulatory aids as needed (educated on \T\ assisted with), Used gait belt as appropriate Implemented a Fall Risk Plan of Care, Apply high fall risk patient identification: yellow non skid footwear/ fall signage, Offered frequent toileting (1:1 observation), Remained with patient while ambulating. Abuse screen: Denies threats or abuse. Nutritional screening: No deficits noted. Tuberculosis screening: No symptoms or risk factors identified. Assessment: 21:07 General: Appears in no apparent distress. Behavior is cooperative. Pain: Complains of em6 pain in dorsum of left foot and left medial malleolus and left lateral malleolus and left foot Pain does not radiate. Pain currently is 3 out of 10 on a pain scale. Quality of pain is described as sharp. Neuro: Level of Consciousness is awake, alert, obeys commands, Oriented to person, place, time, situation. Cardiovascular: Patient's skin is warm and dry. Respiratory: Airway is patent. GI: No signs and/or symptoms were reported involving the gastrointestinal system. : No signs and/or symptoms were reported regarding the genitourinary system. EENT: No signs and/or symptoms were reported regarding the EENT system. Derm: No signs and/or symptoms reported regarding the dermatologic system. Musculoskeletal: Circulation, motion, and sensation intact. Capillary refill < 3 seconds, Range of motion: intact in all extremities. 22:10 Reassessment: Patient appears in no apparent distress at this time. No changes from em6 previously documented assessment. Patient and/or family updated on plan of care and expected duration. Pain level reassessed. Patient is alert, oriented x 3, equal unlabored respirations, skin warm/dry/pink. 23:06 Reassessment: Patient appears in no apparent distress at this time. No changes from em6 previously documented assessment. Patient and/or family updated on plan of care and expected duration. Pain level reassessed. Patient is alert, oriented x 3, equal unlabored respirations, skin warm/dry/pink. 03/01 00:32 Reassessment: Patient is alert, oriented x 3, equal unlabored respirations, skin bb warm/dry/pink. pt instructed on crutch walking and demonstrated adequate technique. Pt verbalized understanding of and agrees to plan of care discharge instructions given. Vital Signs: 02/28 21:10 BP 118 / 64; Pulse 81; Resp 20; Temp 98; Pulse Ox 99% ; Weight 72.57 kg; Height 5 ft. 1 kb3 in. (154.94 cm); Pain 10/10; 23:14 BP 108 / 59; Pulse 81; Resp 18; Pulse Ox 100% on R/A; em6 03/01 00:34 BP 124 / 74; Pulse 94; Resp 16 S; Pulse Ox 98% on R/A; bb 02/28 21:10 Body Mass Index 30.23 (72.57 kg, 154.94 cm) kb3 ED Course: 02/28 20:28 Patient arrived in ED. as 20:28 [facility]C [facility] kb 20:28 Adela Diaz MD is Attending Physician. kb 21:07 Sabrina Grajeda, CHITRA is Primary Nurse. em6 21:07 Bed in low position. Call light in reach. Side rails up X 1. Pulse ox on. NIBP on. Warm em6 blanket given. 21:12 Triage completed. kb3 21:12 Arm band placed on right wrist. Patient placed in an exam room, on a stretcher. kb3 21:37 Ankle Left 3 View XRAY In Process Unspecified. EDMS 23:19 US OB Limited In Process Unspecified. EDMS 03/01 00:34 Crutch training done. walking boot to left ankle. bb 00:35 No provider procedures requiring assistance completed. Patient did not have IV access bb during this emergency room visit. Administered Medications: No medications were administered Medication: 02/28 23:14 VIS not applicable for this client. em6 Outcome: 03/01 00:02 Discharge ordered by . payal 00:35 Discharged to home with crutches, with family. bb 00:35 Condition: stable 00:35 Discharge instructions given to patient, Instructed on discharge instructions, follow up and referral plans. crutch walking, Demonstrated understanding of instructions, follow-up care, crutch walking, splint care. 00:35 Patient left the ED. bb Signatures: Dispatcher [employer] EDMS Camila Crum, TASHA-C CROSSING GUARD-Jaqueline Jarvis Brenda RN RN bb Sabrina Grajeda RN RN em6 Dora Kinney RN RN kb3 Corrections: (The following items were deleted from the chart) 02/28 21:12 21:12 Home Meds: BCP's; kb3 kb3
--- NOTE | 2022-03-01 00:03 | EDPHYS ---
Physician Documentation [facility] Name: Pippa Lopez Age: 21 yrs Sex: Female : 2000 Arrival Date: 02/28/2022 Time: 20:28 Bed 12 Private MD: ED Physician Adela Diaz HPI: 03/01 00:12 This 21 yrs old Female presents to ER via EMS with complaints of Foot Injury. kb 00:12 The patient presents with decreased range of motion, pain, swelling, tenderness. The kb complaints affect the anterior aspect of left ankle. Context: resulted from the patient falling, while walking, the patient is not able to bear weight, the patient is not able to ambulate. Onset: The symptoms/episode began/occurred just prior to arrival. Modifying factors: The symptoms are alleviated by nothing. the symptoms are aggravated by movement, weight bearing. Associated signs and symptoms: Pertinent positives: swelling. Treatment prior to arrival includes: no previous treatment. Severity of symptoms: At their worst the symptoms were moderate, in the emergency department the symptoms are unchanged. The patient has not experienced similar symptoms in the past. The patient has not recently seen a physician. 00:15 Pt tripped and fell while running after her toddler. c/o left ankle pain. Reports she kb hit her abd as well so she wants to make sure the baby is ok. Denies abd pain or vaginal bleeding. 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 - Social history:: Smoking status: Patient/guardian denies using tobacco, Stopped _ months ago 2. ROS: 03/01 00:10 Constitutional: Negative for fever, chills, and weight loss. kb MS/extremity: Positive for injury or acute deformity, decreased range of motion, pain, swelling, tingling, of the anterior aspect of left ankle. All other systems are negative. Exam: 00:10 Constitutional: This is a well developed, well nourished patient who is awake, alert, kb and in no acute distress. Head/Face: Normocephalic, atraumatic. ENT: Moist Mucous membranes Cardiovascular: Regular rate and rhythm with a normal S1 and S2. No gallops, murmurs, or rubs. No pulse deficits. Respiratory: Respirations even and unlabored. No increased work of breathing. Talking in full sentences Abdomen/GI: Soft, non-tender. No distention Skin: Warm, dry with normal turgor. Normal color. Neuro: Awake and alert, GCS 15, oriented to person, place, time, and situation. Moves all extremities. Normal gait. Psych: Awake, alert, with orientation to person, place and time. Behavior, mood, and affect are within normal limits. 00:10 Musculoskeletal/extremity: Extremities: grossly normal except: noted in the anterior aspect of left ankle: pain, swelling, tenderness, ROM: limited active range of motion due to pain, in the anterior aspect of left ankle, Circulation is intact in all extremities. Sensation intact. Vital Signs: 02/28 21:10 BP 118 / 64; Pulse 81; Resp 20; Temp 98; Pulse Ox 99% ; Weight 72.57 kg; Height 5 ft. 1 kb3 in. (154.94 cm); Pain 10/10; 23:14 BP 108 / 59; Pulse 81; Resp 18; Pulse Ox 100% on R/A; em6 03/01 00:34 BP 124 / 74; Pulse 94; Resp 16 S; Pulse Ox 98% on R/A; bb 02/28 21:10 Body Mass Index 30.23 (72.57 kg, 154.94 cm) kb3 MDM: 02/28 20:32 Patient medically screened. kb 03/01 00:09 Differential diagnosis: closed fracture, Sprain. Data reviewed: vital signs, nurses kb notes. Counseling: I had a detailed discussion with the patient and/or guardian regarding: the historical points, exam findings, and any diagnostic results supporting the discharge/admit diagnosis, radiology results, the need for outpatient follow up, a orthopedic surgeon, to return to the emergency department if symptoms worsen or persist or if there are any questions or concerns that arise at home. ED course: I considered the following discharge prescriptions or medication management in the emergency department: Prescription analgesic medications considered but due to patient's status we decided patient will take [id number] Tylenol as needed after shared decision making History obtained from: EMS. 02/28 20:32 Order name: Ankle Left 3 View XRAY; Complete Time: 21:57 kb 02/28 21:57 Order name: US OB Limited kb 02/28 22:00 Order name: Crutches; Complete Time: 23:15 kb 02/28 22:11 Order name: Walking boot; Complete Time: 23:15 kb Administered Medications: No medications were administered Disposition Summary: 03/01/22 00:02 Discharge Ordered Location: Home kb Condition: Stable kb Diagnosis - Sprain of ankle kb Followup: kb - With: Emergency Department - When: As needed - Reason: Worsening of condition Followup: kb - With: Private Physician - When: 2 - 3 days - Reason: Recheck today's complaints, Continuance of care, Re-evaluation by your physician Discharge Instructions: - Discharge Summary Sheet kb - Ankle Sprain, [id number] kb Forms: - Medication Reconciliation Form kb - Thank You Letter kb - Antibiotic Education kb - Prescription Opioid Use kb Signatures: Dispatcher [employer] EDMS Camila Crum, METALLIC YARN SLITTING MACHINE OPERATOR-C METALLIC YARN SLITTING MACHINE OPERATOR-Dora Albrecht, RN RN kb3 Corrections: (The following items were deleted from the chart) 02/28 21:12 21:12 Home Meds: BCP's; kb3 kb3 22:11 22:00 Splint - Leg: Short Leg ordered. kb kb
[2022-03-01 02:09] VITALS: TEMP 98
[2022-03-01 02:11] VITALS: BP 124/74; O2SAT 98
--- NOTE | 2022-03-01 17:38 | RAD REPORT ---
EXAM DESCRIPTION: US - OB Limited - 02/28/2022 11:17 pm CLINICAL HISTORY: 21 years, Female, Abd pain COMPARISON: None. FINDINGS: Limited grayscale images of the female pelvis were performed. The maternal adnexa is were not imaged. There is a single living intrauterine in transverse presentation with multiple ultrasonogra phic measurements: BPD mean measurement of 4.26 cm, corresponding to an ultrasonographic gestational age of 18 weeks and 6 days. HC mean measurement of 15.86 cm corresponding to an ultrasonographic gestational age of 18 weeks and 5 days. AC mean measurement of 14.38 cm corresponding to an ultrasonographic gestational age of 19 weeks and 4 days. FL mean measurement of 3.06 cm corresponding to an ultrasonographic gestational age of 19 weeks and 3 days. Mean ultrasound gestational age of 19 weeks and 1 day with an estimated date of delivery of July 24. There was normal movement heart motion was detected at of 141 beats per minute. Placenta was posterior. The cervix is closed. PRAVEEN appropriate. IMPRESSION: Single living intrauterine in transverse presentation with average ultrasound gestational age of 19 weeks and 1 day. No gross abnormalities. Electronically signed by: Raj Rojo MD 02/28/2022 11:38 PM ORTHOPEDIC DESIGNER Due to temporary technical issues with the PACS/Fluency reporting system, reports are being signed by the in house radiologists without review as a courtesy to insure prompt reporting. The interpreting radiologist is fully responsible for the content of the report.
== END 2022-03-01 00:35 | disposition home or self-care (01) ==
LOC: ER 20:27
DX: O9A.212 Injury, poisoning and certain other consequences of external causes complicating pregnancy, second trimester (principal); S93.402A Sprain of unspecified ligament of left ankle, initial encounter; Z3A.19 19 weeks gestation of pregnancy
CPT/HCPCS: 76815; 99284

== ENCOUNTER 2024-03-26 23:36 | Emergency (ER) | payer OTHER ==
--- OUTSIDE RECORDS SUMMARY | 2024-03-26 23:40 | XMS REPORT | Continuity of Care Document ---
Author Name Unknown Address [address] [facility] [address]. [address] [place] [address] [facility] thconnect Address [address] [facility]. [address] [place] [address] Care Team Providers Care Real Estate Operations Manager Name Role Phone VENKAT FRANCO Scott Primary Care Physician SIS Snowden Attending Clinician Sis Marmolejo MD Attending Clinician [phone] GC_[email or web address]_Jhonny_C Attending Clinician Cynthia Martinez Attending Clinician Unavailable FOG_A_Provider Attending Clinician Unavailable ROSAURA PINEDO Attending Clinician ROSAURA Beckman Attending Clinician NANO Treviño Attending Clinician Unavailable Pcp, Patient Does Not Have A Attending Clinician Andreia James MD Attending Clinician [phone] Po, [facility] Lab Main Attending Clinician Keiry scott Doctor Unassigned, House Attending Clinician U abbyailmehran 2, [facility] Lab Attending Clinician Unavailable ANDREIA JAMES Attending Clinician Unavailable Nurse, [facility] Attending Clinician Un available Nano Neil PA-C Attending Clinician [phone] SIS DIAZ Admitting Clinician Unavailabl e GC_SWHASA_Jhonny_C Admitting Clinician Cynthia Martinez Admitting Clinician Unavailable FOG_A_Provider Admitting Clinician Unavailable ROSAURA PINEDO Admitting Clinician Annie nieto Payers Payer Name Policy Type Policy Number Effective Date Expirati on Date Source [employer] OUT OF NETWORK [id number] 2019 00:00:00 [employer] - CHOICE (POS II) [id number] 2003 00:00:00 [facility] [facility] (MEDICAID HMO) [id number] 2015 00:00:00 [employer] [id number] 2003 00:00:00 [place] [facility] [id number] 2022 00:00:00 Problems Condition Name Condition Details Condition Category Status Onset Date Resolution Date Last Treatment Date Treating Clinician Comments Source Abdominal pain affecting Abdominal pain affecting Disease Active 2-25 00:00: 00 [facility] Pelvic cramping in antepartum period Pelvic cramping in antepartum period Disease Active 06-08 00:00: 00 [facility] Mild intermitte nt asthma without complicati on Mild intermitte nt asthma without complicati on Disease Active 06-08 00:00: 00 [facility] Need for HPV vaccine Need for HPV vaccine Disease Active 09-18 00:00: 00 [facility] Vaginal irritation Vaginal irritation Disease Active 09-18 00:00: 00 [facility] History of urinary tract infection History of urinary tract infection Disease Active 09-18 00:00: 00 [facility] Oral contracept leslie use Oral contracept leslie use Disease Active 09-18 00:00: 00 [facility] Allergies, Adverse Reactions, Alerts Allergy Name Allergy Type Status Severity Reaction(s) Onset Date Inactive Date Treating Clinician Comments Source No Known Allergie s DA Active U 06-26 00:00: 00 [facility] latex DA Active [place] ITCHING 06-26 00:00: 00 [facility] No Known Allergie s DA Active U 06-25 00:00: 00 [facility] Sulfa (Sulfona mide Antibiot ics) Propensi ty to adverse reaction s Active Rash 05-20 00:00: 00 [facility] SULFA (SULFONA MIDE ANTIBIOT ICS) Drug Class Active Rash 05-20 00:00: 00 [facility] NO KNOWN ALLERGIE S Drug Class Active [facility] Social History Social Habit Start Date Stop Date Quantity Comments Source ASSERTION 2021-11-01 00:00:00 [facility] History of tobacco use Passive smoker [facility] 2023-03-16 00:00:00 2023-03-16 00:00:00 0 /d [facility] Exposure to SARS-CoV-2 (event) 2022-04-09 00:00:00 2022-04-19 15:10:00 Not sure [facility] History of Social function 2019-05-03 00:00:00 2019-05-03 00:00:00 [facility] Tobacco use and exposure 2018-12-06 00:00:00 2018-12-06 00:00:00 Smokeless tobacco non-user [facility] Alcohol Comment 2018-12-06 00:00:00 2018-12-06 00:00:00 every thursday [facility] Sex Assigned At 2000 00:00:00 2000 00:00:00 [facility] Smoking Status Start Date Stop Date Source Former Smoker [facility] Never smoked tobacco [facility] Medications Ordered Medication Name Filled Medication Name Start Date Stop Date Current Medication? Ordering Clinician Indication Dosage Frequency Signature (SIG) Comments Components Source HYDROcodone -acetaminop hen (NORCO 5) 5-325 mg tablet 1 tablet 03-16 23:45: 00 03-16 23:37 :00 No 1{tbl} 1 tablet, Oral, ONCE, 1 dose, On 1/22/24 at 1745, PATRICK [facility] levoFLOXaci n in D5W (LEVAQUIN) 750 mg/150 mL Piggyback 750 mg 03-16 22:15: 00 03-16 23:50 :00 No 750mg 750 mg, IV Piggyback, ONCE, 1 dose, On Thu03/16/23 at 1615, Administer over 90 Minutes, 150 mL
Reas on for Anti-Infec tive: Documented Infection< br>Documen sky Infection Site: Abdominal< br>Duratio n of Therapy: 7 days [facility] metroNIDAZO LE (FLAGYL) tablet 500 mg 03-16 22:15: 00 03-16 22:12 :00 No 500mg 500 mg, Oral, ONCE, 1 dose, On Thu03/16/23 at 1615, PATRICK
Re ason for Anti-Infec tive: Empiric Therapy for Suspected Infection< br>Empiric Therapy Site: Abdominal< br>Duratio n of therapy: Once (ED) [facility] iopamidol (ISOVUE 370-500 mL) injection 100 mL 03-16 21:30: 00 03-16 21:30 :00 No [id number] 100mL 100 mL, Intravenou s, ONCE, 1 dose, On Thu03/16/23 at 1530, Routine [facility] ketorolac (TORADOL) injection 30 mg 03-16 21:00: 00 03-16 20:16 :00 No 30mg 30 mg, Slow IV Push, ONCE, 1 dose, On Thu03/16/23 at 1500, Routine [facility] NaCl 0.9% (NS) bolus infusion 1,000 mL 03-16 19:45: 00 03-17 00:00 :00 No 1000mL at 999 mL/hr, 1,000 mL, IV Infusion, ONCE, 1 dose, On Thu03/16/23 at 1345, STAT [facility] dicyclomine (BENTYL) tablet 20 mg 03-16 19:45: 00 03-16 20:18 :00 No 20mg 20 mg, Oral, ONCE, 1 dose, On Thu03/16/23 at 1345, PATRICK [facility] ondansetron (ZOFRAN (PF)) injection 4 mg 03-16 19:45: 00 03-16 20:17 :00 No 4mg 4 mg, Slow IV Push, ONCE, 1 dose, On Thu03/16/23 at 1345, PATRICK [facility] maalox:diph enhydrAMINE :lidocaine 2 % viscous 1:1:1 ([facility]) oral suspension 15 mL 03-16 19:45: 00 03-16 20:17 :00 No 15mL 15 mL, Oral, ONCE, 1 dose, On Thu03/16/23 at 1345, Routine [facility] ondansetron 4 mg disintegrat ing tablet 03-16 00:00: 00 Yes [id number] 4mg Take 1 tablet by mouth every 8 (eight) hours as needed for Nausea and Vomiting (N/V) for up to 10 doses. [facility] metroNIDAZO LE 500 mg tablet 03-16 00:00: 00 Yes [id number] 500mg Take 1 tablet by mouth in the morning and 1 tablet in the evening. [facility] levoFLOXaci n 750 mg tablet 03-16 00:00: 00 03-24 05:59 :00 No [id number] 750mg Take 1 tablet by mouth every 24 (twenty-fo ur) hours for 7 days. [facility] dicyclomine 20 mg tablet 03-16 00:00: 00 03-22 05:59 :00 No [id number] 20mg Take 1 tablet by mouth 3 (three) times daily as needed for Abdominal pain for up to 5 days. [facility] vit calc,iron,f olic ( VITAMIN ORAL) 04-19 18:12: 55 Yes Take by mouth. [facility] vits62/FA/o m3/dha/epa ( GUMMY ORAL) 06-08 21:12: 59 06-08 00:00 :00 No Take by mouth. [facility] vits62/FA/o m3/dha/epa ( GUMMY ORAL) 06-08 14:00: 08 Yes Take by mouth. [facility] vit calc,iron,f olic ( VITAMIN ORAL) 06-08 14:00: 08 Yes Take by mouth. [facility] albuterol 90 mcg/actuati on inhaler 06-08 00:00: 00 Yes [id number] 2{puff} Inhale 2 Puffs every 6 (six) hours as needed for Wheezing, Shortness of Breath, Bronchospa sm or Chest tightness. [facility] proMETHazin e 25 mg tablet 2018-02 00:00: 00 Yes 1 tablet po 30 min before azithromyc in dose [facility] norgestimat e-ethinyl estradiol (TRINESSA LO) 0.18/0.215/ 0.25 mg-25 mcg tablet 10-16 00:00: 00 06-08 00:00 :00 No [id number] 1{tbl} Take 1 tablet by mouth daily. [facility] ciprofloxac in 250 mg tablet TAKE 1 TABLET BY MOUTH EVERY 12 HOURS ciprofloxac in 250 mg tablet TAKE 1 TABLET BY MOUTH EVERY 12 HOURS No ciprofloxa walter 250 mg tablet TAKE 1 TABLET BY MOUTH EVERY 12 HOURS [facility] cyclobenzap rine 5 mg tablet TAKE 1 TABLET BY MOUTH THREE TIMES DAILY NEEDED FOR MUSCLE SPASMS cyclobenzap rine 5 mg tablet TAKE 1 TABLET BY MOUTH THREE TIMES DAILY NEEDED FOR MUSCLE SPASMS No cyclobenza ana 5 mg tablet TAKE 1 TABLET BY MOUTH THREE TIMES DAILY NEEDED FOR MUSCLE SPASMS [facility] fluconazole 150 mg tablet TAKE 1 TABLET BY MOUTH FOR 1 DOSE fluconazole 150 mg tablet TAKE 1 TABLET BY MOUTH FOR 1 DOSE No fluconazol e 150 mg tablet TAKE 1 TABLET BY MOUTH FOR 1 DOSE [facility] ibuprofen 600 mg tablet TAKE 1 TABLET BY MOUTH EVERY 6 HOURS NEEDED FOR PAIN ibuprofen 600 mg tablet TAKE 1 TABLET BY MOUTH EVERY 6 HOURS NEEDED FOR PAIN No ibuprofen 600 mg tablet TAKE 1 TABLET BY MOUTH EVERY 6 HOURS NEEDED FOR PAIN [facility] nitrofurant oin monohydrate /macrocryst als 100 mg capsule TAKE 1 CAPSULE BY MOUTH EVERY 12 HOURS WITH FOOD FOR 5 DAYS nitrofurant oin monohydrate /macrocryst als 100 mg capsule TAKE 1 CAPSULE BY MOUTH EVERY 12 HOURS WITH FOOD FOR 5 DAYS No nitrofuran toin monohydrat e/macrocry stals 100 mg capsule TAKE 1 CAPSULE BY MOUTH EVERY 12 HOURS WITH FOOD FOR 5 DAYS [facility] triamcinolo ne acetonide 0.1 % topical cream APPLY TOPICALLY TO THE AFFECTED AREA THREE TIMES DAILY triamcinolo ne acetonide 0.1 % topical cream APPLY TOPICALLY TO THE AFFECTED AREA THREE TIMES DAILY No triamcinol one acetonide 0.1 % topical cream APPLY TOPICALLY TO THE AFFECTED AREA THREE TIMES DAILY [facility] aspirin 81 mg chewable tablet CHEW AND SWALLOW 1 TABLET BY MOUTH EVERY DAY aspirin 81 mg chewable tablet CHEW AND SWALLOW 1 TABLET BY MOUTH EVERY DAY No aspirin 81 mg chewable tablet CHEW AND SWALLOW 1 TABLET BY MOUTH EVERY DAY [facility] aspirin 81 mg tablet,yinka yed release TAKE 1 TABLET BY MOUTH EVERY NIGHT AT BEDTIME aspirin 81 mg tablet,yinka yed release TAKE 1 TABLET BY MOUTH EVERY NIGHT AT BEDTIME No aspirin 81 mg tablet,del ayed release TAKE 1 TABLET BY MOUTH EVERY NIGHT AT BEDTIME [facility] Immunizations Ordered Immunization Name Filled Immunization Name Date Status Comments Source 9 2019-05-03 00:00:00 Completed [facility] HPV9 2019-05-03 00:00:00 Completed [facility] HPV9 2019-05-03 00:00:00 Completed [facility] HPV9 2019-05-03 00:00:00 Completed [facility] HPV9 2019-05-03 00:00:00 Completed [facility] HPV9 2019-05-03 00:00:00 Completed [facility] HPV9 2019-05-03 00:00:00 Completed [facility] HPV9 2019-05-03 00:00:00 Completed [facility] HPV9 2019-05-03 00:00:00 Completed [facility] HPV9 2018-12-06 00:00:00 Completed [facility] HPV9 2018-12-06 00:00:00 Completed [facility] HPV9 2018-12-06 00:00:00 Completed [facility] HPV9 2018-12-06 00:00:00 Completed [facility] HPV9 2018-12-06 00:00:00 Completed [facility] HPV9 2018-12-06 00:00:00 Completed [facility] HPV9 2018-12-06 00:00:00 Completed [facility] HPV9 2018-12-06 00:00:00 Completed [facility] HPV9 2018-12-06 00:00:00 Completed [facility] HPV9 2015-09-19 00:00:00 Completed [facility] HPV9 2015-09-19 00:00:00 Completed [facility] HPV9 2015-09-19 00:00:00 Completed [facility] HPV9 2015-09-19 00:00:00 Completed [facility] HPV9 2015-09-19 00:00:00 Completed [facility] HPV9 2015-09-19 00:00:00 Completed [facility] HPV9 2015-09-19 00:00:00 Completed [facility] HPV9 2015-09-19 00:00:00 Completed [facility] HPV9 2015-09-19 00:00:00 Completed [facility] Meningococcal Polysaccharide (groups A, C, Y and W-135) conjugate vaccine (MCV4P) 2011-07-16 00:00:00 Completed [facility] TDAP (ADACEL) VACCINE 2011-07-16 00:00:00 Completed [facility] Meningococcal Polysaccharide (groups A, C, Y and W-135) conjugate vaccine (MCV4P) 2011-07-16 00:00:00 Completed [facility] TDAP (ADACEL) VACCINE 2011-07-16 00:00:00 Completed [facility] TDAP (ADACEL) VACCINE 2011-07-16 00:00:00 Completed [facility] Meningococcal Polysaccharide (groups A, C, Y and W-135) conjugate vaccine (MCV4P) 2011-07-16 00:00:00 Completed [facility] TDAP (ADACEL) VACCINE 2011-07-16 00:00:00 Completed [facility] Meningococcal Polysaccharide (groups A, C, Y and W-135) conjugate vaccine (MCV4P) 2011-07-16 00:00:00 Completed [facility] TDAP (ADACEL) VACCINE 2011-07-16 00:00:00 Completed [facility] Meningococcal Polysaccharide (groups A, C, Y and W-135) conjugate vaccine (MCV4P) 2011-07-16 00:00:00 Completed [facility] TDAP (ADACEL) VACCINE 2011-07-16 00:00:00 Completed [facility] Meningococcal Polysaccharide (groups A, C, Y and W-135) conjugate vaccine (MCV4P) 2011-07-16 00:00:00 Completed [facility] Meningococcal Polysaccharide (groups A, C, Y and W-135) conjugate vaccine (MCV4P) 2011-07-16 00:00:00 Completed [facility] TDAP (ADACEL) VACCINE 2011-07-16 00:00:00 Completed [facility] Meningococcal Polysaccharide (groups A, C, Y and W-135) conjugate vaccine (MCV4P) 2011-07-16 00:00:00 Completed [facility] TDAP (ADACEL) VACCINE 2011-07-16 00:00:00 Completed [facility] Meningococcal Polysaccharide (groups A, C, Y and W-135) conjugate vaccine (MCV4P) 2011-07-16 00:00:00 Completed [facility] TDAP (ADACEL) VACCINE 2011-07-16 00:00:00 Completed [facility] HEPATITIS A 2008-08-16 00:00:00 Completed [facility] Varicella (varivax)(chicken pox) 2008-08-16 00:00:00 Completed [facility] HEPATITIS A 2008-08-16 00:00:00 Completed [facility] Varicella (varivax)(chicken pox) 2008-08-16 00:00:00 Completed [facility] HEPATITIS A 2008-08-16 00:00:00 Completed [facility] Varicella (varivax)(chicken pox) 2008-08-16 00:00:00 Completed [facility] HEPATITIS A 2008-08-16 00:00:00 Completed [facility] Varicella (varivax)(chicken pox) 2008-08-16 00:00:00 Completed [facility] HEPATITIS A 2008-08-16 00:00:00 Completed [facility] HEPATITIS A 2008-08-16 00:00:00 Completed [facility] Varicella (varivax)(chicken pox) 2008-08-16 00:00:00 Completed [facility] HEPATITIS A 2008-08-16 00:00:00 Completed [facility] Varicella (varivax)(chicken pox) 2008-08-16 00:00:00 Completed [facility] HEPATITIS A 2008-08-16 00:00:00 Completed [facility] Varicella (varivax)(chicken pox) 2008-08-16 00:00:00 Completed [facility] HEPATITIS A 2008-08-16 00:00:00 Completed [facility] Varicella (varivax)(chicken pox) 2008-08-16 00:00:00 Completed [facility] Varicella (varivax)(chicken pox) 2008-08-16 00:00:00 Completed [facility] MMR 2003-05-24 00:00:00 Completed [facility] Polio (IPV/OPV) 2003-05-24 00:00:00 Completed [facility] Varicella (varivax)(chicken pox) 2003-05-24 00:00:00 Completed [facility] DTAP 2003-05-24 00:00:00 Completed [facility] MMR 2003-05-24 00:00:00 Completed [facility] Polio (IPV/OPV) 2003-05-24 00:00:00 Completed [facility] Varicella (varivax)(chicken pox) 2003-05-24 00:00:00 Completed [facility] DTAP 2003-05-24 00:00:00 Completed [facility] MMR 2003-05-24 00:00:00 Completed [facility] Polio (IPV/OPV) 2003-05-24 00:00:00 Completed [facility] Varicella (varivax)(chicken pox) 2003-05-24 00:00:00 Completed [facility] DTAP 2003-05-24 00:00:00 Completed [facility] DTAP 2003-05-24 00:00:00 Completed [facility] MMR 2003-05-24 00:00:00 Completed [facility] Polio (IPV/OPV) 2003-05-24 00:00:00 Completed [facility] Varicella (varivax)(chicken pox) 2003-05-24 00:00:00 Completed [facility] DTAP 2003-05-24 00:00:00 Completed [facility] MMR 2003-05-24 00:00:00 Completed [facility] Polio (IPV/OPV) 2003-05-24 00:00:00 Completed [facility] Varicella (varivax)(chicken pox) 2003-05-24 00:00:00 Completed [facility] DTAP 2003-05-24 00:00:00 Completed [facility] MMR 2003-05-24 00:00:00 Completed [facility] Polio (IPV/OPV) 2003-05-24 00:00:00 Completed [facility] Varicella (varivax)(chicken pox) 2003-05-24 00:00:00 Completed [facility] MMR 2003-05-24 00:00:00 Completed [facility] DTAP 2003-05-24 00:00:00 Completed [facility] MMR 2003-05-24 00:00:00 Completed [facility] Polio (IPV/OPV) 2003-05-24 00:00:00 Completed [facility] Varicella (varivax)(chicken pox) 2003-05-24 00:00:00 Completed [facility] DTAP 2003-05-24 00:00:00 Completed [facility] Polio (IPV/OPV) 2003-05-24 00:00:00 Completed [facility] MMR 2003-05-24 00:00:00 Completed [facility] Polio (IPV/OPV) 2003-05-24 00:00:00 Completed [facility] Varicella (varivax)(chicken pox) 2003-05-24 00:00:00 Completed [facility] Varicella (varivax)(chicken pox) 2003-05-24 00:00:00 Completed [facility] DTAP 2003-05-24 00:00:00 Completed [facility] HIB 4 Dose Schedule 2001-01-22 00:00:00 Completed [facility] Pneumococcal 13 Conjugate, PCV13 (Prevnar 13) 2001-01-22 00:00:00 Completed [facility] HIB 4 Dose Schedule 2001-01-22 00:00:00 Completed [facility] Pneumococcal 13 Conjugate, PCV13 (Prevnar 13) 2001-01-22 00:00:00 Completed [facility] HIB 4 Dose Schedule 2001-01-22 00:00:00 Completed [facility] Pneumococcal 13 Conjugate, PCV13 (Prevnar 13) 2001-01-22 00:00:00 Completed [facility] HIB 4 Dose Schedule 2001-01-22 00:00:00 Completed [facility] Pneumococcal 13 Conjugate, PCV13 (Prevnar 13) 2001-01-22 00:00:00 Completed [facility] HIB 4 Dose Schedule 2001-01-22 00:00:00 Completed [facility] HIB 4 Dose Schedule 2001-01-22 00:00:00 Completed [facility] Pneumococcal 13 Conjugate, PCV13 (Prevnar 13) 2001-01-22 00:00:00 Completed [facility] HIB 4 Dose Schedule 2001-01-22 00:00:00 Completed [facility] Pneumococcal 13 Conjugate, PCV13 (Prevnar 13) 2001-01-22 00:00:00 Completed [facility] HIB 4 Dose Schedule 2001-01-22 00:00:00 Completed [facility] Pneumococcal 13 Conjugate, PCV13 (Prevnar 13) 2001-01-22 00:00:00 Completed [facility] Pneumococcal 13 Conjugate, PCV13 (Prevnar 13) 2001-01-22 00:00:00 Completed [facility] HIB 4 Dose Schedule 2001-01-22 00:00:00 Completed [facility] Pneumococcal 13 Conjugate, PCV13 (Prevnar 13) 2001-01-22 00:00:00 Completed [facility] Polio (IPV/OPV) 2000-11-27 00:00:00 Completed [facility] DTAP 2000-11-27 00:00:00 Completed [facility] Polio (IPV/OPV) 2000-11-27 00:00:00 Completed [facility] DTAP 2000-11-27 00:00:00 Completed [facility] Polio (IPV/OPV) 2000-11-27 00:00:00 Completed [facility] DTAP 2000-11-27 00:00:00 Completed [facility] DTAP 2000-11-27 00:00:00 Completed [facility] Polio (IPV/OPV) 2000-11-27 00:00:00 Completed [facility] DTAP 2000-11-27 00:00:00 Completed [facility] Polio (IPV/OPV) 2000-11-27 00:00:00 Completed [facility] DTAP 2000-11-27 00:00:00 Completed [facility] Polio (IPV/OPV) 2000-11-27 00:00:00 Completed [facility] DTAP 2000-11-27 00:00:00 Completed [facility] Polio (IPV/OPV) 2000-11-27 00:00:00 Completed [facility] Polio (IPV/OPV) 2000-11-27 00:00:00 Completed [facility] DTAP 2000-11-27 00:00:00 Completed [facility] Polio (IPV/OPV) 2000-11-27 00:00:00 Completed [facility] DTAP 2000-11-27 00:00:00 Completed [facility] MMR 2000-08-20 00:00:00 Completed [facility] MMR 2000-08-20 00:00:00 Completed [facility] MMR 2000-08-20 00:00:00 Completed [facility] MMR 2000-08-20 00:00:00 Completed [facility] MMR 2000-08-20 00:00:00 Completed [facility] MMR 2000-08-20 00:00:00 Completed [facility] MMR 2000-08-20 00:00:00 Completed [facility] MMR 2000-08-20 00:00:00 Completed [facility] MMR 2000-08-20 00:00:00 Completed [facility] HIB 4 Dose Schedule 2000-06-03 00:00:00 Completed [facility] Hep B, Adol or Pedi Dosage 2000-06-03 00:00:00 Completed [facility] Pneumococcal 13 Conjugate, PCV13 (Prevnar 13) 2000-06-03 00:00:00 Completed [facility] HIB 4 Dose Schedule 2000-06-03 00:00:00 Completed [facility] Hep B, Adol or Pedi Dosage 2000-06-03 00:00:00 Completed [facility] Pneumococcal 13 Conjugate, PCV13 (Prevnar 13) 2000-06-03 00:00:00 Completed [facility] HIB 4 Dose Schedule 2000-06-03 00:00:00 Completed [facility] Hep B, Adol or Pedi Dosage 2000-06-03 00:00:00 Completed [facility] Pneumococcal 13 Conjugate, PCV13 (Prevnar 13) 2000-06-03 00:00:00 Completed [facility] HIB 4 Dose Schedule 2000-06-03 00:00:00 Completed [facility] Hep B, Adol or Pedi Dosage 2000-06-03 00:00:00 Completed [facility] Pneumococcal 13 Conjugate, PCV13 (Prevnar 13) 2000-06-03 00:00:00 Completed [facility] HIB 4 Dose Schedule 2000-06-03 00:00:00 Completed [facility] HIB 4 Dose Schedule 2000-06-03 00:00:00 Completed [facility] Hep B, Adol or Pedi Dosage 2000-06-03 00:00:00 Completed [facility] Pneumococcal 13 Conjugate, PCV13 (Prevnar 13) 2000-06-03 00:00:00 Completed [facility] HIB 4 Dose Schedule 2000-06-03 00:00:00 Completed [facility] Hep B, Adol or Pedi Dosage 2000-06-03 00:00:00 Completed [facility] Hep B, Adol or Pedi Dosage 2000-06-03 00:00:00 Completed [facility] Pneumococcal 13 Conjugate, PCV13 (Prevnar 13) 2000-06-03 00:00:00 Completed [facility] HIB 4 Dose Schedule 2000-06-03 00:00:00 Completed [facility] Hep B, Adol or Pedi Dosage 2000-06-03 00:00:00 Completed [facility] Pneumococcal 13 Conjugate, PCV13 (Prevnar 13) 2000-06-03 00:00:00 Completed [facility] Pneumococcal 13 Conjugate, PCV13 (Prevnar 13) 2000-06-03 00:00:00 Completed [facility] HIB 4 Dose Schedule 2000-06-03 00:00:00 Completed [facility] Hep B, Adol or Pedi Dosage 2000-06-03 00:00:00 Completed [facility] Pneumococcal 13 Conjugate, PCV13 (Prevnar 13) 2000-06-03 00:00:00 Completed [facility] Pneumococcal 13 Conjugate, PCV13 (Prevnar 13) 2000-03-11 00:00:00 Completed [facility] Pneumococcal 13 Conjugate, PCV13 (Prevnar 13) 2000-03-11 00:00:00 Completed [facility] Pneumococcal 13 Conjugate, PCV13 (Prevnar 13) 2000-03-11 00:00:00 Completed [facility] Pneumococcal 13 Conjugate, PCV13 (Prevnar 13) 2000-03-11 00:00:00 Completed [facility] Pneumococcal 13 Conjugate, PCV13 (Prevnar 13) 2000-03-11 00:00:00 Completed [facility] Pneumococcal 13 Conjugate, PCV13 (Prevnar 13) 2000-03-11 00:00:00 Completed [facility] Pneumococcal 13 Conjugate, PCV13 (Prevnar 13) 2000-03-11 00:00:00 Completed [facility] Pneumococcal 13 Conjugate, PCV13 (Prevnar 13) 2000-03-11 00:00:00 Completed [facility] Pneumococcal 13 Conjugate, PCV13 (Prevnar 13) 2000-03-11 00:00:00 Completed [facility] Pneumococcal 13 Conjugate, PCV13 (Prevnar 13) 1999 00:00:00 Completed [facility] DTAP 1999 00:00:00 Completed [facility] Pneumococcal 13 Conjugate, PCV13 (Prevnar 13) 1999 00:00:00 Completed [facility] DTAP 1999 00:00:00 Completed [facility] Pneumococcal 13 Conjugate, PCV13 (Prevnar 13) 1999 00:00:00 Completed [facility] DTAP 1999 00:00:00 Completed [facility] DTAP 1999 00:00:00 Completed [facility] Pneumococcal 13 Conjugate, PCV13 (Prevnar 13) 1999 00:00:00 Completed [facility] DTAP 1999 00:00:00 Completed [facility] Pneumococcal 13 Conjugate, PCV13 (Prevnar 13) 1999 00:00:00 Completed [facility] DTAP 1999 00:00:00 Completed [facility] Pneumococcal 13 Conjugate, PCV13 (Prevnar 13) 1999 00:00:00 Completed [facility] DTAP 1999 00:00:00 Completed [facility] Pneumococcal 13 Conjugate, PCV13 (Prevnar 13) 1999 00:00:00 Completed [facility] Pneumococcal 13 Conjugate, PCV13 (Prevnar 13) 1999 00:00:00 Completed [facility] DTAP 1999 00:00:00 Completed [facility] Pneumococcal 13 Conjugate, PCV13 (Prevnar 13) 1999 00:00:00 Completed [facility] DTAP 1999 00:00:00 Completed [facility] HIB 4 Dose Schedule 1999 00:00:00 Completed [facility] Hep B, Adol or Pedi Dosage 1999 00:00:00 Completed [facility] Polio (IPV/OPV) 1999 00:00:00 Completed [facility] DTAP 1999 00:00:00 Completed [facility] HIB 4 Dose Schedule 1999 00:00:00 Completed [facility] Hep B, Adol or Pedi Dosage 1999 00:00:00 Completed [facility] Polio (IPV/OPV) 1999 00:00:00 Completed [facility] DTAP 1999 00:00:00 Completed [facility] HIB 4 Dose Schedule 1999 00:00:00 Completed [facility] Hep B, Adol or Pedi Dosage 1999 00:00:00 Completed [facility] DTAP 1999 00:00:00 Completed [facility] Polio (IPV/OPV) 1999 00:00:00 Completed [facility] DTAP 1999 00:00:00 Completed [facility] HIB 4 Dose Schedule 1999 00:00:00 Completed [facility] Hep B, Adol or Pedi Dosage 1999 00:00:00 Completed [facility] Polio (IPV/OPV) 1999 00:00:00 Completed [facility] HIB 4 Dose Schedule 1999 00:00:00 Completed [facility] DTAP 1999 00:00:00 Completed [facility] HIB 4 Dose Schedule 1999 00:00:00 Completed [facility] Hep B, Adol or Pedi Dosage 1999 00:00:00 Completed [facility] Polio (IPV/OPV) 1999 00:00:00 Completed [facility] DTAP 1999 00:00:00 Completed [facility] Hep B, Adol or Pedi Dosage 1999 00:00:00 Completed [facility] HIB 4 Dose Schedule 1999 00:00:00 Completed [facility] Hep B, Adol or Pedi Dosage 1999 00:00:00 Completed [facility] Polio (IPV/OPV) 1999 00:00:00 Completed [facility] DTAP 1999 00:00:00 Completed [facility] HIB 4 Dose Schedule 1999 00:00:00 Completed [facility] Hep B, Adol or Pedi Dosage 1999 00:00:00 Completed [facility] Polio (IPV/OPV) 1999 00:00:00 Completed [facility] Polio (IPV/OPV) 1999 00:00:00 Completed [facility] DTAP 1999 00:00:00 Completed [facility] HIB 4 Dose Schedule 1999 00:00:00 Completed [facility] Hep B, Adol or Pedi Dosage 1999 00:00:00 Completed [facility] Polio (IPV/OPV) 1999 00:00:00 Completed [facility] DTAP 1999 00:00:00 Completed [facility] Hep B, Adol or Pedi Dosage 1999 00:00:00 Completed [facility] Polio (IPV/OPV) 1999 00:00:00 Completed [facility] DTAP 1999 00:00:00 Completed [facility] HIB 4 Dose Schedule 1999 00:00:00 Completed [facility] Hep B, Adol or Pedi Dosage 1999 00:00:00 Completed [facility] Polio (IPV/OPV) 1999 00:00:00 Completed [facility] DTAP 1999 00:00:00 Completed [facility] DTAP 1999 00:00:00 Completed [facility] HIB 4 Dose Schedule 1999 00:00:00 Completed [facility] Hep B, Adol or Pedi Dosage 1999 00:00:00 Completed [facility] Polio (IPV/OPV) 1999 00:00:00 Completed [facility] DTAP 1999 00:00:00 Completed [facility] HIB 4 Dose Schedule 1999 00:00:00 Completed [facility] Hep B, Adol or Pedi Dosage 1999 00:00:00 Completed [facility] HIB 4 Dose Schedule 1999 00:00:00 Completed [facility] Polio (IPV/OPV) 1999 00:00:00 Completed [facility] DTAP 1999 00:00:00 Completed [facility] HIB 4 Dose Schedule 1999 00:00:00 Completed [facility] Hep B, Adol or Pedi Dosage 1999 00:00:00 Completed [facility] Polio (IPV/OPV) 1999 00:00:00 Completed [facility] Hep B, Adol or Pedi Dosage 1999 00:00:00 Completed [facility] DTAP 1999 00:00:00 Completed [facility] HIB 4 Dose Schedule 1999 00:00:00 Completed [facility] Hep B, Adol or Pedi Dosage 1999 00:00:00 Completed [facility] Polio (IPV/OPV) 1999 00:00:00 Completed [facility] DTAP 1999 00:00:00 Completed [facility] HIB 4 Dose Schedule 1999 00:00:00 Completed [facility] Hep B, Adol or Pedi Dosage 1999 00:00:00 Completed [facility] Polio (IPV/OPV) 1999 00:00:00 Completed [facility] Polio (IPV/OPV) 1999 00:00:00 Completed [facility] DTAP 1999 00:00:00 Completed [facility] HIB 4 Dose Schedule 1999 00:00:00 Completed [facility] Hep B, Adol or Pedi Dosage 1999 00:00:00 Completed [facility] Polio (IPV/OPV) 1999 00:00:00 Completed [facility] DTAP 1999 00:00:00 Completed [facility] HIB 4 Dose Schedule 1999 00:00:00 Completed [facility] HPV9 Unknown Completed [facility] TDAP (ADACEL) VACCINE Unknown Completed [facility] DTAP Unknown Completed [facility] HIB 4 Dose Schedule Unknown Completed [facility] HEPATITIS A Unknown Completed [facility] Hep B, Adol or Pedi Dosage Unknown Completed [facility] Meningococcal Polysaccharide (groups A, C, Y and W-135) conjugate vaccine (MCV4P) Unknown Completed [facility] MMR Unknown Completed [facility] Pneumococcal 13 Conjugate, PCV13 (Prevnar 13) Unknown Completed [facility] Polio (IPV/OPV) Unknown [facility]pleted [facility] Varicella (varivax)(chicken pox) Unknown Completed [facility] Vital Signs Vital Name Observation Time Observation Value Comments S itzel Systolic blood pressure 2023-03-16 23:37:00 103 mm[Hg] [facility] hospital Diastolic blood pressure 2023-03-16 23:37:00 60 mm[Hg] [facility] acute hospital Heart rate 2023-03-16 23:37:00 96 /min [facility] 2023-03-16 23:37:00 18 /min [facility] Oxygen saturation in Arterial blood by Pulse oximetry 2023-03-16 23:37:00 96 /min [facility] acute hospital Body temperature 2023-03-16 22:20:00 37.22 Shelley [facility] Body height 2023-03-16 19:29:00 154.9 cm [facility] acute hospital Body weight 2023-03-16 19:29:00 69.854 kg [facility] acute hospital BMI 2023-03-16 19:29:00 29.10 kg/m2 [facility] Systolic blood pressure 2022-04-19 22:45:00 136 mm[Hg] [facility] acute hospital Diastolic blood pressure 2022-04-19 22:45:00 68 mm[Hg] General acute hospital Heart rate 2022-04-19 22:45:00 87 /min Unive [facility] Oxygen saturation in Arterial blood by Pulse oximetry 2022-04-19 22:45:00 100 /min [facility] acute hospital Body temperature 2022-04-19 21:30:00 36.11 [facility] Respiratory rate 2022-04-19 21:30:00 18 /min [facility] Body weight 2022-04-19 21:12:00 73.029 kg [facility] Body height 2019-06-09 13:56:00 154.9 cm [facility] Body weight 2019-06-09 13:56:00 61.236 kg [facility] BMI 2019-06-09 13:56:00 25.51 kg/m2 [facility] Body height 2019-06-09 13:56:00 154.9 cm [facility] acute [facility] Body weight 2019-06-09 13:56:00 61.236 kg [facility] acute hospital BMI 2019-06-09 13:56:00 25.51 kg/m2 [facility] acute hospital Systolic blood pressure 2019-05-03 15:48:00 118 mm[Hg] [facility] acute hospital Diastolic blood pressure 2019-05-03 15:48:00 76 mm[Hg] [facility] acute hospital Heart rate 2019-05-03 15:48:00 68 /min [facility] Body temperature 2019-05-03 15:48:00 36.83 [facility] Respiratory rate 2019-05-03 15:48:00 16 /min [facility] Body weight 2019-05-03 15:48:00 61.236 kg [facility] acute hospital Systolic blood pressure 2019-05-03 15:48:00 118 mm[Hg] [facility] acute hospital Diastolic blood pressure 2019-05-03 15:48:00 76 mm[Hg] [facility] acute hospital Heart rate 2019-05-03 15:48:00 68 /min [facility] Body temperature 2019-05-03 15:48:00 36.83 [facility] Respiratory rate 2019-05-03 15:48:00 16 /min [facility] Body weight 2019-05-03 15:48:00 61.236 kg [facility] acute hospital Procedures Procedure Date / Time Performed Performing Clinicia n Source COMP. METABOLIC PANEL (55605) 2023-03-16 21:58:00 Sis Diaz [facility] CT ABDOMEN PELVIS W CONTRAST 2023-03-16 20:37:00 Sis Diaz [facility] POCT TEST 2023-03-16 20:11:00 Ger Diaz [facility] LIPASE 2023-03-16 20:04:00 Sis Diaz [facility] CBC WITH DIFF 2023-03-16 20:04:00 [facility]is [facility] UR[facility] 2023-03-16 20:04:00 Sis Diaz [facility] RAPID INFLUENZA A/B 2023-03-16 20:04:00 Ger Diaz [facility] COVID-19 (ID NOW RAPID TESTING) 2023-03-16 20:04:00 Sis Diaz [facility] CONSENT/REFUSAL FOR DIAGNOSIS AND TREATMENT 2023-03-16 19:23:55 Doctor Unassigned, House [facility] [id number] 2022-06-26 00:00:00 CHAKR.07 [facility] [id number] 2022-06-26 00:00:00 CHAKR.07 [facility] ADC CLC OR LCC ONLY - WET PREP 2022-04-19 22:07:00 Rosaura Pinedo [facility] ASSIGNMENT OF BENEFITS 2022-04-19 21:08:20 Docto r Unassigned, House [facility] CONSENT/REFUSAL FOR DIAGNOSIS AND TREATMENT 2022-04-19 21:07:16 Doctor Unassigned, House [facility] ASSIGNMENT OF BENEFITS 2019-06-11 15:41:03 Docto r Unassigned, House [facility] GARDASIL 9 (HPV 9V) VACCINE 2019-05-03 16:26:10 Nano Neil [facility] Encounters Start Date/Time End Date/Time Encounter Type Admission Type Attending [facility] Care Facility Care Department Encounter ID Source 2023-03-16 13:31:00 2023-03-16 18:52:00 Emergency X SIS DIAZ [facility] ERT [id number] [facility] 2023-03-16 13:31:00 2023-03-16 18:52:00 Emergency Sis Diaz [facility] 1.2.840.114 350.1.13.10 4.2.7.2.686 [id number] [facility] 2022-07-10 00:00:00 2022-07-10 00:00:00 Outpatient GC_SWHASA_R amiviktorz_C [facility] [id number] [facility] 2022-06-26 12:58:00 2022-06-29 16:51:00 Inpatient Cynthia Chou [facility] OBPP [id number] [facility] 2022-06-25 10:50:00 2022-06-25 12:15:00 Emergency Cynthia Colon [facility] ANTHONY [id number] [facility] 2022-06-05 00:00:00 2022-06-05 00:00:00 Outpatient FOG_A_Provi ramon [facility]OSM AOSM [id number] [facility] 2022-06-05 00:00:00 2022-06-05 00:00:00 Paulo Ball MD: [address] [place] [phone] , Ph. [phone] [facility] [place] [facility] [place] [facility] FOG_Ofc [facility] [id number] [facility] 2022-06-04 00:00:00 2022-06-04 00:00:00 Outpatient FOG_A_Provi ramon AOSM AOSM [id number] [facility] 2022-05-21 00:00:00 2022-05-21 00:00:00 Outpatient FOG_A_Provi ramon AOSM AOSM [id number] [facility] 2022-04-19 15:16:00 2022-04-19 17:00:00 Outpatient X CARNEY-ROCIO S, ROSAURA CARNEY-ROCIO S, ROSAURA [facility] HERBERT [id number] [facility] 2022-04-19 15:16:00 2022-04-19 17:00:00 Emergency Carney-Rocio s, Rosaura [facility] 1.2.840.114 350.1.13.10 4.2.7.2.686 [id number] [facility] 2020-02-13 00:00:00 2020-02-13 00:00:00 Outpatient COH COH [id number] [facility] 2020-01-02 10:00:00 2020-01-02 10:00:00 Outpatient R NANO NEIL [facility] [id number] [facility] 2019-12-28 13:45:00 2019-12-28 13:45:00 [id number] 2019-12-07 13:00:00 2019-12-07 13:00:00 [facility] [id number] [facility] 2019-06-13 14:00:00 2019-06-13 14:00:00 Outpatient R [facility] [id number] [facility] 2019-06-13 00:00:00 2019-06-13 00:00:00 Telephone Pcp, Patient Does Not Have A [facility] 1.2.840.114 350.1.13.10 4.2.7.2.686 [id number] 2019-06-13 00:00:00 2019-06-13 00:00:00 Case Management Andreia James [facility] 1.2.840.114 350.1.13.10 4.2.7.2.686 [id number] 2019-06-13 00:00:00 2019-06-13 00:00:00 Telephone Pcp, Patient Does Not Have A [facility] 1.2.840.114 350.1.13.10 4.2.7.2.686 [id number] [facility] 2019-06-13 00:00:00 2019-06-13 00:00:00 Case Management Andreia James [facility] 1.2.840.114 350.1.13.10 4.2.7.2.686 [id number] 134 [id number] [facility] 2019-06-11 11:30:00 2019-06-11 11:30:00 Outpatient R [facility] [id number] [facility] 2019-06-11 10:45:08 2019-06-11 11:00:08 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, Adc 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 Main [facility] 1.2.840.114 350.1.13.10 4.2.7.2.686 [id number] 2019-06-11 10:45:08 2019-06-11 11:00:08 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 Pob, Adc Lab Main Andreia James [facility] 1.2.840.114 350.1.13.10 4.2.7.2.686 [id number] [facility] 2019-06-11 00:00:00 2019-06-11 00:00:00 Orders Only Doctor Unassigned, House [facility] 1.2.840.114 350.1.13.10 4.2.7.2.686 [id number] 2019-06-11 00:00:00 2019-06-11 00:00:00 Orders Only Doctor Unassigned, House [facility] 1.2.840.114 350.1.13.10 4.2.7.2.686 [id number] [facility] 2019-06-09 13:04:36 2019-06-09 13:19:36 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 2, Adc Lab [facility] 1.2.840.114 350.1.13.10 4.2.7.2.686 [id number] 2019-06-09 13:04:36 2019-06-09 13:19:36 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 2, Adc Lab Andreia James [facility] 1.2.840.114 350.1.13.10 4.2.7.2.686 [id number] [facility] 2019-06-09 08:07:08 2019-06-09 10:52:20 Telemedici ne Visit Andreia James [facility] 1.2.840.114 350.1.13.10 4.2.7.2.686 [id number] 2019-06-09 08:07:08 2019-06-09 10:52:20 Telemedici ne Visit Andreia James [facility] Sahil Claros [facility] 1.2.840.114 350.1.13.10 4.2.7.2.686 [id number] [facility] 2019-06-09 10:00:00 2019-06-09 10:00:00 Outpatient R ANDREIA JAMES [facility] [id number] [facility] 2019-05-31 00:00:00 2019-05-31 00:00:00 [facility] 1.2.840.114 350.1.13.10 4.2.7.2.686 [id number] 2019-05-31 00:00:00 2019-05-31 00:00:00 Telephone Nurse, [facility] 1.2.840.114 350.1.13.10 4.2.7.2.686 [id number] 134 [id number] [facility] 2019-05-03 10:44:19 2019-05-03 11:28:14 [facility] 1.2.840.114 350.1.13.10 4.2.7.2.686 [id number] 2019-05-03 10:44:19 2019-05-03 11:28:14 Office Visit Nano Neil [facility] 1.2.840.114 350.1.13.10 4.2.7.2.686 [id number] [facility] 2019-05-03 10:45:00 2019-05-03 10:45:00 Outpatient NANO KAUFFMAN [facility] [id number] [facility] 2019-01-18 15:00:00 2019-01-18 15:29:41 Outpatient ANDREIA PUENTE [facility] [id number] [facility] 2018-12-06 10:30:00 2018-12-06 12:05:26 Outpatient NANO KAUFFMAN [facility] [id number] [facility] Results Test Description Test Time Test Comments Results Result Co mments Source [facility] with [id number] 21:34:19* Test Item Value Reference Range Interpretation Comme nts WBC (test code = 6690-2) 11.46 See_Comment H [Automated messa ge] The system which generated this result transmitted reference range: 4.30 - 11.10 10*3/?L. The reference range was not used to interpret this result as normal/abnormal. RBC (test code = 789-8) 5.33 See_Comment H [Automated messa ge] The system which generated this result transmitted reference range: 3.93 - 5.25 10*6/?L. The reference range was not used to interpret this result as normal/abnormal. HGB (test code = 718-7) 16.3 g/dL 11.6-15.0 H HCT (test code = 4544-3) 46.9 % 35.7-45.2 H MCV (test code = 787-2) 88.0 fL 80.6-95.5 MCH (test code = 785-6) 30.6 pg 25.9-32.8 MCHC (test code = 786-4) 34.8 g/dL 31.6-35.1 RDW-SD (test code = 65227-6) 38.6 fL 39.0-49.9 L RDW-CV (test code = 788-0) 12.0 % 12.0-15.5 PLT (test code = 777-3) 115 See_Comment L [Automated messa ge] The system which generated this result transmitted reference range: 166 - 358 10*3/?L. The reference range was not used to interpret this result as normal/abnormal. MPV (test code = 22102-9) 10.8 fL 9.5-12.9 IPF % (test code = 2108141620) 2.4 % 1.3-7.7 Platelet count measured by fluorescence method. NRBC/100 WBC (test code = 2387602435) 0.2 See_Comment [Automated me ssage] The system which generated this result transmitted reference range: 0.0 - 10.0 /100 WBCs. The reference range was not used to interpret this result as normal/abnormal. NRBC x10^3 (test code = 0226255800) 0.02 See_Comment [Automated messa ge] The system which generated this result transmitted reference range: 10*3/?L. The reference range was not used to interpret this result as normal/abnormal. GRAN MAT (NEUT) % (test code = 770-8) 91.7 % IMM GRAN % (test code = 3274798483) 0.30 % LYMPH % (test code = 736-9) 5.1 % MONO % (test code = 5905-5) 2.4 % EOS % (test code = 713-8) 0.3 % BASO % (test code = 706-2) 0.2 % GRAN MAT x10^3(ANC) (test code = 1959102986) 10.49 10*3/uL 1.88-7.09 H IMM GRAN x10^3 (test code = 0994596897) 0.04 10*3/uL 0.00-0.06 LYMPH x10^3 (test code = 731-0) 0.59 10*3/uL 1.32-3.29 L MONO x10^3 (test code = 742-7) 0.28 10*3/uL 0.33-0.92 L EOS x10^3 (test code = 711-2) 0.04 10*3/uL 0.03-0.39 BASO x10^3 (test code = 704-7) 0.01-0.07 Lab Interpretation (test code = 65988-1) [facility]57* Test Item Value Reference Range Interpretation Comme nts LIPASE (test code = 4214419638) 121 U/L 0-220 Lab Interpretation (test cod e = 13118-9) Normal [facility] ABDOMEN PELVIS W [id number] 21:16:11EXAM: CT ABDOMEN AND PELVIS WITH CONTRAST HISTORY: vomiting, abdominal pain, eval for obstructive pattern COMPARISON: None. TECHNIQUE: Contiguous axial imaging was performed following administrationof intravenous contrast. Coronal and sagittal reconstructions wereobtained. FINDINGS: The lung bases are clear. The liver, spleen, gallbladder, pancreas, adrenal glands and kidneys arenormal. Scatteredfluid containing small bowel loops without significant dilatationand fluid within the right colon may be related to mild enterocolitis ordiarrheal disease. The appendix is normal. No bowel wall thickening orinflammatory change. No evidence of small bowel obstruction. Moderate fecalmaterial in the tr ansverse, descending and rectosigmoid colon. The uterus and adnexa are grossly normal. There is no free fluid orlymphadenopathy. The osseous structures are intact.[facility] [id number] 20:11:00 * Test Item Value Reference Range Interpretation Comme [facility] POCT PREG (test code = 1605) Negative On board controls acceptable with C Line (test code = 3574) Yes POCT PREG LOT # (test code = 3575) [id number] POCT PREG TEST DATE ( test code = 3576) 05/31/2024 Lab Interpretation (test cod e = 84281-2) Normal [facility] 16:36:00* Test Item Value Reference Range Interpretation Comme [facility] SURGICAL (test code = SR) R UN DATE: 07/02/22 [facility] PAGE 1 RUN TIME: 1636 Specimen Inquiry RUN USER: INTERFACE P ATIENT: JULIANNA RIBEIRO LOC: JOANNE U #: [id number] AGE/SX: ROOM: [facility] RE06/26/22REG DR: Cynthia Woods DO : 99 BED: A DIS: 06/29/22 STATUS: DIS IN TLOC: SPEC #: [id number] RECD: 06/27/22 STATUS: SOUT REQ #: [id number] ALTAGRACIA: 06/26/[address] [facility] [address]: Cynthia Woods DO ENTERED: 06/27/22 SP TYPE: SURGICAL OTHR DR: DOES_NOT KNOW ORDERED: ANATOMIC SPEC/3, SPEC TRACK, 86794/2, 55255 COPIES TO: DOES_NOT KNOW Cynthia Woods DO [address] [facility] [address] [place] [address] PROCEDURES: 64172 (06/27/2251) 47764 (06/27/22) TISSUES: A. PLACENTA, THIRD TRIMESTER (28 + WEEKS) B. FALLOPIAN TUBE, RIGHT C. FALLOPIAN TUBE, LEFT FINAL DIAGNOSIS A. 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 FALLOPIAN TUBE, RIGHT, SALPINGECTOMY: - Complete luminal cross-section present - Fimbriated end present - Decidualization, related C. FALLOPIAN TUBE, LEFT, SALPINGECTOMY: - Complete luminal cross-section present - Fimbriated end present Comment:The placental weight 450 g is between the 50th and 75th percentiles for the statedgestational age of 35 weeks. CONTINUED ON NEXT PAGE R UN DATE: 07/02/22 [facility] PAGE 2 RUN TIME: 1636 Specimen Inquiry RUN USER: INTERFACE S PEC #: [id number] PATIENT: JULIANNA RIBEIRO #[id number] (Continued) GROSS DESCRIPTION A) Received in formalin labeled with the patient's name and medical record number and"placenta", is a saha placenta with attached cord and membranes. The umbilical cordis 31.5 cm in total length, 1.4 to 2.0 cm in diameter, is eccentrically inserted 4 cm fromthe nearest placental edge, and has 2 false knots 11 cm and 12.5 cm from the disc. Thereare 7-8 coils in 10 cm of cord. Cross sectioning demonstrates 3 blood vessels. The membranes are frausto-burgess, thin, and translucent. They have marginal attachment andare ruptured 8 cm from the disc. The placental disc is ovoid shaped, measures 20.0 x 19.5x 2.5 cm, and weighs 450 grams without the membranes and cord. The surface isblue-burgess, smooth, and glistening, with focal white firm and thickened areas locatedcentrally and near the periphery (25% of total surface). The maternal surface appearscomplete. Serial sections through the disc show deep red-brown and spongy soft tissue withmultiple frausto firm thickened areas of discoloration along the surface ranging from 0.6to 2.2 cm in greatest dimension (4% of parenchyma) Battery Plate Remover sections are submitted as follows: A1: umbilical cordA2: membrane roll A3: cross section of maternal surfaceA4: Areas of discoloration B) Received in formalin labeled with patient's name, VANNESSA MICHAEL and labeled "right fallopiantube". Received with fimbria measuring 8.2 cm in length and ranging from 0.3 to 0.5 cm indiameter. The serosa is burgess, smooth and glistening and the fimbria is brown and lush. Serial sections through the tube reveal a patent appearing lumen. Battery Plate Remover sectionsare submitted in cassette B1. C) Received in formalin labeled with patient's name, MRN, and labeled "left fallopiantube". Received with fimbria measuring 6.0 cm in length and ranging from 0.5 to 1.1 cm indiameter. The serosa is burgess, smooth and glistening and the fimbria is brown and lush. Serial sections through the tube reveal a patent appearing lumen. Battery Plate Remover sectionsare submitted in cassette C1. 06/27/22 Technical component performed at [facility] [place] [address] Immunohistochemical stains and Special Stains are performed at [employer], [address], [place] [address] Unless gross only, the diagnosis is based upon microscopic examination. Immunohistochemistry: This test was developed and its performance characteristicsdetermined by this laboratory. It has not been approved nor does it need approval by [place] FDA. Appropriate positive and negative controls are reviewed and judged to be CONTINUED ON NEXT PAGE Yu MAYS DATE: 07/02/22 [facility] PAGE 3 RUN TIME: 1636 Specimen Inquiry RUN USER: INTERFACE S MELODY #: [id number] PATIENT: YULIA RIBEIROKENZI #[id number] (Continued) GROSS DESCRIPTION (Continued) acceptable. This laboratory is certified under the Clinical Laboratory ImprovementAmendments (CLIA-88) as qualified to perform high complexity clinical laboratory testing. CLINICAL INFORMATION 06/26/22, 35.6 WEEKS, LABOR. ----- Signed SIGNATURE ON FILE BebeThuyesperanza 07/02/22 1636 END OF REPORT CBC W/AUTO [id number] 07:53:00* Test Item Value Reference Range Interpretation Comme nts WHITE BLOOD CELL (test code = WBC) 6.5 K/mm3 6.5-12.3 N RED BLOOD CELL (test code = RBC) 3.53 M/mm3 3.51-4.69 N HEMOGLOBIN (test code = HGB) 11.1 g/dL 10.1-13.8 HEMATOCRIT (test code = HCT) 32.6 % 32.5-41.8 MEAN CELL VOLUME (test code = MCV) 92.4 fL 84.6-96.6 N MEAN CELL HGB (test code = MCH) 31.4 pg 27.3-33.9 N MEAN CELL HGB CONCETRATION ( test code = MCHC) 34.0 gm/dL 32.0-34.2 N RED CELL DISTRIBUTION WIDTH (test code = RDW) 13.2 % 12.2-16.3 N PLATELET COUNT (test code = PLT) 112 K/mm3 134-363 L MEAN PLATELET VOLUME (test c ode = MPV) 10.0 fL 9.2-12.7 N NEUTROPHIL % (test code = NT%) 58.6 % 57.9-77.3 N LYMPHOCYTE % (test code = LY%) 29.8 % 14.5-29.7 H MONOCYTE % (test code = MO%) 9.4 % 3.6-10.2 N EOSINOPHIL % (test code = EO%) 1.7 % 0.0-3.0 N BASOPHIL % (test code = BA%) 0.3 % 0.1-0.9 N NEUTROPHIL # (test code = NT#) 3.8 K/mm3 LYMPHOCYTE # (test code = LY#) 1.9 K/mm3 MONOCYTE # (test code = MO#) 0.6 K/mm3 EOSINOPHIL # (test code = EO#) 0.11 K/mm3 BASOPHIL # (test code = BA#) 0.0 K/mm3 RBC MORPHOLOGY REQUIRED (kp t code = RBCM) NORMAL NORMAL PLATELET MORPHOLOGY REQUIRED (test code = PLTMR) NORMAL NORMAL AB HIV 1 15:42:00* Test Item Value Reference Range Interpretation Comme nts AB HIV 1 2 (test code = [id number]) NONREACTIVE NONREACTIVE Done by [employer] 4th Gen HIV Ag/Ab Combo Screen AG HEPATITIS B [id number] 15:42:00* Test Item Value Reference Range Interpretation Comme nts AG HEPATITIS B SURFACE (test code = HBSAG) NONREACTIVE NONREACTIVE AB HEPATITIS C [id number] 15:42:00* Test Item Value Reference Range Interpretation Comme nts AB HEPATITIS C (test code = HCVAB) NONREACTIVE NONREACTIVE SIGNAL TO CUTOFF (test code = CUTOFF) 0.08 <0.80 N AB [id number] 15:42:00* Test Item Value Reference Range Interpretation Comme nts AB TREPONEMA (test code = TREPAB) NONREACTIVE NONREACTIVE COMPREHENSIVE METABOLIC [id number] 13:41:00* Test Item Value Reference Range Interpretation Comme nts SODIUM (test code = NA) 137 mEq/L 135-145 N POTASSIUM (test code = K) 3.8 mEq/L 3.5-5.0 N CHLORIDE (test code = CL) 103 mEq/L 100-115 N CARBON DIOXIDE (test code = CO2) 24 mEq/L 22-31 N ANION GAP (test code = GAP) 13.90 10-20 N GLUCOSE (test code = GLU) 74 mg/dL 65-110 N BLOOD UREA NITROGEN (test code = BUN) 5 mg/dL 7-18 L GLOMERULAR FILTRATION RATE (test code = GFR) 135 ml/min >60 N The Glomerular Filtration Rate is a calculated parameterbased on serum Creatinine, patient age and sex. GFR valuesless than 60 mL/min/1.73 square meters are indicative ofChronic Kidney Disease. Values less than 15 mL/min/1.73square meters indicate Kidney failure. The calculation forGFR is based on the CKD-EPI (2020) calculation. This formulais race indifferent and is the recommended formula for GFRby the National Kidney Foundation for Adults.The GFR will not calculate if the sex is unknown or if thepatient's age is <18 years. CREATININE (test code = CREAT) 0.5 mg/dL 0.5-1.0 N TOTAL PROTEIN (test code = PROT) 6.3 gm/dL 6.3-8.2 N ALBUMIN (test code = ALB) 2.8 gm/dL 3.4-4.8 L CALCIUM (test code = CA) 8.9 mg/dL 8.4-10.2 N BILIRUBIN TOTAL (test code = BILT) 0.4 mg/dL 0.2-1.0 N SGOT/AST (test code = AST) 21 units/L 15-37 N SGPT/ALT (test code = ALT) 19 units/L 12-78 N ALKALINE PHOSPHATASE TOTAL (test code = ALKP) 239 units/L 46-116 H CBC W/AUTO [id number] 13:20:00* Test Item Value Reference Range Interpretation Comme nts WHITE BLOOD CELL (test code = WBC) 9.2 K/mm3 6.5-12.3 N RED BLOOD CELL (test code = RBC) 4.67 M/mm3 3.51-4.69 N HEMOGLOBIN (test code = HGB) 14.7 g/dL 10.1-13.8 H HEMATOCRIT (test code = HCT) 42.0 % 32.5-41.8 H MEAN CELL VOLUME (test code = MCV) 89.9 fL 84.6-96.6 N MEAN CELL HGB (test code = MCH) 31.5 pg 27.3-33.9 N MEAN CELL HGB CONCETRATION ( test code = MCHC) 35.0 gm/dL 32.0-34.2 H RED CELL DISTRIBUTION WIDTH (test code = RDW) 13.0 % 12.2-16.3 N PLATELET COUNT (test code = PLT) 170 K/mm3 134-363 N MEAN PLATELET VOLUME (test c ode = MPV) 9.6 fL 9.2-12.7 N NEUTROPHIL % (test code = NT%) 76.2 % 57.9-77.3 N LYMPHOCYTE % (test code = LY%) 17.5 % 14.5-29.7 N MONOCYTE % (test code = MO%) 5.6 % 3.6-10.2 N EOSINOPHIL % (test code = EO%) 0.3 % 0.0-3.0 N BASOPHIL % (test code = BA%) 0.2 % 0.1-0.9 N NEUTROPHIL # (test code = NT#) 7.0 K/mm3 LYMPHOCYTE # (test code = LY#) 1.6 K/mm3 MONOCYTE # (test code = MO#) 0.5 K/mm3 EOSINOPHIL # (test code = EO#) 0.03 K/mm3 BASOPHIL # (test code = BA#) 0.0 K/mm3 RBC MORPHOLOGY REQUIRED (kp t code = RBCM) NORMAL NORMAL PLATELET MORPHOLOGY REQUIRED (test code = PLTMR) NORMAL NORMAL URINALYSIS [id number] 11:35:00* Test Item Value Reference Range Interpretation Comme nts UA COLOR (test code = COLU) YELLOW YELLOW UA APPEARANCE (test code = APPU) CLOUDY CLEAR A UA GLUCOSE DIPSTICK (test co de = DGLUU) NEGATIVE NEG UA BILIRUBIN DIPSTICK (test code = BILU) NEGATIVE NEG UA KETONE DIPSTICK (test cod e = KETU) NEGATIVE NEG UA SPECIFIC GRAVITY (test co de = SGU) 1.009 1.001-1.035 N UA BLOOD DIPSTICK (test code = SANDI) NEG NEG UA PH DIPSTICK (test code = UZIEL) 7.0 5-9 UA PROTEIN DIPSTICK (test co de = PROU) NEGATIVE NEG UA UROBILINIOGEN DIPSTICK (test code = URO) NEGATIVE mg/dL NEG UA NITRITE DIPSTICK (test co de = JE) NEG NEG UA LEUKOCYTE ESTERASE DIPSTI CK (test code = LEUU) NEG NEG UA WBC (test code = WBCU) 3-5 #/hpf NONE SEEN A UA RBC (test code = RBCU) 3-5 #/hpf NONE SEEN A UA EPITHELIAL CELLS (test co de = EPIU) MANY #/HPF RARE-FEW A UA BACTERIA (test code = BACU) MODERATE /HPF RARE-FEW A UA MUCUS (test code = MUCU) RARE NONE SEEN URINE SAMPLE: CLEAN CATCHComment On arrival if delivery is not imminent
[2024-03-26] MEDS ORDERED: NA CHLORIDE 0.9% 1,000 ML ONE (23:53)
[2024-03-27 00:38] LABS: Absolute Eosinophils 0.1 K/uL (0-0.5); Absolute Lymphocytes (CBC) 2.6 K/uL (0.7-4.9); Absolute Monocytes 0.5 K/uL (0.1-1.3); Absolute Neutrophil 3.8 K/uL (1.8-8.0); Basophils % 0.3 % (0-1.3); Eosinophils % 2.1 % (0-4.4); Hematocrit 39.8 % (36.0-45.0); Hemoglobin 14.1 g/dL (12.0-15.0); Lymphocytes % 36.6 % (15.3-44.8); MCH 30.9 pg (27.0-35.0); MCHC 35.4 g/dL (32.0-36.0); MCV 87.2 fL (80-100); MPV 7.9 fL (7.6-11.3); Monocytes % 6.6 % (3.3-12.3); Neutrophils % 54.4 % (41.7-73.7); Nucleated Red Blood Cells % 0.2 % (0-0); Platelets 148 thou/uL (152-406); RBC Red Blood Cell Count 4.57 M/uL (3.86-4.86); Red Cell Distribution Width 11.9 % (12.1-15.2)
[2024-03-27 00:45] LABS: ALT/SGPT 27 U/L (13-56); AST/SGOT 20 U/L (15-37); Albumin 3.7 g/dL (3.4-5.0); Albumin/Globulin Ratio 1.1 (1.1-1.8); Alkaline Phosphatase 73 U/L (45-117); Anion Gap 9.4 mEq/L (5.0-15.0); BUN Blood Urea Nitrogen 18 mg/dL (7-18); Bicarbonate 26 mEq/L (21-32); Bilirubin Total 0.4 mg/dL (0.2-1.0); Globulin 3.3 g/dL (2.3-3.5); Glomerular Filtration Rate 112 ml/min (=/>90); Glucose Level 125 mg/dL (74-106); Potassium 3.4 mEq/L (3.5-5.1); Sodium Level 139 mEq/L (136-145)
[2024-03-27 00:53] LABS: Bilirubin Direct < 0.2 mg/dL (0-0.2); Bilirubin Indirect, Calculated 0.2 mg/dL (0.2-0.8); Troponin High Sensitivity < 3.0 pg/mL (<58.9)
--- NOTE | 2024-03-27 02:10 | EDPHYS ---
Physician Documentation [facility] Name: Pippa Lopez Age: 23 yrs Sex: Female : 2000 Arrival Date: 03/26/2024 Time: 23:36 Bed 6 Private MD: ED Physician Wesly Lau HPI: 03/26 23:41 This 23 yrs old Female presents to ER via Unassigned with complaints of sp4 Syncope. 03/27 02:05 Patient is a very pleasant 23-year-old female who presents with acute onset of syncopal sp4 episode. Patient is stable on arrival. No signs of hypotension. Patient states she had have a history of remote syncopal episode in the past.. 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 - Infectious Disease History:: Denies. - Social history:: Smoking status: Patient denies any tobacco usage or history of. - Family history:: not pertinent. ROS: 03/27 02:05 Constitutional: Negative for fever, chills, and weight loss, positive for sp4 syncopal episode All other systems are negative, Exam: 02:00 Constitutional: This is a well developed, well nourished patient who is awake, alert, sp4 and in no acute distress. Head/Face: Normocephalic, atraumatic. Eyes: Pupils equal round and reactive to light, extra-ocular motions intact. Lids and lashes normal. Conjunctiva and sclera are not injected. Cornea within normal limits. Periorbital areas with no swelling, redness, or edema. ENT: Nares patent. No nasal discharge, no septal abnormalities noted. Tympanic membranes are normal and external auditory canals are clear. Oropharynx with no redness, swelling, or masses, exudates, or evidence of obstruction, uvula midline. Mucous membranes moist. Neck: Trachea midline, no thyromegaly or masses palpated, and no cervical lymphadenopathy. Supple, full range of motion without nuchal rigidity, or vertebral point tenderness. Chest/axilla: Normal chest wall appearance and motion. Nontender with no deformity. No lesions are appreciated. Cardiovascular: Regular rate and rhythm with a normal S1 and S2. No gallops, murmurs, or rubs. Normal PMI, no JVD. No pulse deficits. Respiratory: Lungs have equal breath sounds bilaterally, clear to auscultation and percussion. No rales, rhonchi or wheezes noted. No increased work of breathing, no retractions or nasal flaring. Abdomen/GI: Soft, with normal bowel sounds. No distension or tympany. No guarding or rebound. No evidence of tenderness throughout. Back: No spinal tenderness. No costovertebral tenderness. Skin: Warm, dry with normal turgor. Normal color with no rashes, no lesions, and no evidence of cellulitis. MS/ Extremity: Pulses equal, no cyanosis. Neurovascular intact. Full, normal range of motion. Neuro: Awake and alert, GCS 15, oriented to person, place, time, and situation. Cranial nerves II-XII grossly intact. Motor strength 5/5 in all extremities. Sensory grossly intact. Psych: Awake, alert, with orientation to person, place and time. Behavior, mood, and affect are within normal limits 02:00 ECG was reviewed by the Attending Physician. EKG at 2358 normal sinus rhythm normal EKG Vital Signs: 03/26 23:38 BP 126 / 87; Pulse 75; Resp 17; Temp 97.7; Pulse Ox 97% ; Weight 73.48 kg; Height 5 ft. bm8 1 in. ; Pain 5/10; 03/27 00:46 BP 119 / 73; Pulse 68; Resp 17; Temp 97.7; Pulse Ox 97% ; Pain 0/10; bm8 02:03 BP 112 / 70; Pulse 85; Resp 14; Temp 97.7; Pulse Ox 98% ; Pain 0/10; 8 03/26 23:38 Body Mass Index 30.61 (73.48 kg, 154.94 cm) [facility] 03/26 23:38 Pain Scale: Adult bm8 03/27 00:46 Pain Scale: Adult bm8 02:03 Pain Scale: Adult bm8 [place] Coma Score: 00:46 Eye Response: spontaneous(4). Motor Response: obeys commands(6). Verbal Response: bm8 oriented(5). Total: 15. 02:00 Eye Response: spontaneous(4). Motor Response: obeys commands(6). Verbal Response: sp4 oriented(5). Total: 15. 02:03 Eye Response: spontaneous(4). Motor Response: obeys commands(6). Verbal Response: bm8 oriented(5). Total: 15. MDM: 03/26 23:42 Medical Screening Exam initiated 4 03/27 02:05 Differential Diagnosis: cardiac arrhythmia, drug effect, idiopathic syncope, pseudo sp4 seizure, vasovagal episode. Data reviewed: vital signs, nurses notes, lab test result(s), EKG. ED course: Workup today is unremarkable. Patient stable for discharge home. Will recommend follow-up with cardiology for 48-hour Holter monitor . 03/26 23:41 Order name: Basic Metabolic Panel; Complete [facility]: [facility] 03/26 23:41 Order name: CBC with Diff; Complete Time: 02:00 [facility] 03/26 23:41 Order name: LFT's; Complete Time: 02:00 4 03/26 23:41 Order name: Troponin HS; Complete Time: 02:00 4 03/26 23:41 Order name: Test, Serum; Complete Time: 02:00 4 03/26 23:42 Order name: TSH; Complete Time: 02:00 4 03/26 23:42 Order name: T4 Free; Complete Time: 02:00 4 03/26 23:41 Order name: Cardiac monitoring; Complete Time: 23:50 [facility] 03/26 23:41 Order name: EKG - Nurse/Tech; Complete Time: 23:50 4 03/26 23:41 Order name: IV Saline Lock; Complete Time: 23:50 4 03/26 23:41 Order name: Labs collected and sent; Complete Time: 23:50 4 EC/01 23:58 Rate is 77 beats/min. Rhythm is regular, Normal Sinus Rhythm. QRS [place] is Normal. ME sp4 interval is normal. QRS interval is normal. QT interval is normal. No Q waves. T waves are Normal. No ST changes noted. Clinical impression: Normal ECG. Interpreted by me. Reviewed by me. Administered Medications: 03/27 00:12 Drug: NS 0.9% IV 1000 ml IV at 1000 ml once; to be given as a bolus over 60 minutes bm8 Route: IV; Rate: 1000 ml; Site: right antecubital; 02:04 Follow up: Response: No adverse reaction; IV Status: Completed infusion; IV Intake: bm8 1000ml Point of Care Testing: Blood Glucose: 02:05 Blood Glucose: 125 mg/dL; bm8 Ranges: Critical Glucose Levels:Adult <50 mg/dl or >400 mg/dl <40 mg/dl or >180 mg/dl Disposition Summary: 03/27/24 02:09 Discharge Ordered Notes: We recommend 24 hour rest at home Location: Home sp4 Problem: new sp4 Symptoms: have improved sp4 Condition: Stable sp4 Diagnosis - Syncope and collapse sp4 Followup: sp4 - With: Marisela Andrade MD - When: 7 - 10 days - Reason: Recheck today's complaints Discharge Instructions: - Discharge Summary Sheet sp4 - Syncope, [id number] sp4 Forms: - Patient Portal Instructions sp4 Signatures: Dispatcher [employer] Wesly Alfaro MD MD sp4 Christo Botello, RN RN bm8 Corrections: (The following items were deleted from the chart) 03/26 23:41 23:41 BASIC METABOLIC PANEL+C.LAB.BRZ ordered. EDMS EDMS 23:41 23:41 CBC+H.LAB.BRZ ordered. EDMS EDMS 23:41 23:41 HEPATIC FUNCTION+C.LAB.BRZ ordered. EDMS EDMS 23:41 23:41 Troponin High Sensitivity+C.LAB.BRZ ordered. EDMS EDMS
--- NOTE | 2024-03-27 02:10 | ER ---
Nurse's Notes [facility] Name: Pippa Lopez Age: 23 yrs Sex: Female : 2000 Arrival Date: 03/26/2024 Time: 23:36 Bed 6 Private MD: Diagnosis: Syncope and collapse Presentation: 03/26 23:38 Chief complaint: Patient states: i NEARLY PASSED OUT EARLIER AND I HAVE A BAD HEADACHE bm8 THAT IS CENTERED BE HIND MY EYES. Coronavirus screen: At this time, the client does not indicate any symptoms associated with coronavirus-19. Ebola Screen: Patient negative for fever greater than or equal to 101.5 degrees Fahrenheit, and additional compatible Ebola Virus Disease symptoms Patient denies exposure to infectious person. Patient denies travel to an Ebola-affected area in the 21 days before illness onset. No symptoms or risks identified at this time. Initial Sepsis Screen: Does the patient meet any 2 criteria? No. Patient's initial sepsis screen is negative. Does the patient have a suspected source of infection? No. Patient's initial sepsis screen is negative. Risk Assessment: Do you want to hurt yourself or someone else? Patient reports no desire to harm self or others. Onset of symptoms was March 26, 2024 at 22:00. 23:38 Method Of Arrival: EMS: [facility] bm8 23:38 Acuity: ELVIRA 3 bm8 Triage Assessment: 23:48 General: Appears in no apparent distress. comfortable, Behavior is calm, cooperative, bm8 appropriate for age. Pain: Complains of pain in behind eyes Pain currently is 6 out of 10 on a pain scale. EENT: No deficits noted. No signs and/or symptoms were reported regarding the EENT system. Neuro: No deficits noted. Level of Consciousness is awake, alert, obeys commands, Oriented to person, place, time, situation, Appropriate for age Reports headache frontal area. Cardiovascular: Reports syncope, Heart tones S1 S2 present Capillary refill < 3 seconds in bilateral fingers Patient's skin is warm and dry. Respiratory: Airway is patent Respiratory effort is even, unlabored, Respiratory pattern is regular, symmetrical, Breath sounds are clear bilaterally. GI: No deficits noted. : No deficits noted. Derm: No deficits noted. Musculoskeletal: No deficits noted. 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 - Infectious Disease History:: Denies. - Social history:: Smoking status: Patient denies any tobacco usage or history of. - Family history:: not pertinent. Screenin 00:55 [facility] ED Fall Risk Assessment (Adult) History of falling in the last 3 months, bm8 including since admission No falls in past 3 months (0 pts) Confusion or Disorientation No (0 pts) Intoxicated or Sedated No (0 pts) Impaired Gait No (0 pts) Mobility Assist Device Used No (0 pt) Altered Elimination No (0 pt) Score/Fall Risk Level 0 - 2 = Low Risk Oriented to surroundings, Maintained a safe environment, Educated pt \T\ family on fall prevention, incl call for assistance when getting out of bed, Assessed \T\ reinforced patient's understanding of fall precautions, Hourly rounding (assess needs \T\ fall precautionary measures) done, Used ambulatory aids as needed (educated on \T\ assisted with), Used gait belt as appropriate. Abuse screen: Denies threats or abuse. Nutritional screening: No deficits noted. Tuberculosis screening: No symptoms or risk factors identified. Assessment: 00:55 Reassessment: Patient appears in no apparent distress at this time. Patient and/or bm8 family updated on plan of care and expected duration. Pain level reassessed. pt is resting with eyes closed breathing is even unlabored with symmetrical rise and fall of chest. Significant other is at bed with pt. Patient denies pain at this time. Patient states feeling better. Patient states symptoms have improved. General: Appears comfortable, Behavior is drowsy. Pain: Denies pain. Neuro: No deficits noted. Level of Consciousness is obeys commands, Oriented to person, place, time, situation, Appropriate for age. Cardiovascular: Denies chest pain, Rhythm is sinus rhythm. Respiratory: Airway is patent Trachea midline Respiratory effort is even, unlabored, Respiratory pattern is regular, symmetrical, Breath sounds are clear bilaterally. 02:03 Reassessment: Patient appears in no apparent distress at this time. Patient and/or bm8 family updated on plan of care and expected duration. Pain level reassessed. Patient is alert, oriented x 3, equal unlabored respirations, skin warm/dry/pink. Patient denies pain at this time. Patient states feeling better. Patient states symptoms have improved. Vital Signs: 03/26 23:38 BP 126 / 87; Pulse 75; Resp 17; Temp 97.7; Pulse Ox 97% ; Weight 73.48 kg; Height 5 ft. bm8 1 in. ; Pain 5/10; 03/27 00:46 BP 119 / 73; Pulse 68; Resp 17; Temp 97.7; Pulse Ox 97% ; Pain 0/10; bm8 02:03 BP 112 / 70; Pulse 85; Resp 14; Temp 97.7; Pulse Ox 98% ; Pain 0/10; bm8 03/26 23:38 Body Mass Index 30.61 (73.48 kg, 154.94 cm) bm8 02 23:38 Pain Scale: Adult bm8 03/27 00:46 Pain Scale: Adult bm8 02:03 Pain Scale: Adult bm8 [place] Coma Score: 00:46 Eye Response: spontaneous(4). Motor Response: obeys commands(6). Verbal Response: bm8 oriented(5). Total: 15. 02:00 Eye Response: spontaneous(4). Motor Response: obeys commands(6). Verbal Response: sp4 oriented(5). Total: 15. 02:03 Eye Response: spontaneous(4). Motor Response: obeys commands(6). Verbal Response: bm8 oriented(5). Total: 15. ED Course: 03/26 23:38 Patient arrived in ED. jj6 23:41 Wesly Lau MD is Attending Physician. sp4 23:46 Christo Botello RN is Primary Nurse. bm8 23:48 Triage completed. bm8 23:48 Arm band placed on right wrist. bm8 23:50 No provider procedures requiring assistance completed. Inserted saline lock: 20 gauge bm8 in right antecubital area, using aseptic technique. Blood collected. Flushed with 10 mL NS. 03/27 00:55 Patient has correct armband on for positive identification. Placed in gown. Bed in low bm8 position. Call light in reach. Side rails up X2. Adult w/ patient. Client placed on continuous cardiac and pulse oximetry monitoring. NIBP monitoring applied. photo intern on. Pulse ox on. NIBP on. Door closed. Warm blanket given. Pillow given. Verbal reassurance given. Head of bed elevated. 00:55 Patient maintains SpO2 saturation greater than 95% on room air. bm8 02:03 Provided Education on: post er care. bm8 02:03 IV discontinued, intact, bleeding controlled, No redness/swelling at site. Pressure bm8 dressing applied. 02:09 Marisela Andrade MD is Referral Physician. sp4 Administered Medications: 00:12 Drug: NS 0.9% IV 1000 ml IV at 1000 ml once; to be given as a bolus over 60 minutes bm8 Route: IV; Rate: 1000 ml; Site: right antecubital; 02:04 Follow up: Response: No adverse reaction; IV Status: Completed infusion; IV Intake: bm8 1000ml Medication: 00:55 VIS not applicable for this client. bm8 Point of Care Testing: Blood Glucose: 02:05 Blood Glucose: 125 mg/dL; bm8 Ranges: Intake: 02:04 IV: 1000ml; Total: 1000ml. bm8 Outcome: 02:03 Discharged to home ambulatory, with family, bm8 02:03 Condition: stable 02:03 Discharge instructions given to patient, family, Instructed on discharge instructions, follow up and referral plans. no drinking with medication, no driving heavy equipment, medication usage, safety practices, Demonstrated understanding of instructions, follow-up care, medications, 02:09 Discharge ordered by . sp4 02:20 Patient left the ED. bm8 Signatures: Violet [id number] Wesly Lau MD MD sp4 Christo Botello, RN RN bm8
[2024-03-27 02:24] VITALS: TEMP 97.7
[2024-03-27 02:27] VITALS: BP 112/70; O2SAT 98
--- NOTE | 2024-03-29 12:20 | EKG ---
Test Date: 2024-03-26 Test Time: 23:58:46 Hand Outside Cutter: ROLANDO MEASUREMENT RESULTS: Intervals: Rate: 77 [place]: 152 QRSD: 88 QT: 388 QTc: 439 [place]: P: 60 [place]: 152 QRS: 57 T: 37 INTERPRETIVE STATEMENTS: Normal sinus rhythm Normal ECG No previous ECG available for comparison Electronically Signed On 03-29-24 12:16:29 CURRICULUM ASSISTANT PRINCIPAL by Alvino Martin
== END 2024-03-27 02:20 | disposition home or self-care (01) ==
LOC: ER 23:36
DX: R55 Syncope and collapse (principal)
CPT/HCPCS: 96361; 93005; 85025; 80048; 36415; 84703; 80076; 84443; 84484; 84439; 96360; 99285; J7030